=== PATIENT | female | born 1940 | race Caucasian/White ===

== ENCOUNTER 2017-10-21 10:52 | Emergency (ER) | payer MEDICARE, MEDICAID, SELFPAY ==
[2017-10-21 11:13] VITALS: BP 160/90; PULSE 70; RESP 16; TEMP 37.1; O2SAT 96; BMI 29.0
--- NOTE | 2017-10-21 11:16 | XR_ITS ---
XR hand RT min 3V HISTORY: ITS.REASON: pain ORDERING PHYSICIAN: Jinny Crow MD PATIENT AGE: 77 years COMPARISON: 03/26/2017 FINDINGS: Gull wing deformity involves the PIP of the third, fourth, and fifth digit and the DIP of the second and third digits as well as the fifth DIP with central erosions and marginal proliferation with diffuse loss of cartilage space consistent with erosive osteoarthritis. Osteoarthritic changes also involve the first metacarpal carpal joint and first interphalangeal joint as well as the second metacarpal phalangeal joint. There is mild are subluxation of the middle phalanx of the third, fourth, and fifth fingers. No fracture or dislocation. No lytic or blastic change. There may be an old fracture of the distal radius. IMPRESSION: Erosive osteoarthritis of the right hand, no significant change from 03/26/2017
--- NOTE | 2017-10-21 11:19 | HMH.EDUTC ---
[facility] – [place] Disposition Clinical Impression: Radial fracture Qualifiers: Encounter type: initial encounter Radius location: distal Fracture morphology: other fracture Laterality: right Disposition: Home, Self-Care Condition on Discharge: Good Instructions: How To Perform RICE (Rest, Ice, Compress, Elevate), DI for Forearm Fracture Additional Instructions: *RICE, Rest the extremity, Ice 15-20 minutes 3-4 times daily, Compress- wear the warren wrap as discussed as much as possible to help reduce swelling and pain, Elevate the extremity when at rest *Warren wrap is for support and help control swelling, use it except in the shower. Be sure that is not to tight but not to loose either *Elevate when resting *Ibuprofen 600-800mg every 6-8 hours as needed for pain an inflammation. If need something more can take Tylenol in between doses of Ibuprofen to help Immediately follow up for new or worsening of symptoms, or no noticeable improvement over the next 3-5 days Follow up with Dr Chakraborty or Dr [facility] Call tomorrow to make appointment Wear splint until seen by Ortho Follow up with family doctor Referrals: Osvaldo Gomez MD [Primary Care Provider] - Time of Disposition: 12:02 Medical Decision Making - Medical Records Medical records reviewed: Yes: I reviewed the patient's medical records. Vital Signs: 10/21/17 11:13 Temperature 98.8 F Temperature Source Temporal Artery Scan Pulse Rate [Left Brachial] 70 Respiratory Rate 16 Blood Pressure [Left Arm] 160/90 Blood Pressure Mean [Left Arm] 113 Blood Pressure Source [Left Arm] Automatic Cuff Blood Pressure Position [Left Arm] Sitting 02 Sat by Pulse Oximetry 96 Oxygen Delivery Method Room Air Orders (Tests/Meds): ED MEDICATIONS Discontinued Medications Generic Name Dose Route Start Last Admin Trade Name Freq PRN Reason Stop Dose Admin Ibuprofen 600 mg 10/21/17 11:22 10/21/17 11:26 Motrin 600mg Tablet PO 10/21/17 11:23 600 mg ONCE ONE Administration ORDERS Category Date Time Status XR hand RT min 3V Stat Exams 10/21/17 11:16 Taken - Radiology Data #1 Image(s): Wrist Image Reviewed: Yes I reviewed the patient's radiology image w/the ED provider subacute distal radial fracture - Akin Inquiry Pt receiving controlled substance: No Akin was queried for this patient: No [facility] UTC HPI - General Stated complaint: r hand pain Mode of Arrival: Ambulatory Source of Information: Patient Limitations: No Limitations Description of Symptoms (Recalled from Triage Doc. by RN): C/O rt hand pain since this morning. No known injury HEENT Symptoms (Recalled from RN notes): No Resp Symptoms (Recalled from RN notes): No Skin Symptoms (Recalled from RN notes): No MS Symptoms (Recalled from RN notes): Yes (Rt hand pain) Functional Status (Recalled from RN notes): n/a - History of Present Illness Provider Complaint: Patient state that she woke up this morning and she was having pain and swelling in her right hand State that she seen her Rhematologist last week and they discussed doing injections in that arm because she has been having pain on and off for several months Grand-daughter in room and advised that patient has a 95lb dog and it recently jumped up on her and hit her right hand and it was after that the pain and swelling started State that she has a history of osteoarthritis - Related Data Allergies Allergy/AdvReac Type Severity Reaction Status Date / Time acetaminophen [From PERCOCET] Allergy Mild Verified 10/21/17 11:17 codeine [CODEINE] Allergy Mild Verified 10/21/17 11:17 morphine [MORPHINE] Allergy Mild Verified 10/21/17 11:17 oxycodone [From PERCOCET] Allergy Mild Verified 10/21/17 11:17 penicillin G [PENICILLIN G] Allergy Mild Verified 10/21/17 11:17 loratadine [From CLARITIN] Allergy Unknown Verified 10/21/17 11:17 - Worker's Comp Is this a Worker's Comp case?: No [facility] History I have reviewed the patient's
--- NOTE | 2017-10-21 11:24 | ED_ITS ---
[facility] [place] Clinical Impression: Radial fracture Qualifiers: Encounter type: initial encounter Radius location: distal Fracture morphology: other fracture Laterality: right Disposition: Home, Self-Care Condition on Discharge: Good Instructions: How To Perform RICE (Rest, Ice, Compress, Elevate), DI for Forearm Fracture Additional Instructions: *RICE, Rest the extremity, Ice 15-20 minutes 3-4 times daily, Compress- wear the warren wrap as discussed as much as possible to help reduce swelling and pain, Elevate the extremity when at rest *Warren wrap is for support and help control swelling, use it except in the shower. Be sure that is not to tight but not to loose either *Elevate when resting *Ibuprofen 600-800mg every 6-8 hours as needed for pain an inflammation. If need something more can take Tylenol in between doses of Ibuprofen to help Immediately follow up for new or worsening of symptoms, or no noticeable improvement over the next 3-5 days Follow up with Dr Chakraborty or Dr [facility] Call tomorrow to make appointment Wear splint until seen by Ortho Follow up with family doctor Referrals: Osvaldo Gomez MD [Primary Care Provider] - Time of Disposition: 12:02 Medical Decision Making - Medical Records Medical records reviewed: Yes: I reviewed the patient's medical records. Vital Signs: 10/21/17 11:13 Temperature 98.8 F Temperature Source Temporal Artery Scan Pulse Rate [Left Brachial] 70 Respiratory Rate 16 Blood Pressure [Left Arm] 160/90 Blood Pressure Mean [Left Arm] 113 Blood Pressure Source [Left Arm] Automatic Cuff Blood Pressure Position [Left Arm] Sitting 02 Sat by Pulse Oximetry 96 Oxygen Delivery Method Room Air Orders (Tests/Meds): ED MEDICATIONS Discontinued Medications Generic Name Dose Route Start Last Admin Trade Name Freq PRN Reason Stop Dose Admin Ibuprofen 600 mg 10/21/17 11:22 10/21/17 11:26 Motrin 600mg Tablet PO 10/21/17 11:23 600 mg ONCE ONE Administration ORDERS Category Date Time Status XR hand RT min 3V Stat Exams 10/21/17 11:16 Taken - Radiology Data #1 Image(s): Wrist Image Reviewed: Yes I reviewed the patient's radiology image w/the ED provider subacute distal radial fracture - Akin Inquiry Pt receiving controlled substance: No Akin was queried for this patient: No [facility] UTC HPI - General Stated complaint: r hand pain Mode of Arrival: Ambulatory Source of Information: Patient Limitations: No Limitations Description of Symptoms (Recalled from Triage Doc. by RN): C/O rt hand pain since this morning. No known injury HEENT Symptoms (Recalled from RN notes): No Resp Symptoms (Recalled from RN notes): No Skin Symptoms (Recalled from RN notes): No MS Symptoms (Recalled from RN notes): Yes (Rt hand pain) Functional Status (Recalled from RN notes): n/a - History of Present Illness Provider Complaint: Patient state that she woke up this morning and she was having pain and swelling in her right hand State that she seen her Rhematologist last week and they discussed doing injections in that arm because she has been having pain on and off for several months Grand-daughter in room and advised that patient has a 95lb dog and it recently jumped up on her and hit her right hand and it was after that the pain and swelling started State that she has a history o
[2017-10-21 12:11] VITALS: BP 160/90; PULSE 70; RESP 16; TEMP 37.1; O2SAT 96
== END 2017-10-21 12:13 | disposition home or self-care (01) ==
PROVIDERS: Emergency Provider Emergency Medicine; Family Provider Family Medicine; PCP Family Medicine
DX: S52.90XA Unspecified fracture of unspecified forearm, initial encounter for closed fracture (principal); W54.1XXA Struck by dog, initial encounter; Y92.019 Unspecified place in single-family (private) house as the place of occurrence of the external cause; Z88.0 Allergy status to penicillin; Z88.6 Allergy status to analgesic agent
CPT/HCPCS: 29125; G0463; 73130; 99203

== ENCOUNTER → 2017-10-31 08:38 | Outpatient (CLI) | payer MEDICARE, MEDICAID, SELFPAY ==
[2017-10-31 08:43] LABS: Microscopic, Urine URINE MICROSCOPIC (MICROSCOPIC)
[2017-10-31 09:06] LABS: Basophils % 0.3 % (0.1-2.0); Eosinophils # 0.3 K/mm3 (0.0-0.4); Eosinophils % 3.6 % (0.1-12.0); Hematocrit 40.4 % (37.0-47.0); Lymphocytes # 1.6 K/mm3 (0.7-4.5); Lymphocytes % 18.8 K/mm3 (10-50); Mean Corpuscular HGB Conc 32.1 g/dL (31.8-35.4); Mean Corpuscular Hemoglobin 30.4 pg (27.0-31.2); Mean Corpuscular Volume 94.7 fl (81-99); Mean Platelet Volume 6.8 fl (7.4-10.4); Monocytes # 0.3 K/mm3 (0.1-1.0); Monocytes % 4.1 % (1.7-9.3); Neutrophils % 73.3 % (37.0-80.0); Platelet Count 384 K/mm3 (142-424); Red Blood Count 4.27 M/mm3 (4.20-5.40); White Blood Count 8.2 K/mm3 (4.8-10.8)
[2017-10-31 09:17] LABS: Prothrombin Time 9.7 seconds (9.4-11.8)
[2017-10-31 09:18] LABS: Appearance,Urine CLEAR (Clear); Bilirubin,Urine Negative (Negative); Blood, Urine Negative (Negative); Color,Urine YELLOW (Yellow); Glucose,Urine (UA) Negative (Negative); Ketones,Urine Negative (Negative); Leukocyte Esterase,Urine Negative (Negative); Nitrate,Urine Negative (Negative); PH,Urine 7.5 (5.0-8.5); Protein,Urine Negative (Negative); Urobilinogen,Urine 0.2 EU/dl (0.2)
--- NOTE | 2017-10-31 09:20 | XR_ITS ---
XR chest 2V HISTORY: ITS.REASON: SHORTNESS OF BREATH ORDERING PHYSICIAN: Osvaldo Gomez MD PATIENT AGE: 77 years COMPARISON: 01/30/2016 FINDINGS: Unremarkable cardiovascular structures. Calcified granulomas present in the left lower lobe. The lungs are otherwise clear. No acute infiltrate. There is an epidural catheter in the midthoracic region posteriorly. Prior spinal fusion of the lumbar spine with multiple interpedicular screws. 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 IMPRESSION: As above, no acute finding
[2017-10-31 09:24] LABS: Bacteria,Urine Trace /lpf
[2017-10-31 10:24] LABS: Blood Urea Nitrogen 13 mg/dL (7-18); Carbon Dioxide 33 mmol/L (21.0-32.0); Chloride 107 mmol/L (98-107); Creatinine,Serum 0.73 mg/dL (0.55-1.02); Estimated Glomerular Filt Rate 78 ml/min (>60); GFR (African American) 94 ML/MIN (>60); Glucose 100 mg/dL (74-106); Sodium 144 mmol/L (136-145)
== END ==
PROVIDERS: Visit Provider Family Medicine
DX: Z01.818 Encounter for other preprocedural examination (principal); Z51.81 Encounter for therapeutic drug level monitoring
CPT/HCPCS: 36415; 71046; 80048; 81001; 85025; 85610; 85730; 93005

== ENCOUNTER 2017-11-25 13:12 | Emergency (ER) | payer MEDICARE, MEDICAID, SELFPAY ==
--- NOTE | 2017-11-25 | NVE_ITS ---
Venous Exam Indications: 729.5 Pain in limb. 729.81 Swelling of limb. IMPRESSIONS No evidence of deep or superficial vein thrombosis involving the left lower extremity Left lower extremity venous duplex evaluation. Doppler flow study including spectral analysis, color and kemp scale imaging. Location: Bedside. Patient status: Emergency department. CRITICAL FINDINGS - Reported to: Dr. Crow - Read back and verified. - 11/25/2017 - 5:00 PM Tables: Venous flow and imaging: + +-------+ + Location Overall Flow properties + +-------+ + Left common femoral Patent Normal phasicity; spontaneous; normal augmentation; compressible + +-------+ + Left saphenofemoral junction Patent Compressible + +-------+ + Left profunda femoral Patent Compressible + +-------+ + Left femoral Patent Normal phasicity; spontaneous; normal augmentation; compressible + +-------+ + Left greater saphenous Patent Normal phasicity; spontaneous; normal augmentation; compressible + +-------+ + Left popliteal Patent Normal phasicity; spontaneous; normal augmentation; compressible + +-------+ + Left posterior tibial Patent Compressible + +-------+ + Left peroneal Patent Compressible + +-------+ + Left gastrocnemius Patent Compressible + +-------+ + Left soleal Patent Compressible + +-------+ + (Report amended ) Electronically signed by: Elver Reis [id number]
[2017-11-25 13:23] VITALS: BP 122/82; PULSE 72; RESP 16; TEMP 36.6; O2SAT 97; BMI 29.0
--- NOTE | 2017-11-25 13:52 | HMH.EDEXTP ---
ED Disposition Clinical Impression: CHF (congestive heart failure), History of knee replacement procedure of left knee, Non-compliance with treatment, Leg edema, Cellulitis Disposition: Home, Self-Care Condition on Discharge: Fair Instructions: DI for Skin Abscess Additional Instructions: 1- leg elevation at rest and robby hoses when standing. . 2- use diuretic regularly, no added salt. 3- start bactrim DS BId. 4- follow up with Dr Park in am 5- do not rupture the bullae or infection will happen. 6- call Dr Mcclain in AM for a follow up. Prescriptions: Sulfamethoxazole/Trimethoprim [Bactrim DS tablet] 1 each PO BID #20 tab Referrals: Osvaldo Mcclain MD [Primary Care Provider] - - Critical Care Critical Care Time: No Attestation: On 11/25/17, the high probability of a clinically significant, sudden or life threatening deterioration of the following system(s) required my full and direct attention, intervention and personal management. The time I documented below is in addition to time spent performing reported procedures but includes the following listed in this critical care notation. Medical Decision Making - Akin Inquiry Pt receiving controlled substance: No Akin was queried for this patient: No Vital Signs: 11/25/17 13:23 11/25/17 15:51 Temperature 97.8 F Temperature Source Oral Pulse Rate [Left Radial] 72 69 Respiratory Rate 16 18 Blood Pressure [Left Arm] 122/82 147/73 Blood Pressure Mean [Left Arm] 95 97 Blood Pressure Source [Left Arm] Automatic Cuff Automatic Cuff Blood Pressure Position [Left Arm] Sitting Sitting 02 Sat by Pulse Oximetry 97 98 Oxygen Delivery Method Room Air Room Air - Lab Data Lab Results 11/25/17 14:12: WBC 8.1, RBC 3.57 L, Hgb 10.9 L, Hct 34.2 L, MCV 95.8, MCH 30.6, MCHC 32.0, RDW 13.2, Plt Count 482 H, MPV 7.2 L, Neut % (Auto) 71.1, Lymph % (Auto) 20.9, [place] % (Auto) 4.2, Eos % (Auto) 3.3, Baso % (Auto) 0.4, Neut # (Auto) 5.8, Lymph # (Auto) 1.7, [place] # (Auto) 0.3, Eos # (Auto) 0.3, Baso # (Auto) 0.0, ESR 99 H 11/25/17 14:12: D-Dimer 3310 H* 11/25/17 14:12: Sodium 142, Potassium 3.8, Chloride 106, Carbon Dioxide 30, Anion Gap 9.8, BUN 12, Creatinine 0.74, Estimated Creat Clear 63, Estimated GFR 77, Est GFR ( Amer) 93, Glucose 94, Uric Acid 5.8, C-Reactive Protein 7.2 H Result diagrams: 11/25/17 14:12 11/25/17 14:12 Orders (Tests/Meds): ED MEDICATIONS Discontinued Medications Generic Name Dose Route Start Last Admin Trade Name Freq PRN Reason Stop Dose Admin Furosemide 40 mg 11/25/17 13:58 11/25/17 14:14 Lasix 40mg/4ml Vial IV 11/25/17 13:59 40 mg ONCE ONE Administration Ceftriaxone Sodium 1 gm/ 50 mls @ 100 mls/hr 11/25/17 15:43 11/25/17 15:49 Sodium Chloride IV 11/25/17 16:12 100 mls/hr ONCE ONE Administration Protocol ORDERS Category Date Time Status US extremity LT limited Stat Exams 11/25/17 15:06 Ordered - US Data US Images: Lower Extremity ED US Reviewed: Yes: I have reviewed the patient's US results Preliminary Findings: Normal/NAD Findings Narrative: I discussed with the us technologist and the study was negative for DVT. Medical Decision Narrative: I discussed with the patient and her daughter the need for leg elevation and use ROBBY hose use the diuretics appropriately and started on antibiotics and see Dr. Park in the morning. Extremity Problem HPI - General Chief complaint: Skin/Abscess/Foreign Body Stated complaint: Surgery 11/14/17 Left Knee replace. knee &foot swe Time Seen by Provider: 11/25/17 14:00 Mode of Arrival: Ambulatory Limitations: No Limitations Description of Symptoms (Recalled from ER Triage Doc. by RN): LEFT KNEE SURGERY ON THE AND NOW HAS SWELLING DISTAL TO THE SURGICAL SITE, REDNESS AND WARMTH. BLISTER ON FEET. - History of Present Illness HPI Narrative: 77 years old white female with history of congestive heart failure and b
--- NOTE | 2017-11-25 13:55 | ED_ITS ---
ED Disposition Clinical Impression: CHF (congestive heart failure), History of knee replacement procedure of left knee, Non-compliance with treatment, Leg edema, Cellulitis Disposition: Home, Self-Care Condition on Discharge: Fair Instructions: DI for Skin Abscess Additional Instructions: 1- leg elevation at rest and todd hoses when standing. . 2- use diuretic regularly, no added salt. 3- start bactrim DS BId. 4- follow up with Dr Park in am 5- do not rupture the bullae or infection will happen. 6- call Dr Mcclain in AM for a follow up. Prescriptions: Sulfamethoxazole/Trimethoprim [Bactrim DS tablet] 1 each PO BID #20 tab Referrals: Osvaldo Mcclain MD [Primary Care Provider] - - Critical Care Critical Care Time: No Attestation: On 11/25/17, the high probability of a clinically significant, sudden or life threatening deterioration of the following system(s) required my full and direct attention, intervention and personal management. The time I documented below is in addition to time spent performing reported procedures but includes the following listed in this critical care notation. Medical Decision Making - Akin Inquiry Pt receiving controlled substance: No Akin was queried for this patient: No Vital Signs: 11/25/17 13:23 11/25/17 15:51 Temperature 97.8 F Temperature Source Oral Pulse Rate [Left Radial] 72 69 Respiratory Rate 16 18 Blood Pressure [Left Arm] 122/82 147/73 Blood Pressure Mean [Left Arm] 95 97 Blood Pressure Source [Left Arm] Automatic Cuff Automatic Cuff Blood Pressure Position [Left Arm] Sitting Sitting 02 Sat by Pulse Oximetry 97 98 Oxygen Delivery Method Room Air Room Air - Lab Data Lab Results 11/25/17 14:12: WBC 8.1, RBC 3.57 L, Hgb 10.9 L, Hct 34.2 L, MCV 95.8, MCH 30.6 , MCHC 32.0, RDW 13.2, Plt Count 482 H, MPV 7.2 L, Neut % (Auto) 71.1, Lymph % ( Auto) 20.9, [place] % (Auto) 4.2, Eos % (Auto) 3.3, Baso % (Auto) 0.4, Neut # (Auto ) 5.8, Lymph # (Auto) 1.7, [place] # (Auto) 0.3, Eos # (Auto) 0.3, Baso # (Auto) 0.0, ESR 99 H 11/25/17 14:12: D-Dimer 3310 H* 11/25/17 14:12: Sodium 142, Potassium 3.8, Chloride 106, Carbon Dioxide 30, Anion Gap 9.8, BUN 12, Creatinine 0.74, Estimated Creat Clear 63, Estimated GFR 77, Est GFR ( Amer) 93, Glucose 94, Uric Acid 5.8, C-Reactive Protein 7.2 H Result diagrams: 11/25/17 14:12 11/25/17 14:12 Orders (Tests/Meds): ED MEDICATIONS Discontinued Medications Generic Name Dose Route Start Last Admin Trade Name Freq PRN Reason Stop Dose Admin Furosemide 40 mg 11/25/17 13:58 11/25/17 14:14 Lasix 40mg/4ml Vial IV 11/25/17 13:59 40 mg ONCE ONE Administration Ceftriaxone Sodium 1 gm/ 50 mls @ 100 mls/hr 11/25/17 15:43 11/25/17 15:49 Sodium Chloride IV 11/25/17 16:12 100 mls/hr ONCE ONE Administration Protocol ORDERS Category Date Time Status US extremity LT limited Stat Exams 11/25/17 15:06 Ordered - US Data US Images: Lower Extremity ED US Reviewed: Yes: I have reviewed the patient's US results Preliminary Findings: Normal/NAD Findings Narrative: I discussed with the us technologist and the study was negative for DVT. Medical Decision Narrative: I discussed with the patient and her daughter the need for leg elevation and
[2017-11-25 14:23] LABS: Basophils % 0.4 % (0.1-2.0); Eosinophils # 0.3 K/mm3 (0.0-0.4); Eosinophils % 3.3 % (0.1-12.0); Hematocrit 34.2 % (37.0-47.0); Hemoglobin 10.9 g/dL (12.2-16.2); Lymphocytes # 1.7 K/mm3 (0.7-4.5); Lymphocytes % 20.9 K/mm3 (10-50); Mean Corpuscular Hemoglobin 30.6 pg (27.0-31.2); Mean Corpuscular Volume 95.8 fl (81-99); Mean Platelet Volume 7.2 fl (7.4-10.4); Monocytes # 0.3 K/mm3 (0.1-1.0); Monocytes % 4.2 % (1.7-9.3); Neutrophils # 5.8 K/mm3 (1.8-7.8); Neutrophils % 71.1 % (37.0-80.0); Platelet Count 482 K/mm3 (142-424); Red Blood Count 3.57 M/mm3 (4.20-5.40); Red Cell Distribution Width 13.2 % (11.5-17.5); White Blood Count 8.1 K/mm3 (4.8-10.8)
[2017-11-25 14:30] LABS: Anion Gap 9.8 mEq/L (5-15); Blood Urea Nitrogen 12 mg/dL (7-18); C-Reactive Protein 7.2 mg/L (0.0-0.9); Carbon Dioxide 30 mmol/L (21.0-32.0); Chloride 106 mmol/L (98-107); Creatinine Clearance Estimated 63 mL/min (0-300); Creatinine,Serum 0.74 mg/dL (0.55-1.02); Estimated Glomerular Filt Rate 77 ml/min (>60); GFR (African American) 93 ML/MIN (>60); Glucose 94 mg/dL (74-106); Potassium 3.8 mmoL/L (3.5-5.1); Sodium 142 mmol/L (136-145); Uric Acid 5.8 mg/dL (2.6-7.2)
[2017-11-25 14:52] LABS: D-Dimer 3310 (0-400)
[2017-11-25 15:03] LABS: Erythrocyte Sedimentation Rate 99 mm/hr (0-30)
--- NOTE | 2017-11-25 15:23 | PC.NURSE ---
[facility] called and stated that they were on their way in and would be approx 45 mins until arrival.
[2017-11-25 15:51] VITALS: BP 147/73; PULSE 69; RESP 18; O2SAT 98
--- NOTE | 2017-11-25 16:25 | PC.NURSE ---
[facility] at bedside at this time.
[2017-11-25 17:16] VITALS: BP 156/88; PULSE 64; RESP 18; TEMP 36.6; O2SAT 95
== END 2017-11-25 17:00 | disposition home or self-care (01) ==
PROVIDERS: Emergency Provider Emergency Medicine; Family Provider Family Medicine; PCP Family Medicine
DX: R60.0 Localized edema (principal); Z96.652 Presence of left artificial knee joint; I50.9 Heart failure, unspecified; L03.116 Cellulitis of left lower limb; Z88.0 Allergy status to penicillin; Z88.6 Allergy status to analgesic agent; Z88.8 Allergy status to other drugs, medicaments and biological substances
CPT/HCPCS: 80048; 84550; 85025; 85378; 85651; 86140; 93971; 96374; 96375; 99284

== ENCOUNTER → 2018-03-11 10:12 | Outpatient (CLI) | payer MEDICARE, MEDICAID, SELFPAY ==
--- NOTE | 2018-03-11 10:14 | MM_ITS ---
MM Dig screening mamm BI w/CAD CAD Screening COMPARISON: Digital mammograms 01/29/2017 and additional views left breast 02/09/2017 INDICATION: There is no personal or family history of breast cancer TECHNIQUE: Standard CC and MLO images were obtained. R2 CAD reviewed. FINDINGS: The breasts are composed primarily of fat with minimal scattered fibroglandular densities in the subareolar regions bilaterally. There is arterial calcification in each breast and there are few scattered benign-appearing microcalcifications in each breast. There is a mole marker on each breast. There is no new or suspicious lesion in either breast and there are no suspicious microcalcifications. IMPRESSION: Fibrofatty parenchyma with no suspicious lesion seen BI-RADS Category: 2 Benign Finding(s) RECOMMENDED FOLLOW-UP: 1YR - 1 YEAR FOLLOW-UP (A letter has been sent to the patient regarding results of the study.)
== END ==
PROVIDERS: Family Provider Family Medicine; PCP Family Medicine; Visit Provider Family Medicine
DX: Z12.31 Encounter for screening mammogram for malignant neoplasm of breast (principal)
CPT/HCPCS: 77067

== ENCOUNTER 2018-11-16 12:53 | Observation (INO) ==
[2018-11-16 13:32] LABS: Basophils % 0.5 % (0.1-2.0); Eosinophils % 0.9 % (0.1-12.0); Hematocrit 40.9 % (37.0-47.0); Hemoglobin 13.8 g/dL (12.2-16.2); Lymphocytes # 1.3 K/mm3 (0.7-4.5); Lymphocytes % 29.7 % (10-50); Mean Corpuscular HGB Conc 33.8 g/dL (31.8-35.4); Mean Corpuscular Hemoglobin 31.2 pg (27.0-31.2); Mean Corpuscular Volume 92.5 fl (81-99); Mean Platelet Volume 6.8 fl (7.4-10.4); Monocytes # 0.3 K/mm3 (0.1-1.0); Monocytes % 6.4 % (1.7-9.3); Neutrophils # 2.6 K/mm3 (1.8-7.8); Neutrophils % 62.4 % (37.0-80.0); Platelet Count 243 K/mm3 (142-424); Red Blood Count 4.42 M/mm3 (4.20-5.40); Red Cell Distribution Width 13.6 % (11.5-17.5); White Blood Count 4.2 K/mm3 (4.8-10.8)
[2018-11-16 13:52] LABS: Alanine Aminotransferase 65 U/L (12-78); Albumin Level 3.3 gm/dL (3.4-5.0); Albumin/Globulin Ratio 0.8 (1.1-1.8); Alkaline Phosphatase 195 U/L (46-116); Anion Gap 11.9 mEq/L (5-15); Aspartate Amino Transferase 49 U/L (15-37); Bilirubin,Total 0.4 mg/dL (0.2-1.0); Blood Urea Nitrogen 9 mg/dL (7-18); Calcium 9.1 mg/dL (8.5-10.1); Carbon Dioxide 28 mmol/L (21.0-32.0); Chloride 103 mmol/L (98-107); Globulin 3.9 gm/dl (1.3-3.2); Glucose 99 mg/dL (74-106); Potassium 3.9 mmoL/L (3.5-5.1); Sodium 139 mmol/L (136-145); Total Protein,Serum 7.2 gm/dL (6.4-8.2)
--- NOTE | 2018-11-16 14:42 | Emergency Department Note ---
ED Disposition Clinical Impression: RLL pneumonia, Enteritis, Hypernatremia, Weakness Disposition: Still a Patient Condition on Discharge: Fair Referrals: Osvaldo Gomez MD [Primary Care Provider] - - Critical Care Critical Care Time: No Attestation: On , the high probability of a clinically significant, sudden or life threatening deterioration of the following system(s) required my full and direct attention, intervention and personal management. The time I documented below is in addition to time spent performing reported procedures but includes the following listed in this critical care notation. Medical Decision Making - Akin Inquiry Pt receiving controlled substance: No Akin was queried for this patient: No Vital Signs: 11/16/18 13:07 11/16/18 14:19 11/16/18 14:30 Temperature 99.5 F Temperature Source Oral Pulse Rate [Left Radial] 79 65 65 Respiratory Rate 18 Blood Pressure [Right Arm] 163/97 H 160/84 H 163/98 H Blood Pressure Mean [Right Arm] 119 109 119 Blood Pressure Source [Right Arm] Automatic Cuff Blood Pressure Position [Right Arm] Sitting 02 Sat by Pulse Oximetry 95 98 94 L Oxygen Delivery Method Room Air - Lab Data Lab Results 11/16/18 13:15: WBC 4.2 L, RBC 4.42, Hgb 13.8, Hct 40.9, MCV 92.5, MCH 31.2, MCHC 33.8, RDW 13.6, Plt Count 243, MPV 6.8 L, Neut % (Auto) 62.4, Lymph % (Auto) 29.7, [place] % (Auto) 6.4, Eos % (Auto) 0.9, Baso % (Auto) 0.5, Neut # (Auto) 2.6, Lymph # (Auto) 1.3, [place] # (Auto) 0.3, Eos # (Auto) 0.0, Baso # (Auto) 0.0 11/16/18 13:15: Sodium 139, Potassium 3.9, Chloride 103, Carbon Dioxide 28, Anion Gap 11.9, BUN 9, Creatinine 0.80, Estimated Creat Clear 59, Estimated GFR 70, Est GFR ( Amer) 84, Glucose 99, Calcium 9.1, Total Bilirubin 0.4, AST 49 H, ALT 65, Alkaline Phosphatase 195 H, Troponin I < 0.02, Total Protein 7.2, Albumin 3.3 L, Globulin 3.9 H, Albumin/Globulin Ratio 0.8 L 11/16/18 13:15: Lactate 0.3 L Result diagrams: 11/16/18 13:15 11/16/18 13:15 Orders (Tests/Meds): ED MEDICATIONS Generic Name Dose Route Start Last Admin Trade Name Freq PRN Reason Stop Dose Admin Sodium Chloride 1,000 mls @ 999 mls/hr 11/16/18 14:00 11/16/18 13:55 Sod Chlor 0.9% 1000ml Bag IV 11/16/18 15:00 999 mls/hr .[id number] NANDO Administration Discontinued Medications Generic Name Dose Route Start Last Admin Trade Name Freq PRN Reason Stop Dose Admin Ondansetron HCl 4 mg 11/16/18 13:50 11/16/18 13:55 Zofran 4mg/2ml Vial IV 11/16/18 13:51 4 mg ONCE ONE Administration ORDERS Category Date Time Status XR chest 2V Stat Exams 11/16/18 13:13 Taken Blood Culture Stat Micro 11/16/18 13:15 Received - Radiology Data #1 Image(s): Chest Image Reviewed: Yes I reviewed the patient's radiology image Preliminary Findings: Abnormal RLL infiltrates - CT Data CT Scan: Abdomen, Pelvis Time Received: 14:[address] Reviewed: Yes: I have viewed the radiologist's interpretation Preliminary Findings: Abnormal Findings Narrative: enteritis. Medical Decision Narrative: I discussed with Dr cope who agreed to admit for Dr Cope. General Adult HPI - General Chief complaint: Weakness Stated complaint: weakness,vomiting Time Seen by Provider: 11/16/18 13:20 Mode of Arrival: Ambulatory Limitations: No Limitations Description of Symptoms (Recalled from ER Triage Doc. by RN): Son states that pt was at doctor office yesterday and was dx with bronchitis. she is c/o aches, weakness, cough. low abdomen pain and vomiting. Son is concerned that she has the flu due to her daughter having it and she being around her, states they tested her yesterday but it was negative. - History of Present Illness HPI narrative: 78 years old white female has been experiencing upper respiratory symptoms in the form of cough congestion yellow sputum. Seen by her primary care physician she was given Zithromax with no improvement she continues to feel weak until today she developed vomiting and had one episode of diarrhea. Onset (ago): day(s) Radiation: non-radiation Relieving factors: none Exacerbating factors: none Associated symptoms: nausea/vomiting, weakness Treatments prior to arrival: other - Related Data Home Medications Medication Instructions Recorded Confirmed atorvastatin 20 mg tablet 20 mg PO DAILY tab 03/19/18 cholecalciferol (vitamin D3) 2,000 2,000 unit PO DAILY cap 03/19/18 unit capsule diclofenac sodium 75 mg 75 mg PO BID 03/19/18 tablet,delayed release esomeprazole magnesium 40 mg 40 mg PO DAILY cap 03/19/18 capsule,delayed release furosemide 40 mg tablet 40 mg PO DAILY tab 03/19/18 glucosamine HCl 1,500 mg tablet 1,500 mg PO BID tab 03/19/18 multivitamin tablet 1 tab PO QAM 03/19/18 omega-3 fatty acids 1,000 mg 1,000 mg PO BID cap 03/19/18 capsule vitamin B complex tablet 1 tab PO DAILY tab 03/19/18 Allergies Allergy/AdvReac Type Severity Reaction Status Date / Time acetaminophen [From PERCOCET] Allergy Mild Verified 11/25/17 13:39 codeine [CODEINE] Allergy Mild Verified 11/25/17 13:39 cyclobenzaprine Allergy Mild Verified 11/25/17 13:42 [From Flexeril] morphine [MORPHINE] Allergy Mild Verified 11/25/17 13:39 oxycodone [From PERCOCET] Allergy Mild Verified 11/25/17 13:39 penicillin G [PENICILLIN G] Allergy Mild Verified 11/25/17 13:39 loratadine [From CLARITIN] Allergy Unknown Verified 11/25/17 13:39 meperidine [From Demerol] AdvReac Mild Verified 11/25/17 13:42 [facility] History - Hepatitis A Screen Drug use history?: No High risk sexual behaviors?: No History of sexually transmitted infection?: No Currently employed?: No Childcare worker?: No Do you have indoor plumbing?: Yes Do you have electricity?: Yes Attestation statement:: This patient has been screened for Hepatitis A risk factors. I have reviewed the patient's past medical history: Yes Medical History: Reports:: Gastroesophageal Reflux Disease(GERD), Heart Murmur, Hyperlipidemia Denies:: Diabetes Mellitus Type 1, Diabetes Mellitus Type 2 Other Medical History: Reports: Liver Disease Laterality Cases: Right: Carpal Tunnel Release Other Surgeries: Yes: Hysterectomy-Total, Skin Cancer Excision, Other (Back Sx, Foot Sx) Amputation: No Fractures: Yes (RIGHT WRIST) - Social History Smoking Status: Never smoker Alcohol Intake: never Alcohol Intake Frequency:: other Substance Use Type: denies use Occupational Status: other - Psychiatric History Expresses thoughts of harming self/others: None Suicide Plan Description: No Plan Family Hx:: Coronary Artery Disease, Heart Attack ROS Obtained: Yes All systems reviewed & no additional complaints Physical Exam - General General appearance: alert, in no apparent distress - Head Head exam: atraumatic, normocephalic, normal inspection - Eye Eye exam: Present: normal appearance, PERRL, EOMI. Absent: scleral icterus, nystagmus - ENT ENT exam: Present: normal exam, normal oropharynx, mucous membranes moist, TM's normal bilaterally, normal external ear exam - Neck Neck exam: Present: normal inspection, full ROM, trachea midline. Absent: tenderness, meningismus, lymphadenopathy - Chest Chest inspection: Present: normal inspection, symmetric chest wall rise. Absent: tenderness - Respiratory Respiratory exam: Present: normal lung sounds bilaterally, wheezes. Absent: respiratory distress - Cardiovascular Cardiovascular exam: Present: regular rate, normal rhythm, normal heart sounds. Absent: JVD - Abdominal Exam Abdominal exam: Present: soft, tenderness, normal bowel sounds. Absent: distention, guarding, rebound, rigidity - Extremities Exam Extremities exam: Present: normal inspection, full ROM, normal capillary refill. Absent: tenderness, pedal edema, calf tenderness - Back Exam Back exam: Present: normal inspection. Absent: tenderness, CVA tenderness (R), CVA tenderness (L) - Neurological Exam Neurological exam: Present: alert, oriented X3, CN II-XII intact, motor sensory deficit, reflexes normal - Psychiatric Psychiatric exam: Present: normal affect, normal mood - Skin Skin exam: Present: warm, dry, intact, normal color - Lymphatic Lymphatic Findings: no adenopathy
--- NOTE | 2018-11-16 17:27 | History & Physical Report ---
*Admission Date: 11/16/18 *Chief complaint: Weak and aching *History of present illness: This 78-year-old white female was seen by Dr. Gomez in the office on 11/14/2018. At that time she was complaining of scratchy throat and a cough without much sputum production. She is having difficulty sleeping. She c omplained of headache pressure and aching all over. She was treated with azithromycin. She is continued not to feel well presented in the emergency room. She was admitted for further evaluation and treatment. She has had a lot of difficulty with back pain and is had back surgeries. He has had episodes of pneumonia. She has had pancreatitis in the past. She had a cholecystectomy in 2012. [facility] History Medical History: Reports:: Gastroesophageal Reflux Disease(GERD), Heart Murmur, Hyperlipidemia Denies:: Cancer, Diabetes Mellitus Type 1, Diabetes Mellitus Type 2, MRSA *Have you ever received a pneumonia vaccine?: No *Have you received a flu vaccine this season?: No Other Medical History: Reports: Liver Disease Laterality Cases: Right: Carpal Tunnel Release, Bilateral: Arthroscopy Knee Other Surgeries: Yes: Hysterectomy-Total, Skin Cancer Excision, Other (Back Sx, Foot Sx) Amputation: No Fractures: Yes (RIGHT WRIST) - *Social History Educational Level: Attended High School Smoking Status: Never smoker Alcohol Intake: never Alcohol Intake Frequency:: other Substance Use Type: denies use *Occupational Status:: other Housing: house Household Members: children *Travel in the last 8 weeks: None - Psychiatric History Expresses thoughts of harming self/others: None Suicide Plan Description: No Plan Family Hx:: Coronary Artery Disease, Heart Attack Review of Systems - Constitutional Reports body ache(s), Reports malaise, Reports weakness, Denies chills - Eyes Reports blurry vision - ENT Reports dry mouth, Reports ear pain, Reports nasal congestion, Reports sinus pressure, Denies mouth lesions Comments: She has had persistent left ear pain. - *Cardiovascular Denies chest pain, Denies shortness of breath, Denies generalized swelling - *Respiratory Reports chest congestion, Reports cough, Reports shortness of breath with activity - *Gastrointestinal Reports abdominal pain Comments: She has had one episode of vomiting. She had a normal bowel movement last night. - *Genitourinary Denies abnormal vaginal bleeding - *Musculoskeletal Reports muscle weakness - *Neurologic Reports unsteadiness, Denies abnormal speech, Denies behavioral changes - Psychiatric Reports depression - Hematologic/Lymphatic Denies easy bleeding - Allergic/Immunologic Reports GI upset with certain foods, Reports wheezing Meds Home Medications Medication Instructions Recorded Confirmed Type atorvastatin 20 mg tablet 20 mg PO DAILY tab 03/19/18 11/16/18 History cholecalciferol (vitamin D3) 2,000 2,000 unit PO DAILY cap 03/19/18 11/16/18 History unit capsule diclofenac sodium 75 mg 75 mg PO BID 03/19/18 11/16/18 History tablet,delayed release esomeprazole magnesium 40 mg 40 mg PO DAILY cap 03/19/18 11/16/18 History capsule,delayed release furosemide 40 mg tablet 40 mg PO DAILY tab 03/19/18 11/16/18 History glucosamine HCl 1,500 mg tablet 1,500 mg PO BID tab 03/19/18 11/16/18 History multivitamin tablet 1 tab PO QAM 03/19/18 11/16/18 History omega-3 fatty acids 1,000 mg 1,000 mg PO BID cap 03/19/18 11/16/18 History capsule vitamin B complex tablet 1 tab PO DAILY tab 03/19/18 11/16/18 History Allergies Allergy/AdvReac Type Severity Reaction Status Date / Time acetaminophen [From PERCOCET] Allergy Mild Verified 11/25/17 13:39 codeine [CODEINE] Allergy Mild Verified 11/25/17 13:39 cyclobenzaprine Allergy Mild Verified 11/25/17 13:42 [From Flexeril] morphine [MORPHINE] Allergy Mild Verified 11/25/17 13:39 oxycodone [From PERCOCET] Allergy Mild Verified 11/25/17 13:39 penicillin G [PENICILLIN G] Allergy Mild Verified 11/25/17 13:39 loratadine [From CLARITIN] Allergy Unknown Verified 11/25/17 13:39 meperidine [From Demerol] AdvReac Mild Verified 11/25/17 13:42 Exam Vital signs and Labs for Last 24 Hours: Temp Pulse Resp BP Pulse Ox 97.9 F 68 20 167/90 H 94 L 11/16/18 15:32 11/16/18 15:32 11/16/18 15:32 11/16/18 15:32 11/16/18 14:30 Laboratory Results - last 24 hr 11/16/18 13:15: WBC 4.2 L, RBC 4.42, Hgb 13.8, Hct 40.9, MCV 92.5, MCH 31.2, MCHC 33.8, RDW 13.6, Plt Count 243, MPV 6.8 L, Neut % (Auto) 62.4, Lymph % (Auto) 29.7, [place] % (Auto) 6.4, Eos % (Auto) 0.9, Baso % (Auto) 0.5, Neut # (Auto) 2.6, Lymph # (Auto) 1.3, [place] # (Auto) 0.3, Eos # (Auto) 0.0, Baso # (Auto) 0.0 11/16/18 13:15: Sodium 139, Potassium 3.9, Chloride 103, Carbon Dioxide 28, Anion Gap 11.9, BUN 9, Creatinine 0.80, Estimated Creat Clear 59, Estimated GFR 70, Est GFR ( Amer) 84, Glucose 99, Calcium 9.1, Total Bilirubin 0.4, AST 49 H, ALT 65, Alkaline Phosphatase 195 H, Troponin I < 0.02, Total Protein 7.2, Albumin 3.3 L, Globulin 3.9 H, Albumin/Globulin Ratio 0.8 L 11/16/18 13:15: Lactate 0.3 L I & O for Last 24 hours: Intake & Output 11/14/18 11/15/18 11/16/18 11/17/18 11:59 11:59 11:59 12:59 Weight 172 lb - Constitutional mild distress Comments: Says she is feels terrible. She feels weak. - *Routine HEENT Exam Head: Present: normocephalic Eye: Present: PERRL ENT: Present: mucous membranes dry - *Routine Neck Exam Present: supple - Routine Chest/Breast/Axilla Exam Chest wall: Absent: tenderness Comments: Surgical scar of the mid back over the spine. - *Routine Respiratory Exam Present: decreased breath sounds, rales (Fibrotic). Absent: respiratory distress - *Routine Cardiovascular Exam Present: RRR - *Routine Abdominal Exam Present: soft, tenderness (Mild nonspecific) - *Routine Extremities Exam Present: edema (Minimal) - *Routine Skin Exam Present: intact, dry - *Routine Neurological Exam Absent: motor deficit - Routine Psychiatric Exam Present: depressed, anxious H&P: Result - Imaging and Cardiology Chest x-ray Additional comments: See report of chest x-ray and CT of abdomen. Chest x-ray showed some atelectasis. The abdomen showed possible evidence of enteritis. Assessment and Plan (1) Enteritis Current visit: Yes Status: Acute Category: Medical Code(s): K52.9 - Noninfective gastroenteritis and colitis, unspecified (2) Weakness Current visit: Yes Status: Acute Category: Medical Code(s): R53.1 - Weakness - Assessment and plan all Dx Assessment and Plan for all problems:: See orders
[2018-11-17 06:11] LABS: Basophils % 0.4 % (0.1-2.0); Eosinophils % 0.2 % (0.1-12.0); Hematocrit 38.1 % (37.0-47.0); Hemoglobin 12.8 g/dL (12.2-16.2); Lymphocytes # 1.5 K/mm3 (0.7-4.5); Lymphocytes % 47.1 % (10-50); Mean Corpuscular HGB Conc 33.7 g/dL (31.8-35.4); Monocytes # 0.2 K/mm3 (0.1-1.0); Monocytes % 7.7 % (1.7-9.3); Neutrophils # 1.4 K/mm3 (1.8-7.8); Neutrophils % 44.6 % (37.0-80.0); Platelet Count 241 K/mm3 (142-424); Red Blood Count 4.14 M/mm3 (4.20-5.40); Red Cell Distribution Width 13.3 % (11.5-17.5); White Blood Count 3.1 K/mm3 (4.8-10.8)
[2018-11-17 06:27] LABS: Anion Gap 15.4 mEq/L (5-15); Calcium 8.7 mg/dL (8.5-10.1); Potassium 3.4 mmoL/L (3.5-5.1)
--- NOTE | 2018-11-17 09:25 | Progress Note ---
Internal Medicine - PN: Subj Interval history: Her chief complaint this morning is nausea. She has had no vomiting since admission. The Zofran seems to help. She has had no bowel movement for 2 days. She has had some mild mid abdominal discomfort but no severe pain. She still has a cough which is mostly nonproductive. Exam Vital signs and Labs for Last 24 Hours: Temp Pulse Resp BP Pulse Ox 98.5 F 71 20 150/87 H 97 11/17/18 04:00 11/17/18 04:00 11/17/18 04:00 11/17/18 04:00 11/17/18 04:00 Laboratory Results - last 24 hr 11/16/18 13:15: WBC 4.2 L, RBC 4.42, Hgb 13.8, Hct 40.9, MCV 92.5, MCH 31.2, MCHC 33.8, RDW 13.6, Plt Count 243, MPV 6.8 L, Neut % (Auto) 62.4, Lymph % (Auto) 29.7, [place] % (Auto) 6.4, Eos % (Auto) 0.9, Baso % (Auto) 0.5, Neut # (Auto) 2.6, Lymph # (Auto) 1.3, [place] # (Auto) 0.3, Eos # (Auto) 0.0, Baso # (Auto) 0.0 11/16/18 13:15: Sodium 139, Potassium 3.9, Chloride 103, Carbon Dioxide 28, Anion Gap 11.9, BUN 9, Creatinine 0.80, Estimated Creat Clear 59, Estimated GFR 70, Est GFR ( Amer) 84, Glucose 99, Calcium 9.1, Total Bilirubin 0.4, AST 49 H, ALT 65, Alkaline Phosphatase 195 H, Troponin I < 0.02, Total Protein 7.2, Albumin 3.3 L, Globulin 3.9 H, Albumin/Globulin Ratio 0.8 L 11/16/18 13:15: Lactate 0.3 L 11/16/18 13:15: TSH 2.36 11/17/18 05:45: WBC 3.1 L D, RBC 4.14 L, Hgb 12.8, Hct 38.1, MCV 92.0, MCH 31.0, MCHC 33.7, RDW 13.3, Plt Count 241, MPV 7.0 L, Neut % (Auto) 44.6, Lymph % (Auto) 47.1, [place] % (Auto) 7.7, Eos % (Auto) 0.2, Baso % (Auto) 0.4, Neut # (Auto) 1.4 L, Lymph # (Auto) 1.5, [place] # (Auto) 0.2, Eos # (Auto) 0.0, Baso # (Auto) 0.0 11/17/18 05:45: Sodium 142, Potassium 3.4 L, Chloride 107, Carbon Dioxide 23, Anion Gap 15.4 H, BUN 9, Creatinine 0.71, Estimated Creat Clear 61, Estimated GFR 80, Est GFR ( Amer) 97, Glucose 93, Calcium 8.7 I & O for Last 24 hours: Intake & Output 11/14/18 11/15/18 11/16/18 11/17/18 11:59 11:59 11:59 12:59 Weight 179 lb 2 oz Narrative: She appears not to feel well but no acute distress. Color is normal. Mucous membranes are slightly dry. Chest reveals coarse breath sounds. No rales or wheezes. Heart is regular. Abdomen is soft and nondistended with no unusual masses. Bowel sounds are diminished. There is mild epigastric tenderness to palpation. Extremities no edema Assessment and Plan (1) Enteritis Current visit: Yes Status: Acute Category: Medical Code(s): K52.9 - Noninfective gastroenteritis and colitis, unspecified (2) Weakness Current visit: Yes Status: Acute Category: Medical Code(s): R53.1 - Weakness (3) Acute bronchitis Current visit: Yes Status: Acute Category: Medical Code(s): J20.9 - Acute bronchitis, unspecified (4) Hypertension Current visit: Yes Status: Acute Category: Medical Code(s): I10 - Essential (primary) hypertension (5) Hyperlipidemia Current visit: Yes Status: Acute Category: Medical Code(s): E78.5 - Hyperlipidemia, unspecified (6) Chronic back pain Current visit: Yes Status: Acute Category: Medical Code(s): M54.9 - Dorsalgia, unspecified; G89.29 - Other chronic pain (7) Generalized osteoarthritis Current visit: Yes Status: Acute Category: Medical Code(s): M15.9 - Polyosteoarthritis, unspecified (8) GERD (gastroesophageal reflux disease) Current visit: Yes Status: Acute Category: Medical Code(s): K21.9 - Gastro-esophageal reflux disease without esophagitis - Assessment and plan all Dx Assessment and Plan for all problems:: She was admitted from the emergency room with a diagnosis of right lower lobe pneumonia however this is not evident on her chest x-ray which shows only some possible atelectasis. Furthermore on her CT scan of the abdomen the lung bases are noted to be clear. Her symptoms are consistent with bronchitis which was diagnosed in the office. The main reason for her presentation to the emergency room was her increasing nausea and vomiting and CT scan is consistent with an enteritis. White blood cell count is low consistent with a viral etiology. Her potassium is also noted to be low this morning. She has not been on IV fluids since admission and she will be started on half-normal saline with potassium supplement. Her blood pressure has been elevated since admission. We will add Norvasc today. We will continue on full liquid diet for now. She is encouraged to be up and out of bed.
--- NOTE | 2018-11-17 14:22 | Pharmacy Consult Notes ---
[facility] Pharmacy VTE Monitoring - Patient Demographics Admission date: 11/17/18 Report Date: 11/17/18 Time: 14:21 Allergies/Adverse Reactions: Patient Allergies acetaminophen [From PERCOCET] Allergy (Mild, Verified 11/25/17 13:39) codeine [CODEINE] Allergy (Mild, Verified 11/25/17 13:39) cyclobenzaprine [From Flexeril] Allergy (Mild, Verified 11/25/17 13:42) morphine [MORPHINE] Allergy (Mild, Verified 11/25/17 13:39) oxycodone [From PERCOCET] Allergy (Mild, Verified 11/25/17 13:39) penicillin G [PENICILLIN G] Allergy (Mild, Verified 11/25/17 13:39) loratadine [From CLARITIN] Allergy (Unknown, Verified 11/25/17 13:39) meperidine [From Demerol] Adverse Reaction (Mild, Verified 11/25/17 13:42) Height: 1.68 m Weight: 81.25 kg Patient Problems: Current Active Problems RLL pneumonia (Acute) Enteritis (Acute) Hypernatremia (Acute) Weakness (Acute) Acute bronchitis (Acute) Hypertension (Acute) Hyperlipidemia (Acute) Chronic back pain (Acute) Generalized osteoarthritis (Acute) GERD (gastroesophageal reflux disease) (Acute) - VTE Risk Labs: VTE Related Lab Results Hgb 12.8 g/dL (12.2-16.2) 11/17/18 05:45 Hct 38.1 % (37.0-47.0) 11/17/18 05:45 Plt Count 241 K/mm3 (142-424) 11/17/18 05:45 BUN 9 mg/dL (7-18) 11/17/18 05:45 Creatinine 0.71 mg/dL (0.55-1.02) 11/17/18 05:45 Estimated Creat Clear 61 mL/min (50-200) 11/17/18 05:45 VTE Score: 2 - Prophylaxis Types of VTE Prophylaxis: TEDS Knee High (ROBBY HOSE ORDER PLACED)
[2018-11-18 05:45] LABS: Basophils % 0.4 % (0.1-2.0); Eosinophils % 0.3 % (0.1-12.0); Hematocrit 36.9 % (37.0-47.0); Hemoglobin 12.3 g/dL (12.2-16.2); Lymphocytes # 1.4 K/mm3 (0.7-4.5); Lymphocytes % 44.8 % (10-50); Mean Corpuscular HGB Conc 33.4 g/dL (31.8-35.4); Mean Corpuscular Hemoglobin 31.2 pg (27.0-31.2); Mean Corpuscular Volume 93.5 fl (81-99); Mean Platelet Volume 7.1 fl (7.4-10.4); Monocytes # 0.2 K/mm3 (0.1-1.0); Monocytes % 7.6 % (1.7-9.3); Neutrophils # 1.5 K/mm3 (1.8-7.8); Neutrophils % 46.9 % (37.0-80.0); Platelet Count 215 K/mm3 (142-424); Red Blood Count 3.95 M/mm3 (4.20-5.40); Red Cell Distribution Width 13.5 % (11.5-17.5); White Blood Count 3.2 K/mm3 (4.8-10.8)
[2018-11-18 05:59] LABS: Albumin Level 2.7 gm/dL (3.4-5.0); Albumin/Globulin Ratio 0.8 (1.1-1.8); Anion Gap 13.9 mEq/L (5-15); Bilirubin,Total 0.2 mg/dL (0.2-1.0); Calcium 8.6 mg/dL (8.5-10.1); Globulin 3.3 gm/dl (1.3-3.2); Potassium 3.9 mmoL/L (3.5-5.1)
--- NOTE | 2018-11-18 09:06 | Progress Note ---
Addendum entered and electronically signed by Osvaldo Gomez MD 11/18/18 17:25: She was able to eat and tolerate her lunch. She is stable to be discharge home and continue on her Zithromax she has at home. Will f/u in 10 days. Original Note: <Bernarda Cole - Last Filed: 11/18/18 09:02> Internal Medicine - PN: Subj *Date: 11/18/18 *Time: 09:02 Interval history: Patient was feeling well when she first awakened and wanted to eat. After going to the bathroom she became nauseated and required Zofran. She remains somewhat nauseated but has not vomited. She denies heartburn. She continues with a congested cough. She denies chest pain and shortness of breath. Exam Vital signs and Labs for Last 24 Hours: Temp Pulse Resp BP Pulse Ox 98.4 F 69 16 146/71 H 97 11/18/18 08:00 11/18/18 08:00 11/18/18 08:00 11/18/18 08:00 11/18/18 08:00 Laboratory Results - last 24 hr 11/18/18 05:31: WBC 3.2 L, RBC 3.95 L, Hgb 12.3, Hct 36.9 L, MCV 93.5, MCH 31.2, MCHC 33.4, RDW 13.5, Plt Count 215, MPV 7.1 L, Neut % (Auto) 46.9, Lymph % (Auto) 44.8, Cole % (Auto) 7.6, Eos % (Auto) 0.3, Baso % (Auto) 0.4, Neut # (Auto) 1.5 L, Lymph # (Auto) 1.4, Cole # (Auto) 0.2, Eos # (Auto) 0.0, Baso # (Auto) 0.0 11/18/18 05:31: Sodium 142, Potassium 3.9, Chloride 109 H, Carbon Dioxide 23, Anion Gap 13.9, BUN 7, Creatinine 0.73, Estimated Creat Clear 61, Estimated GFR 78, Est GFR ( Amer) 94, Glucose 117 H D, Calcium 8.6, Total Bilirubin 0.2, AST 23 D, ALT 37 D, Alkaline Phosphatase 138 H, Total Protein 6.0 L, Albumin 2.7 L, Globulin 3.3 H, Albumin/Globulin Ratio 0.8 L I & O for Last 24 hours: Intake & Output 11/15/18 11/16/18 11/17/18 11/18/18 10:59 10:59 11:59 11:59 Intake Total 2809 / 2809 Balance 2809 / 2809 Weight 179 lb 7 oz - Constitutional no acute distress - *Routine Respiratory Exam Present: CTA bilaterally (Anteriorly and posteriorly) - *Routine Cardiovascular Exam Present: RRR - *Routine Abdominal Exam Present: soft, normoactive bowel sounds. Absent: tenderness, distended - *Routine Extremities Exam Absent: edema, calf tenderness Assessment and Plan (1) Enteritis Current visit: Yes Status: Acute Category: Medical Code(s): K52.9 - Noninfective gastroenteritis and colitis, unspecified (2) Weakness Current visit: Yes Status: Acute Category: Medical Code(s): R53.1 - Weakness (3) Acute bronchitis Current visit: Yes Status: Acute Category: Medical Code(s): J20.9 - Acute bronchitis, unspecified (4) Hypertension Current visit: Yes Status: Acute Category: Medical Code(s): I10 - Essential (primary) hypertension (5) Hyperlipidemia Current visit: Yes Status: Acute Category: Medical Code(s): E78.5 - Hyperlipidemia, unspecified (6) Chronic back pain Current visit: Yes Status: Acute Category: Medical Code(s): M54.9 - Dorsalgia, unspecified; G89.29 - Other chronic pain (7) Generalized osteoarthritis Current visit: Yes Status: Acute Category: Medical Code(s): M15.9 - Polyosteoarthritis, unspecified (8) GERD (gastroesophageal reflux disease) Current visit: Yes Status: Acute Category: Medical Code(s): K21.9 - Gastro-esophageal reflux disease without esophagitis - Assessment and plan all Dx Assessment and Plan for all problems:: Need to see how patient feels Later on in the day. Possibly home. <Osvaldo Gomez - Last Filed: 11/18/18 17:25> Exam Vital signs and Labs for Last 24 Hours: Temp Pulse Resp BP Pulse Ox 98.0 F 85 16 146/78 H 95 11/18/18 11:41 11/18/18 13:33 11/18/18 11:41 11/18/18 11:41 11/18/18 11:41 Laboratory Results - last 24 hr 11/18/18 05:31: WBC 3.2 L, RBC 3.95 L, Hgb 12.3, Hct 36.9 L, MCV 93.5, MCH 31.2, MCHC 33.4, RDW 13.5, Plt Count 215, MPV 7.1 L, Neut % (Auto) 46.9, Lymph % (Auto) 44.8, Cole % (Auto) 7.6, Eos % (Auto) 0.3, Baso % (Auto) 0.4, Neut # (Auto) 1.5 L, Lymph # (Auto) 1.4, Cole # (Auto) 0.2, Eos # (Auto) 0.0, Baso # (Auto) 0.0 11/18/18 05:31: Sodium 142, Potassium 3.9, Chloride 109 H, Carbon Dioxide 23, Anion Gap 13.9, BUN 7, Creatinine 0.73, Estimated Creat Clear 61, Estimated GFR 78, Est GFR ( Amer) 94, Glucose 117 H D, Calcium 8.6, Total Bilirubin 0.2 , AST 23 D, ALT 37 D, Alkaline Phosphatase 138 H, Total Protein 6.0 L, Albumin 2.7 L, Globulin 3.3 H, Albumin/Globulin Ratio 0.8 L I & O for Last 24 hours: Intake & Output 11/16/18 11/17/18 11/18/18 11/19/18 10:59 11:59 11:59 11:59 Intake Total 2809 / 2809 Balance 2809 / 2809 Weight 179 lb 7 oz Microbiology Reports for the Last 24 Hours: Microbiology 11/16/18 13:15 Blood Blood Culture - Preliminary NO GROWTH AFTER 48 HOURS 11/16/18 13:15 Blood Blood Culture - Preliminary NO GROWTH AFTER 48 HOURS Assessment and Plan (1) Enteritis Current visit: Yes Status: Acute Category: Medical Code(s): K52.9 - Noninfective gastroenteritis and colitis, unspecified (2) Weakness Current visit: Yes Status: Acute Category: Medical Code(s): R53.1 - Weakness (3) Acute bronchitis Current visit: Yes Status: Acute Category: Medical Code(s): J20.9 - Acute bronchitis, unspecified (4) Hypertension Current visit: Yes Status: Acute Category: Medical Code(s): I10 - Essential (primary) hypertension (5) Hyperlipidemia Current visit: Yes Status: Acute Category: Medical Code(s): E78.5 - Hyperlipidemia, unspecified (6) Chronic back pain Current visit: Yes Status: Acute Category: Medical Code(s): M54.9 - Dorsalgia, unspecified; G89.29 - Other chronic pain (7) Generalized osteoarthritis Current visit: Yes Status: Acute Category: Medical Code(s): M15.9 - Polyosteoarthritis, unspecified (8) GERD (gastroesophageal reflux disease) Current visit: Yes Status: Acute Category: Medical Code(s): K21.9 - Gastro-esophageal reflux disease without esophagitis - Assessment and plan all Dx Assessment and Plan for all problems:: Patient seen and examined this AM. Overall she is feeling better and wants to go home. Will advance diet and if she can eat, may discharge home later today.
--- NOTE | 2018-11-18 22:08 | Discharge Summary ---
General - General Admission date:: 11/16/18 Discharge date: 11/18/18 HPI HPI: This 78-year-old white female was seen by Dr. Gomez in the office on 11/14/2018. At that time she was complaining of scratchy throat and a cough without much sputum production. She is having difficulty sleeping. She complained of headache pressure and aching all over. She was treated with azithromycin. She has continued not to feel well and presented in the emergency room. She was admitted for further evaluation and treatment. She has had a lot of difficulty with back pain and has had back surgeries. She has had episodes of pneumonia. She has had pancreatitis in the past. She had a cholecystectomy in 2012. Hospital Course Hospital Course: The patient was admitted from the emergency room with a diagnosis of right lower lobe pneumonia, however her chest x-ray showed mild bibasilar atelectasis rather than pneumonia. Her symptoms were more consistent with a bronchitis which was diagnosed in the office. Her abdominal CT showed findings suspect of developing enteritis. She had had nausea and vomiting, which was the reason she presented to the emergency room. She continued to complain of nausea but had no vomiting since admission. Zofran seemed to help. She had had no bowel movement for 2 days and had mild mid abdominal discomfort. Her white blood cell count was low consistent with a viral etiology and her potassium was also low. She was started on some IV fluids with potassium supplementation. Her blood pressure was elevated and Norvasc was added. Her diet was advanced and she was able to eat and tolerate her lunch. She was therefore stable to be discharged home and will need to continue on the Zithromax that she had at home for her bronchitis. She will follow-up in the office [facility] in 10 days. Objective Vital signs: Temp Pulse Resp BP Pulse Ox 98.0 F 85 16 146/78 H 95 11/18/18 11:41 11/18/18 13:33 11/18/18 11:41 11/18/18 11:41 11/18/18 11:41 Narrative: - Constitutional mild distress Comments: Says she is feels terrible. She feels weak. - *Routine HEENT Exam Head: Present: normocephalic Eye: Present: PERRL ENT: Present: mucous membranes dry - *Routine Neck Exam Present: supple - Routine Chest/Breast/Axilla Exam Chest wall: Absent: tenderness Comments: Surgical scar of the mid back over the spine. - *Routine Respiratory Exam Present: decreased breath sounds, rales (Fibrotic). Absent: respiratory distress - *Routine Cardiovascular Exam Present: RRR - *Routine Abdominal Exam Present: soft, tenderness (Mild nonspecific) - *Routine Extremities Exam Present: edema (Minimal) - *Routine Skin Exam Present: intact, dry - *Routine Neurological Exam Absent: motor deficit - Routine Psychiatric Exam Present: depressed, anxious Results Labs on day of discharge: Labs from last 24 hours 11/18/18 11/18/18 05:31 05:31 WBC 3.2 L RBC 3.95 L Hgb 12.3 Hct 36.9 L MCV 93.5 MCH 31.2 MCHC 33.4 RDW 13.5 Plt Count 215 MPV 7.1 L Neut % (Auto) 46.9 Lymph % (Auto) 44.8 Sharp % (Auto) 7.6 Eos % (Auto) 0.3 Baso % (Auto) 0.4 Neut # (Auto) 1.5 L Lymph # (Auto) 1.4 Sharp # (Auto) 0.2 Eos # (Auto) 0.0 Baso # (Auto) 0.0 Sodium 142 Potassium 3.9 Chloride 109 H Carbon Dioxide 23 Anion Gap 13.9 BUN 7 Creatinine 0.73 Estimated Creat Clear 61 Estimated GFR 78 Est GFR ( Amer) 94 Glucose 117 H D Calcium 8.6 Total Bilirubin 0.2 AST 23 D ALT 37 D Alkaline Phosphatase 138 H Total Protein 6.0 L Albumin 2.7 L Globulin 3.3 H Albumin/Globulin Ratio 0.8 L Preliminary micro results at discharge 11/16/18 13:15 Blood Culture - Preliminary Blood NO GROWTH AFTER 48 HOURS 11/16/18 13:15 Blood Culture - Preliminary Blood NO GROWTH AFTER 48 HOURS DS: Diagnosis - Discharge Diagnosis (1) Enteritis Status: Acute (2) Weakness Status: Acute (3) Acute bronchitis Status: Acute (4) Hypertension Status: Acute (5) Hyperlipidemia Status: Acute (6) Chronic back pain Status: Acute (7) Generalized osteoarthritis Status: Acute (8) GERD (gastroesophageal reflux disease) Status: Acute Discharge Plan - Patient Discharge Instructions ACTIVITY: Continue current activity DIET: continue same diet Patient Instructions: DI for Pneumonia -- Adult - Follow up Plan Follow up with: Osvaldo Gomez MD [Primary Care Provider] - 11/28/18 (already has appt in [facility]) Disposition: Home, Self-Assisted Medications: Home Medications Medication Instructions Recorded Confirmed Type atorvastatin 20 mg tablet 20 mg PO DAILY tab 03/19/18 11/16/18 History cholecalciferol (vitamin D3) 2,000 2,000 unit PO DAILY cap 03/19/18 11/16/18 History unit capsule diclofenac sodium 75 mg 75 mg PO BID 03/19/18 11/16/18 History tablet,delayed release furosemide 40 mg tablet 40 mg PO DAILY tab 03/19/18 11/16/18 History glucosamine HCl 1,500 mg tablet 1,500 mg PO BID tab 03/19/18 11/16/18 History multivitamin tablet 1 tab PO QAM 03/19/18 11/16/18 History omega-3 fatty acids 1,000 mg 1,000 mg PO BID cap 03/19/18 11/16/18 History capsule vitamin B complex tablet 1 tab PO DAILY tab 03/19/18 11/16/18 History Gabapentin 600 mg PO TID 11/16/18 11/16/18 History Pantoprazole Sodium [Protonix 40mg 40 mg PO DAILY 11/16/18 11/16/18 History tablet] Tramadol HCl [Tramadol 50mg 50 mg PO Q6 PRN 11/16/18 11/16/18 History Tab] Fexofenadine HCl 180 mg PO DAILY 11/17/18 11/17/18 History Meloxicam 7.5 mg PO BID 11/17/18 11/17/18 History Ondansetron HCl [Zofran 4mg Tab] 4 mg PO Q8HP PRN #15 tab 11/18/18 Rx Prescriptions/Medication Reconciliation: New Ondansetron HCl [Zofran 4mg Tab] 4 mg PO Q8HP PRN #15 tab PRN Reason: Nausea Continue furosemide 40 mg tablet 40 mg PO DAILY tab atorvastatin 20 mg tablet 20 mg PO DAILY tab glucosamine HCl 1,500 mg tablet 1,500 mg PO BID tab omega-3 fatty acids 1,000 mg capsule 1,000 mg PO BID cap multivitamin tablet 1 tab PO QAM cholecalciferol (vitamin D3) 2,000 unit capsule 2,000 unit PO DAILY cap diclofenac sodium 75 mg tablet,delayed release 75 mg PO BID vitamin B complex tablet 1 tab PO DAILY tab Tramadol HCl [Tramadol 50mg Tab] 50 mg PO Q6 PRN PRN Reason: Moderate Pain Meloxicam 7.5 mg PO BID Gabapentin 600 mg PO TID Pantoprazole Sodium [Protonix 40mg tablet] 40 mg PO DAILY Fexofenadine HCl 180 mg PO DAILY
== END 2018-11-18 17:53 | disposition home or self-care (01) ==
LOC: ER 12:53 → 2ND 12:53
PROVIDERS: ADMIT Family Medicine; ATTEND Family Medicine
DX: M54.9 Dorsalgia, unspecified; R51 Headache; Z88.8 Allergy status to other drugs, medicaments and biological substances; J18.9 Pneumonia, unspecified organism; M15.9 Polyosteoarthritis, unspecified; R53.1 Weakness; R01.1 Cardiac murmur, unspecified; R11.10 Vomiting, unspecified; R11.0 Nausea; E78.5 Hyperlipidemia, unspecified; Z91.010 Allergy to peanuts; K21.9 Gastro-esophageal reflux disease without esophagitis; Z79.899 Other long term (current) drug therapy; J20.9 Acute bronchitis, unspecified; E87.0 Hyperosmolality and hypernatremia; Z88.6 Allergy status to analgesic agent; I10 Essential (primary) hypertension; K52.9 Noninfective gastroenteritis and colitis, unspecified; Z87.19 Personal history of other diseases of the digestive system
CPT/HCPCS: 36415; 71020; 71046; 74176; 80048; 80053; 82607; 83605; 84443; 84484; 85025; 87040; 93005; 94640; 94761; 96365; 96375; 99284; G0378; J1956; J2405

== ENCOUNTER → 2019-02-04 09:48 | Outpatient (CLI) | payer MEDICARE, MEDICAID, SELFPAY ==
--- NOTE | 2019-02-04 09:49 | XR_ITS ---
XR DEXA axial skeleton HISTORY: ITS.REASON: OSTEOPENIA ORDERING PHYSICIAN: Osvaldo Gomez MD PATIENT AGE: 78 years COMPARISON: 01/29/2017 FINDINGS: The BMD measured at the Right femoral neck is 0.863 g/cm squared with a T score of -1.3. This is considered Osteopenic according to the World Health Organization criteria. Fracture risk is Moderate. Treatment is advised. The hip density has decreased by 1.7% IMPRESSION: Osteopenia with moderate fracture risk. Treatment is advised. Suggest follow-up exam January 2021
== END ==
PROVIDERS: PCP Family Medicine; Visit Provider Family Medicine
DX: M85.89 Other specified disorders of bone density and structure, multiple sites (principal)
CPT/HCPCS: 77080

== ENCOUNTER → 2019-03-19 12:25 | Outpatient (CLI) | payer MEDICARE, MEDICAID, SELFPAY ==
--- NOTE | 2019-03-19 12:39 | IR_ITS ---
CT lumbar spine w con, IR myelogram spine lumbosacral INDICATION: Low back pain, right hip pain, extensive prior surgery of the lumbar spine. ITS.REASON: MYELOGRAM ORDERING PHYSICIAN: [place] PATIENT AGE: 78 years COMPARISON: None Myelogram technique: After timeout procedure performed and following obtaining informed consent under aseptic conditions and local anesthesia with 1% buffered lidocaine, a 22-gauge spinal needle was inserted into the thecal sac under fluoroscopic guidance at the L3-L4 level. Clear CSF was noted. Approximately 12 mL's of water-soluble contrast was injected, needle removed, and images obtained. The patient tolerated the procedure well without evidence of immediate complications. Following this, the patient was taken to the CT suite where post myelographic images were obtained from T12 to S1. TECHNIQUE: Axial images obtained with sagittal and coronal reformats. All CT scans at the facility use one or more dose reduction, viz: automated exposure control, ma/kV adjustment per patient size (including targeted exams where dose is matched to indication, i.e. head), or iterative reconstruction technique. FINDINGS: There are extensive postsurgical changes of the lumbar spine. Interpedicular screws with connecting rods are present from L1 to the upper sacrum stabilizing a moderate lumbar scoliosis convex left. T7-T8: Degenerative disc disease with osteosclerosis of the endplates. Artifact is present from an a neurostimulator device. T8-T9: Degenerative disc disease T9-T10: Unremarkable. T10-T11: Moderate facet and ligamentum flavum hypertrophic changes with moderate bilateral lateral recess narrowing. T11-T12: Unremarkable. T12-L1: There is prominent extradural soft tissue density in the left paracentral and left foraminal region at T12-L1 which may be due to a prominent disc protrusion. Just inferior to this region there is also prominent anterior and right paracentral soft tissue density which extends inferiorly and may represent a extruded herniated disc. This is contiguous with the disc space at T12-L1. There is some mild deformity of the left aspect of the cord at T12-L1. There are interpedicular screws at L1. L1-L2: Interpedicular screws present on the left at L2. There is right lateral recess narrowing from bony hypertrophy of the facets and ligamentum flavum. L2-L3: And interpedicular screws present on the right somewhat lateral to the pedicle at L3 pedicle. Laminotomy changes are noted at L3. L3-L4: There are bilateral interpedicular screws at L4. Postlaminectomy changes are noted. There is 1. Centimeters left lateral translation of L3 on L4 with resultant leftward angulation of the thecal sac at this region. There is some impingement upon the right lateral nerve roots from the acute angle. L4-5: Degenerative disc disease with mild anterolisthesis of L4. Post laminectomy changes. L4-L5: Postlaminectomy with interpedicular screws at L5 and within the upper sacrum on both sides. IMPRESSION: Extensive postsurgical changes with degenerative change as described above. Please see above for detailed description at each level.
--- NOTE | 2019-03-19 13:41 | XR_ITS ---
EXAM: XR lumbar spine min 4V HISTORY: ITS.REASON: LOW BACK PAIN, RT HIP PAIN ORDERING PHYSICIAN: [place] PATIENT AGE: 78 years COMPARISON: None FINDINGS: There are no previous exams available for comparison. There are extensive postsurgical changes and degenerative changes. Interpedicular screws are present from L1 S1 with connecting carlos its width screws also noted within each side of the sacrum. There is moderate lumbar scoliosis convex left. There is left lateral translation of L3 on L4 of 2 cm. Multilevel degenerative disc disease is present from T12 to S1. Neurostimulator device is present. Prior laminectomy at L3-L4 and L5. IMPRESSION: Postsurgical changes with severe degenerative disc disease and lumbar scoliosis as described above.
--- NOTE | 2019-03-19 17:46 | PC.NURSE ---
Patient arrived to floor, oriented to room. Patient is sitting up in bed, call light within reach, will continue to monitor.
== END ==
PROVIDERS: PCP Family Medicine; Visit Provider Orthopaedic Surgery
DX: M54.5 Low back pain (principal)
CPT/HCPCS: 62304; 72110; 72132; Q9966

== ENCOUNTER → 2019-05-19 16:19 | Outpatient (CLI) | payer MEDICARE, MEDICAID, SELFPAY ==
--- NOTE | 2019-05-19 | MM_ITS ---
PROCEDURE: MM DIG SCREENING MAMM BI W/CAD CLINICAL INDICATION: There is no personal or family history of breast cancer COMPARISON: [facility] DIG MAMM-SCREEN GAYLE W/CAD from 01/29/2017 [facility] DIG MAMM-DX UNI LT W/AVS W/CAD from 02/09/2017 [facility] MM Dig screening mamm BI w/CAD from 03/11/2018 TECHNIQUE: Standard CC and MLO images were obtained. R2 CAD reviewed. FINDINGS: Scattered fibroglandular densities are seen throughout both breasts. There is moderate arterial calcification in both breasts. A couple benign-appearing macrocalcifications right breast. There is no suspicious lesion and no suspicious microcalcifications. IMPRESSION: Fibrofatty parenchyma with no suspicious lesions seen BI-RAD Category: 1 Negative FOLLOW-UP: 1YR 1 Year Follow-up (A letter has been sent to the patient regarding results of the study.) Dictated by: Dr. Gino Bloom MD 05/25/2019 16:[address] Gino Bloom MD in [place] 05/25/2019 16:15
== END ==
PROVIDERS: PCP Family Medicine; Visit Provider Family Medicine
DX: Z12.31 Encounter for screening mammogram for malignant neoplasm of breast (principal)
CPT/HCPCS: 77067

== ENCOUNTER 2019-06-08 20:12 | Observation (INO) ==
[2019-06-08 20:36] LABS: Basophils % 0.1 % (0.1-2.0); Eosinophils % 0.5 % (0.1-12.0); Hematocrit 41.5 % (37.0-47.0); Hemoglobin 12.9 g/dL (12.2-16.2); Lymphocytes # 1.7 K/mm3 (0.7-4.5); Lymphocytes % 23.8 % (10-50); Mean Corpuscular HGB Conc 31.1 g/dL (31.8-35.4); Mean Corpuscular Volume 95.9 fl (81-99); Mean Platelet Volume 7.3 fl (7.4-10.4); Monocytes # 0.3 K/mm3 (0.1-1.0); Monocytes % 4.6 % (1.7-9.3); Platelet Count 310 K/mm3 (142-424); Red Blood Count 4.33 M/mm3 (4.20-5.40); Red Cell Distribution Width 14.3 % (11.5-17.5); White Blood Count 7.1 K/mm3 (4.8-10.8)
[2019-06-08 20:41] LABS: Microscopic, Urine URINE MICROSCOPIC (MICROSCOPIC)
--- NOTE | 2019-06-08 20:47 | Emergency Department Note ---
ED Disposition Clinical Impression: Hypokalemia CAP (community acquired pneumonia) Qualifiers: Laterality: right Lung location: lower lobe of lung Qualified Code(s): J18.1 - Lobar pneumonia, unspecified organism Disposition: Admitted as Observation Condition on Discharge: Good Referrals: Provider,Referral, [Referring] - - Critical Care Critical Care Time: No Attestation: On 06/08/19, the high probability of a clinically significant, sudden or life threatening deterioration of the following system(s) required my full and direct attention, intervention and personal management. The time I documented below is in addition to time spent performing reported procedures but includes the following listed in this critical care notation. Medical Decision Making - Medical Records Medical records reviewed: Yes: I reviewed the patient's medical records. - [place]kin Inquiry Pt receiving controlled substance: No Vital Signs: 06/08/19 20:13 06/08/19 21:22 06/08/19 22:38 Temperature 98 F Temperature Source Oral Pulse Rate [Right] 77 78 80 Respiratory Rate 18 18 16 Blood Pressure [Right Arm] 207/98 H 187/110 H 172/82 H Blood Pressure Mean [Right Arm] 134 135 112 02 Sat by Pulse Oximetry 95 98 93 L Oxygen Delivery Method Room Air Room Air - Lab Data Lab results reviewed: Yes: I reviewed the patient's lab results. Lab Results 06/08/19 20:24: WBC 7.1, RBC 4.33, Hgb 12.9, Hct 41.5, MCV 95.9, MCH 29.9, MCHC 31.1 L, RDW 14.3, Plt Count 310, MPV 7.3 L, Neut % (Auto) 71.0, Lymph % (Auto) 23.8, [place] % (Auto) 4.6, Eos % (Auto) 0.5, Baso % (Auto) 0.1, Neut # (Auto) 5.0, Lymph # (Auto) 1.7, [place] # (Auto) 0.3, Eos # (Auto) 0.0, Baso # (Auto) 0.0, ESR 76 H 06/08/19 20:24: Sodium 144, Potassium 3.1 L, Chloride 106, Carbon Dioxide 29, Anion Gap 12.1, BUN 8, Creatinine 0.82, Estimated Creat Clear 55, Estimated GFR 68, Est GFR ( Amer) 82, Glucose 108 H, Calcium 9.2, Total Bilirubin 0.4, AST 19, ALT 13, Alkaline Phosphatase 117 H, Troponin I < 0.02, C-Reactive Protein 0.9, Total Protein 7.2, Albumin 3.4, Globulin 3.8 H, Albumin/Globulin Ratio 0.9 L, Amylase 18 L, Lipase 60 L 06/08/19 20:24: Lactate 0.5 06/08/19 20:24: Influenza Type A Ag Negative, Influenza Type B Ag Negative 06/08/19 20:25: Urine Color Yellow, Urine Appearance Clear, Urine pH 8.5, Ur Specific [place] 1.010, Urine Protein Negative, Urine Glucose (UA) Negative, Urine Ketones Negative, Urine Blood Negative, Urine Nitrate Negative, Urine Bilirubin Negative, Urine Urobilinogen 0.2, Ur Leukocyte Esterase Negative, Urine WBC Occasional, Ur Squamous Epith Cells Occasional, Urine Bacteria Trace Result diagrams: 06/08/19 20:24 06/08/19 20:24 Orders (Tests/Meds): ED MEDICATIONS Generic Name Dose Route Start Last Admin Trade Name Freq PRN Reason Stop Dose Admin Sodium Chloride 1,000 mls @ 999 mls/hr 06/08/19 20:30 06/08/19 20:32 Sod Chlor 0.9% 1000ml Bag IV 06/08/19 21:30 999 mls/hr .Q1H1M NANDO Administration Discontinued Medications Generic Name Dose Route Start Last Admin Trade Name Freq PRN Reason Stop Dose Admin Ondansetron HCl 4 mg 06/08/19 20:30 06/08/19 20:32 Zofran 4mg/2ml Vial IV 06/08/19 20:31 4 mg ONCE ONE Administration Promethazine HCl 6.25 mg 06/08/19 22:09 06/08/19 22:26 Phenergan 25mg/Ml 1ml Vial IV 06/08/19 22:10 6.25 mg ONCE ONE Administration Sodium Chloride 25 ml 06/08/19 22:09 06/08/19 22:26 Sod Chlor 0.9% 25ml Bag IV 06/08/19 22:10 25 ml ONCE ONE Administration ORDERS Category Date Time Status CT abdomen pelvis w con Stat Cat Scan 06/08/19 20:[address] head/brain wo con Stat Cat Scan 06/08/19 20:16 Taken XR chest 2V Stat Exams 06/08/19 20:16 Taken Blood Culture Stat Micro 06/08/19 20:24 Received ECG Request by /Ayah Stat Y 06/08/19 20:16 Ordered - Radiology Data #1 Image(s): Chest Image Reviewed: Yes I reviewed the patient's radiology image Preliminary Findings: Abnormal (possible early changes rt base ) - CT Data CT Scan: Head, Abdomen, Pelvis Time Received: 22:[address] Reviewed: Yes: I have viewed the radiologist's interpretation Preliminary Findings: Abnormal Findings Narrative: see report - ECG Data Tracing #1 I reviewed this ECG and interpreted as documented below: Normal Sinus Rhythm: Yes Ischemic changes: non-specific ST-T wave changes - Physician Consults Physician Consulted: daya Reason -: Admission Weakness HPI - General Chief complaint: Weakness Stated complaint: weakness, n/v Time Seen by Provider: 06/08/19 20:20 Mode of Arrival: Wheelchair Source of Information: Patient, Relative, Medical Record Limitations: No Limitations Description of Symptoms (Recalled from ER Triage Doc. by RN): Pt states this morning she began to be very nauseated and weak. Pt states she has had stomach cramps on and off. Pt granddaughter said she has been very lethargic. - History of Present Illness HPI Narrative: pt with reported prod cough yellow sputum with weakness and dec po intake - pt with no chest pain - pt with dec po intake - nausea and vomiting MD Complaint: generalized weakness Onset (ago): day(s) Duration: constant Migration: none Severity: moderate Associated symptoms: fever/chills, loss of appetite, nausea/vomiting - Related Data Home Medications Medication Instructions Recorded Confirmed atorvastatin 20 mg tablet 20 mg PO DAILY tab 03/19/18 06/08/19 cholecalciferol (vitamin D3) 2,000 2,000 unit PO DAILY cap 03/19/18 06/08/19 unit capsule diclofenac sodium 75 mg 75 mg PO BID 03/19/18 06/08/19 tablet,delayed release furosemide 40 mg tablet 40 mg PO DAILY tab 03/19/18 06/08/19 glucosamine HCl 1,500 mg tablet 1,500 mg PO BID tab 03/19/18 06/08/19 multivitamin tablet 1 tab PO QAM 03/19/18 06/08/19 omega-3 fatty acids 1,000 mg 1,000 mg PO BID cap 03/19/18 06/08/19 capsule vitamin B complex tablet 1 tab PO DAILY tab 03/19/18 06/08/19 Gabapentin 600 mg PO TID 11/16/18 06/08/19 Pantoprazole Sodium [Protonix 40mg 40 mg PO DAILY 11/16/18 06/08/19 tablet] Tramadol HCl [Tramadol 50mg 50 mg PO Q6 PRN 11/16/18 06/08/19 Tab] Fexofenadine HCl 180 mg PO DAILY 11/17/18 06/08/19 Meloxicam 7.5 mg PO BID 11/17/18 06/08/19 cloNIDine HCl [cloNIDine 0.2mg 0.2 mg PO NEEDED PRN 06/08/19 06/08/19 Tablet] Allergies Allergy/AdvReac Type Severity Reaction Status Date / Time acetaminophen [From PERCOCET] Allergy Mild Verified 11/25/17 13:39 codeine [CODEINE] Allergy Mild Verified 11/25/17 13:39 cyclobenzaprine Allergy Mild Verified 11/25/17 13:42 [From Flexeril] morphine [MORPHINE] Allergy Mild Verified 11/25/17 13:39 oxycodone [From PERCOCET] Allergy Mild Verified 11/25/17 13:39 penicillin G [PENICILLIN G] Allergy Mild Verified 11/25/17 13:39 loratadine [From CLARITIN] Allergy Unknown Verified 11/25/17 13:39 meperidine [From Demerol] AdvReac Mild Verified 11/25/17 13:42 [facility] History - Hepatitis A Screen Drug use history?: No High risk sexual behaviors?: No History of sexually transmitted infection?: No Currently employed?: No Childcare worker?: No Do you have indoor plumbing?: Yes Do you have electricity?: Yes Attestation statement:: This patient has been screened for Hepatitis A risk factors. I have reviewed the patient's past medical history: Yes Medical History: Reports:: Gastroesophageal Reflux Disease(GERD), Heart Murmur, Hyperlipidemia Denies:: Cancer, Diabetes Mellitus Type 1, Diabetes Mellitus Type 2, MRSA Other Medical History: Reports: Liver Disease Laterality Cases: Right: Carpal Tunnel Release, Bilateral: Arthroscopy Knee Other Surgeries: Yes: Hysterectomy-Total, Skin Cancer Excision, Other (Back Sx, Foot Sx) Amputation: No Fractures: Yes (RIGHT WRIST) - Social History Smoking Status: Never smoker Alcohol Intake: never Alcohol Intake Frequency:: other Substance Use Type: denies use Occupational Status: other Housing: house Household Members: children Family Hx:: Coronary Artery Disease, Heart Attack ROS Obtained: Yes All systems reviewed & no additional complaints - Constitutional Constitutional: Denies fever(s), Reports weakness - Eyes Eyes: Denies change in vision - ENT Ears, Nose, Mouth, and Throat: Denies sore throat - Cardiovascular Cardiovascular: Denies chest pain - Respiratory Respiratory: Yes as per HPI, Yes change in phlegm color, Yes cough, No coughing up blood - Gastrointestinal Gastrointestingal: Reports: as per HPI, abdominal pain, nausea, vomiting. Denies: diarrhea, black, tarry stools - Genitourinary Female Genitourinary: Denies hematuria - Musculoskeletal Musculoskeletal: Denies joint pain - Integumentary/Breasts Skin/Breast: Denies rash - Neurologic Neurologic: Denies seizure-like activity Physical Exam - General General appearance: alert - Head Head exam: normocephalic - Eye Eye exam: Present: PERRL, EOMI. Absent: scleral icterus - ENT ENT exam: Present: mucous membranes dry - Neck Neck exam: Present: trachea midline - Respiratory Respiratory exam: Present: normal lung sounds bilaterally. Absent: respiratory distress - Cardiovascular Cardiovascular exam: Present: regular rate, systolic murmur, +S4 - Abdominal Exam Abdominal exam: Present: soft, tenderness Abdominal tenderness: Present: epigastrium, moderate - Extremities Exam Extremities exam: Present: full ROM. Absent: pedal edema - Neurological Exam Neurological exam: Present: alert, oriented X3, CN II-XII intact. Absent: motor sensory deficit - Psychiatric Psychiatric exam: Present: normal affect - Skin Skin exam: Absent: rash
[2019-06-08 20:49] LABS: Appearance,Urine CLEAR (Clear); Bilirubin,Urine Negative (Negative); Blood, Urine Negative (Negative); Color,Urine YELLOW (Yellow); Glucose,Urine (UA) Negative (Negative); Ketones,Urine Negative (Negative); Leukocyte Esterase,Urine Negative (Negative); PH,Urine 8.5 (5.0-8.5); Protein,Urine Negative (Negative); Urobilinogen,Urine 0.2 EU/dl (0.2)
[2019-06-08 20:58] LABS: Alanine Aminotransferase 13 U/L (12-78); Albumin Level 3.4 gm/dL (3.4-5.0); Albumin/Globulin Ratio 0.9 (1.1-1.8); Alkaline Phosphatase 117 U/L (46-116); Amylase 18 U/L (25-115); Anion Gap 12.1 mEq/L (5-15); Aspartate Amino Transferase 19 U/L (15-37); Bilirubin,Total 0.4 mg/dL (0.2-1.0); Blood Urea Nitrogen 8 mg/dL (7-18); C-Reactive Protein 0.9 mg/dL (0.0-0.9); Calcium 9.2 mg/dL (8.5-10.1); Carbon Dioxide 29 mmol/L (21.0-32.0); Chloride 106 mmol/L (98-107); Globulin 3.8 gm/dl (1.3-3.2); Glucose 108 mg/dL (74-106); Sodium 144 mmol/L (136-145); Total Protein,Serum 7.2 gm/dL (6.4-8.2)
[2019-06-08 20:58] LABS: Bacteria,Urine Trace /lpf; Squamous Epithelial Cell,Urine Occasional #/hpf (0-5); WBC,Urine Occasional #/hpf (0-3)
[2019-06-08 21:49] LABS: Erythrocyte Sedimentation Rate 76 mm/hr (0-30)
[2019-06-09 07:03] LABS: Basophils % 0.3 % (0.1-2.0); Eosinophils % 0.5 % (0.1-12.0); Hematocrit 39.8 % (37.0-47.0); Lymphocytes # 1.8 K/mm3 (0.7-4.5); Mean Corpuscular HGB Conc 30.2 g/dL (31.8-35.4); Mean Corpuscular Volume 96.9 fl (81-99); Mean Platelet Volume 7.3 fl (7.4-10.4); Monocytes # 0.3 K/mm3 (0.1-1.0); Monocytes % 4.4 % (1.7-9.3); Neutrophils # 4.4 K/mm3 (1.8-7.8); Neutrophils % 66.8 % (37.0-80.0); Platelet Count 279 K/mm3 (142-424); Red Cell Distribution Width 14.5 % (11.5-17.5); White Blood Count 6.5 K/mm3 (4.8-10.8)
[2019-06-09 07:09] LABS: Calcium 8.8 mg/dL (8.5-10.1)
--- NOTE | 2019-06-09 07:35 | Pharmacy Consult Notes ---
[facility] VTE Monitoring - Patient Demographics Admission date: 06/08/19 Report Date: 06/09/19 Time: 07:35 Allergies/Adverse Reactions: Patient Allergies acetaminophen [From PERCOCET] Allergy (Mild, Verified 11/25/17 13:39) codeine [CODEINE] Allergy (Mild, Verified 11/25/17 13:39) cyclobenzaprine [From Flexeril] Allergy (Mild, Verified 11/25/17 13:42) morphine [MORPHINE] Allergy (Mild, Verified 11/25/17 13:39) oxycodone [From PERCOCET] Allergy (Mild, Verified 11/25/17 13:39) penicillin G [PENICILLIN G] Allergy (Mild, Verified 11/25/17 13:39) loratadine [From CLARITIN] Allergy (Unknown, Verified 11/25/17 13:39) meperidine [From Demerol] Adverse Reaction (Mild, Verified 11/25/17 13:42) Height: 1.65 m Weight: 74.928 kg Patient Problems: Current Active Problems CAP (community acquired pneumonia) (Acute) Hypokalemia (Acute) - VTE Risk Labs: VTE Related Lab Results Hgb 12.0 g/dL (12.2-16.2) L 06/09/19 06:20 Hct 39.8 % (37.0-47.0) 06/09/19 06:20 Plt Count 279 K/mm3 (142-424) 06/09/19 06:20 BUN 6 mg/dL (7-18) L 06/09/19 06:20 Creatinine 0.75 mg/dL (0.55-1.02) 06/09/19 06:20 Estimated Creat Clear 57 mL/min (50-200) 06/09/19 06:20 Was VTE Risk Assessment Performed: Yes VTE Score: 4 VTE Risk Level: Low Risk - Prophylaxis VTE Prophylaxis Ordered?: Yes Types of VTE Prophylaxis: TEDS Knee High Location of Applied Device: Bilateral Lower Extremeties - VTE Diagnosis Confirmed Treatment or plan recommended: Continue Current Treatment
--- NOTE | 2019-06-09 09:19 | Electrocardiograph Report ---
APPROVED REPORT Exam: Resting ECG HR:73 bpm ECG Measurements Heart Rate 73 AXES LA 168 P 72 QRSd 88 QRS -30 QT 412 T-11 QTc 453 <Conclusion> Normal sinus rhythm,Motion Artifact Left axis deviation Incomplete RBBB Abnormal ECG Electronically signed by : José Antonio Parra, 06/09/2019 09:19:39
--- NOTE | 2019-06-09 09:32 | History & Physical Report ---
*Admission Date: 06/08/19 <KelseyBernarda 06/09/19 09:41> *Chief complaint: Nausea and vomiting <Bernarda Cole 06/09/19 09:41> *History of present illness: Ms. Roberts is a 78-year-old female patient of Dr. Mon with a history of hypertension, allergic rhinitis, hyperlipidemia, cervical radiculopathy, GERD, osteoarthritis, and chronic pain syndrome who presented to the emergency room last evening with nausea and vomiting. She states she awakened yesterday morning and felt poorly and then began with the nausea and vomitin She was able to retain Sprite yesterday but was unable to eat and did not take her medicines. She also describes having a headache. She denies having chest pain, shortness of breath, cough, and any upper respiratory symptoms. Her family made her come to the emergency room. This a.m. she continues to feel nauseated and does not know if she can eat her breakfast. She actually feels miserable. She continues with a headache. She did not sleep. She denies chest pain and shortness of breath and cough. <Bernarda Cole 06/09/19 09:41> [facility] History Medical History: Reports:: Gastroesophageal Reflux Disease(GERD), Heart Murmur, Hyperlipidemia, Hypertension Denies:: Cancer, Diabetes Mellitus Type 1, Diabetes Mellitus Type 2, MRSA <Bernarda Cole 06/09/19 09:41> *Have you ever received a pneumonia vaccine?: Yes <Bernarda Cole 06/09/19 09:41> *Have you received a flu vaccine this season?: No <Bernarda Cole 06/09/19 09:41> Other Medical History: Reports: Arthritis, Liver Disease <Bernarda Cole 06/09/19 09:41> Comment:: Chronic pain; allergic rhinitis <Bernarda Cole 06/09/19 09:41> Laterality Cases: Right: Carpal Tunnel Release, Bilateral: Arthroscopy Knee, Total Knee Replacement <Bernarda Cole 06/09/19 09:41> Other Surgeries: Yes: Cholecystectomy, Hysterectomy-Total, Skin Cancer Excision, Other (Back Sx, Foot Sx) <Bernarda Cole 06/09/19 09:41> Amputation: No <KelseyBernarda 06/09/19 09:41> Fractures: Yes (RIGHT WRIST) <ColeBernarda 06/09/19 09:41> Comment: Back and right hand surgery <ColeBernarda 06/09/19 09:41> - *Social History Educational Level: Attended High School <Cole,Bernarda 06/09/19 09:41> Smoking Status: Never smoker <Cole,Bernarda 06/09/19 09:41> Alcohol Intake: never <ColeBernarda 06/09/19 09:41> Alcohol Intake Frequency:: other <Cole,Bernarda 06/09/19 09:41> Substance Use Type: denies use <ColeBernarda 06/09/19 09:41> *Occupational Status:: other <ColeBernarda 06/09/19 09:41> Housing: house <ColeBernarda 06/09/19 09:41> Household Members: children <ColeBernarda 06/09/19 09:41> *Travel in the last 8 weeks: None <ColeBernarda 06/09/19 09:41> Family Hx:: Coronary Artery Disease, Heart Attack <Cole,Bernarda 06/09/19 09:41> Review of Systems - Constitutional Reports chills, Reports headache(s), Reports weakness <ColeBernarda 06/09/19 09:41> - ENT Denies ear pain, Denies sore throat <KelseyBernarda 06/09/19 09:41> - *Cardiovascular Denies chest pain, Denies shortness of breath <Cole,Bernarda 06/09/19 09:41> - *Respiratory Denies chest congestion, Denies cough, Denies shortness of breath <KelseyBernarda 06/09/19 09:41> - *Gastrointestinal Reports nausea, Reports other, Denies abdominal pain, Denies change in stools, Denies coffee ground vomit, Denies constipation, Denies loose stools, Denies heartburn, Denies vomiting blood, Denies loose stools, Denies black, tarry stools <KelseyBernarda 06/09/19 09:41> - *Genitourinary Denies difficulty urinating, Denies painful urination <Bernarda Cole - 06/09/19 09:41> - *Musculoskeletal Reports abnormal walking, Reports joint pain, Reports back pain <Bernarda Cole - 06/09/19 09:41> - *Neurologic Reports dizziness, Reports headache(s), Reports weakness, Denies seizure-like activity <Bernarda Cole - 06/09/19 09:41> Meds Home Medications Medication Instructions Recorded Confirmed Type atorvastatin 20 mg tablet 20 mg PO DAILY tab 03/19/18 06/08/19 History cholecalciferol (vitamin D3) 2,000 2,000 unit PO DAILY cap 03/19/18 06/08/19 History unit capsule diclofenac sodium 75 mg 75 mg PO BID 03/19/18 06/08/19 History tablet,delayed release furosemide 40 mg tablet 40 mg PO DAILY tab 03/19/18 06/08/19 History glucosamine HCl 1,500 mg tablet 1,500 mg PO BID tab 03/19/18 06/08/19 History multivitamin tablet 1 tab PO DAILY 03/19/18 06/09/19 History omega-3 fatty acids 1,000 mg 1,000 mg PO BID cap 03/19/18 06/08/19 History capsule vitamin B complex tablet 1 tab PO DAILY tab 03/19/18 06/08/19 History Gabapentin 600 mg PO TID 11/16/18 06/08/19 History Pantoprazole Sodium [Protonix 40mg 40 mg PO DAILY 11/16/18 06/08/19 History tablet] Tramadol HCl [Tramadol 50mg 50 mg PO Q6HP PRN 11/16/18 06/09/19 History Tab] Fexofenadine HCl 180 mg PO DAILY 11/17/18 06/08/19 History Meloxicam 7.5 mg PO BID 11/17/18 06/08/19 History cloNIDine HCl [cloNIDine 0.2mg 0.2 mg PO BID 06/08/19 06/09/19 History Tablet] <Osvaldo Gomez - 06/09/19 16:24> Allergies Allergy/AdvReac Type Severity Reaction Status Date / Time acetaminophen [From PERCOCET] Allergy Mild Verified 11/25/17 13:39 codeine [CODEINE] Allergy Mild Verified 11/25/17 13:39 cyclobenzaprine Allergy Mild Verified 11/25/17 13:42 [From Flexeril] morphine [MORPHINE] Allergy Mild Verified 11/25/17 13:39 oxycodone [From PERCOCET] Allergy Mild Verified 11/25/17 13:39 penicillin G [PENICILLIN G] Allergy Mild Verified 11/25/17 13:39 loratadine [From CLARITIN] Allergy Unknown Verified 11/25/17 13:39 meperidine [From Demerol] AdvReac Mild Verified 11/25/17 13:42 <Osvaldo Gomez - 06/09/19 16:24> Exam Vital signs and Labs for Last 24 Hours: Temp Pulse Resp BP Pulse Ox 98.8 F 73 17 173/73 H 93 L 06/09/19 12:00 06/09/19 12:00 06/09/19 12:00 06/09/19 12:00 06/09/19 12:00 Laboratory Results - last 24 hr 06/08/19 20:24: WBC 7.1, RBC 4.33, Hgb 12.9, Hct 41.5, MCV 95.9, MCH 29.9, MCHC 31.1 L, RDW 14.3, Plt Count 310, MPV 7.3 L, Neut % (Auto) 71.0, Lymph % (Auto) 23.8, [place] % (Auto) 4.6, Eos % (Auto) 0.5, Baso % (Auto) 0.1, Neut # (Auto) 5.0, Lymph # (Auto) 1.7, [place] # (Auto) 0.3, Eos # (Auto) 0.0, Baso # (Auto) 0.0, ESR 76 H 06/08/19 20:24: Sodium 144, Potassium 3.1 L, Chloride 106, Carbon Dioxide 29, Anion Gap 12.1, BUN 8, Creatinine 0.82, Estimated Creat Clear 55, Estimated GFR 68, Est GFR ( Amer) 82, Glucose 108 H, Calcium 9.2, Total Bilirubin 0.4, AST 19, ALT 13, Alkaline Phosphatase 117 H, Troponin I < 0.02, C-Reactive Protein 0.9, Total Protein 7.2, Albumin 3.4, Globulin 3.8 H, Albumin/Globulin Ratio 0.9 L, Amylase 18 L, Lipase 60 L 06/08/19 20:24: Lactate 0.5 06/08/19 20:24: Influenza Type A Ag Negative, Influenza Type B Ag Negative 06/08/19 20:25: Urine Color Yellow, Urine Appearance Clear, Urine pH 8.5, Ur Specific [place] 1.010, Urine Protein Negative, Urine Glucose (UA) Negative, Urine Ketones Negative, Urine Blood Negative, Urine Nitrate Negative, Urine Bilirubin Negative, Urine Urobilinogen 0.2, Ur Leukocyte Esterase Negative, Urine WBC Occasional, Ur Squamous Epith Cells Occasional, Urine Bacteria Trace 06/09/19 02:15: Troponin I 0.05 06/09/19 06:20: Troponin I 0.04 06/09/19 06:20: WBC 6.5, RBC 4.10 L, Hgb 12.0 L, Hct 39.8, MCV 96.9, MCH 29.3, MCHC 30.2 L, RDW 14.5, Plt Count 279, MPV 7.3 L, Neut % (Auto) 66.8, Lymph % (Auto) 28.0, [place] % (Auto) 4.4, Eos % (Auto) 0.5, Baso % (Auto) 0.3, Neut # (Auto) 4.4, Lymph # (Auto) 1.8, [place] # (Auto) 0.3, Eos # (Auto) 0.0, Baso # (Auto) 0.0 06/09/19 06:20: Sodium 145, Potassium 3.0 L, Chloride 109 H, Carbon Dioxide 27, Anion Gap 12.0, BUN 6 L, Creatinine 0.75, Estimated Creat Clear 57, Estimated GFR 75, Est GFR ( Amer) 91, Glucose 111 H, Calcium 8.8, Magnesium 2.0 <JasonOsvaldo Gurvinder - 06/09/19 16:24> Temp Pulse Resp BP Pulse Ox 98.9 F 75 20 180/84 H 95 06/09/19 04:00 06/09/19 04:00 06/09/19 04:00 06/09/19 04:00 06/09/19 04:00 Laboratory Results - last 24 hr 06/08/19 20:24: WBC 7.1, RBC 4.33, Hgb 12.9, Hct 41.5, MCV 95.9, MCH 29.9, MCHC 31.1 L, RDW 14.3, Plt Count 310, MPV 7.3 L, Neut % (Auto) 71.0, Lymph % (Auto) 23.8, [place] % (Auto) 4.6, Eos % (Auto) 0.5, Baso % (Auto) 0.1, Neut # (Auto) 5.0, Lymph # (Auto) 1.7, [place] # (Auto) 0.3, Eos # (Auto) 0.0, Baso # (Auto) 0.0, ESR 76 H 06/08/19 20:24: Sodium 144, Potassium 3.1 L, Chloride 106, Carbon Dioxide 29, Anion Gap 12.1, BUN 8, Creatinine 0.82, Estimated Creat Clear 55, Estimated GFR 68, Est GFR ( Amer) 82, Glucose 108 H, Calcium 9.2, Total Bilirubin 0.4, AST 19, ALT 13, Alkaline Phosphatase 117 H, Troponin I < 0.02, C-Reactive Protein 0.9, Total Protein 7.2, Albumin 3.4, Globulin 3.8 H, Albumin/Globulin Ratio 0.9 L, Amylase 18 L, Lipase 60 L 06/08/19 20:24: Lactate 0.5 06/08/19 20:24: Influenza Type A Ag Negative, Influenza Type B Ag Negative 06/08/19 20:25: Urine Color Yellow, Urine Appearance Clear, Urine pH 8.5, Ur Specific [place] 1.010, Urine Protein Negative, Urine Glucose (UA) Negative, Urine Ketones Negative, Urine Blood Negative, Urine Nitrate Negative, Urine Bilirubin Negative, Urine Urobilinogen 0.2, Ur Leukocyte Esterase Negative, Urine WBC Occasional, Ur Squamous Epith Cells Occasional, Urine Bacteria Trace 06/09/19 02:15: Troponin I 0.05 06/09/19 06:20: Troponin I 0.04 06/09/19 06:20: WBC 6.5, RBC 4.10 L, Hgb 12.0 L, Hct 39.8, MCV 96.9, MCH 29.3, MCHC 30.2 L, RDW 14.5, Plt Count 279, MPV 7.3 L, Neut % (Auto) 66.8, Lymph % (Auto) 28.0, [place] % (Auto) 4.4, Eos % (Auto) 0.5, Baso % (Auto) 0.3, Neut # (Auto) 4.4, Lymph # (Auto) 1.8, [place] # (Auto) 0.3, Eos # (Auto) 0.0, Baso # (Auto) 0.0 06/09/19 06:20: Sodium 145, Potassium 3.0 L, Chloride 109 H, Carbon Dioxide 27, Anion Gap 12.0, BUN 6 L, Creatinine 0.75, Estimated Creat Clear 57, Estimated GFR 75, Est GFR ( Amer) 91, Glucose 111 H, Calcium 8.8, Magnesium 2.0 <Bernarda Cole - 06/09/19 09:41> I & O for Last 24 hours: Intake & Output 06/07/19 06/08/19 06/09/19 06/10/19 11:59 11:59 11:59 11:59 Intake Total 2954 / 2954 Output Total 1400 / 1400 Balance 1554 / 1554 Weight 165 lb 3.007 oz 165 lb 3.007 oz <Osvaldo Gomez - 06/09/19 16:24> Intake & Output 06/06/19 06/07/19 06/08/19 06/09/19 11:59 11:59 11:59 11:59 Intake Total 2834 / 2834 Output Total 650 / 650 Balance 2184 / 2184 Weight 165 lb 3.007 oz <Bernarda Cole - 06/09/19 09:41> Microbiology Reports for the Last 24 Hours: Microbiology 06/09/19 13:40 Sputum - Expectorated Sputum Gram Stain - Final <Osvaldo Gomez 06/09/19 16:24> Radiology Reports for the Last 24 Hours: CT of the head and abdomen as well as chest x-ray results are pending <Bernarda Cole 06/09/19 09:41> - Constitutional no acute distress (Appears not to feel well. States she is nauseated) <Bernarda Cole 06/09/19 09:41> - *Routine HEENT Exam Head: Present: normocephalic, atraumatic <Bernarda Cole 06/09/19 09:41> Eye: Present: PERRL. Absent: conjunctival icterus, scleral injection <Bernarda Cole 06/09/19 09:41> ENT: Present: mucous membranes moist, oropharynx clear <Bernarda Cole 06/09/19 09:41> - *Routine Neck Exam Present: supple. Absent: carotid bruit, lymphadenopathy, thyromegaly <[facility] 06/09/19 09:41> - *Routine Respiratory Exam Present: CTA bilaterally (Anteriorly and posteriorly) <[facility] 06/09/19 09:41> - *Routine Cardiovascular Exam Present: RRR <ColeTanyaBernarda - 06/09/19 09:41> - *Routine Abdominal Exam Present: soft, normoactive bowel sounds. Absent: tenderness, distended, guarding <Counts Include [facility] 06/09/19 09:41> - *Routine Extremities Exam Present: ROBBY stockings. Absent: edema, calf tenderness <Counts Include [facility] 06/09/19 09:41> - *Routine Neurological Exam Present: alert, oriented X3 <Counts Include [facility] 06/09/19 09:41> Assessment and Plan (1) Enteritis Current visit: No Status: Acute Category: Medical Code(s): K52.9 - Noninfective gastroenteritis and colitis, unspecified (2) Hypokalemia Current visit: Yes Status: Acute Category: Medical Code(s): E87.6 - Hypokalemia (3) Chronic back pain Current visit: No Status: Acute Category: Medical Code(s): M54.9 - Dorsalgia, unspecified; G89.29 - Other chronic pain (4) Hypertensive urgency Current visit: Yes Status: Acute Category: Medical Code(s): I16.0 - Hypertensive urgency (5) Hypertension Current visit: No Status: Acute Category: Medical Code(s): I10 - Essential (primary) hypertension <Osvaldo Gomez 06/09/19 16:24> (1) Enteritis Current visit: No Status: Acute Category: Medical Code(s): K52.9 - Noninfective gastroenteritis and colitis, unspecified (2) Hypokalemia Current visit: Yes Status: Acute Category: Medical Code(s): E87.6 - Hypokalemia (3) Chronic back pain Current visit: No Status: Acute Category: Medical Code(s): M54.9 - Dorsalgia, unspecified; G89.29 - Other chronic pain <Bernarda Cole - 06/09/19 09:28> - Assessment and plan all Dx Assessment and Plan for all problems:: Patient seen and examined this morning concur with above assessment and plan. She was admitted from the ED with a diagnosis of community-acquired pneumonia but she has no respiratory symptoms and her lungs are clear this morning. Final chest x-ray report is pending. Symptoms are more consistent with an acute gastroenteritis and her blood pressure is elevated is due to the fact she did not take her medication yesterday. Headache this morning is likely related to her elevated pressure. <Osvaldo Gomez - 06/09/19 16:24> Potassium added to IV fluids at 75/h. Continue with anti-medics. Pending x-ray reports. <Bernarda Cole - 06/09/19 09:41>
[2019-06-10 06:37] LABS: Calcium 8.4 mg/dL (8.5-10.1)
--- NOTE | 2019-06-10 08:50 | Progress Note ---
<Bernarda Cloe - Last Filed: 06/10/19 09:03> Internal Medicine - PN: Subj *Date: 06/10/19 *Time: 09:03 Interval history: Patient feels good this morning. She states she is a new woman. She denies chest pain, shortness of breath, nausea and vomiting. She was able to eat breakfast this morning and enjoying it. She has had no further bowel movements. She did ambulate and sit up in a chair. She is voiding QS. Exam Vital signs and Labs for Last 24 Hours: Temp Pulse Resp BP Pulse Ox 98.1 F 59 L 16 128/68 95 06/10/19 04:00 06/10/19 04:00 06/10/19 04:00 06/10/19 04:00 06/10/19 04:00 Laboratory Results - last 24 hr 06/10/19 06:06: Sodium 142, Potassium 4.0 D, Chloride 109 H, Carbon Dioxide 27, Anion Gap 10.0, BUN 6 L, Creatinine 0.80, Estimated Creat Clear 57, Estimated GFR 70, Est GFR ( Amer) 84, Glucose 102, Calcium 8.4 L I & O for Last 24 hours: Intake & Output 06/07/19 06/08/19 06/09/19 06/10/19 11:59 11:59 11:59 11:59 Intake Total 2954 / 2954 2332 / 2332 Output Total 1400 / 1400 600 / 600 Balance 1554 / 1554 1732 / 1732 Weight 165 lb 3.007 oz 165 lb 5 oz Microbiology Reports for the Last 24 Hours: Microbiology 06/09/19 13:40 Sputum - Expectorated Sputum Gram Stain - Final Radiology Reports for the Last 24 Hours: CT of abdomen/pelvis with contrast 06/08/2019 Impression: Several hypodense splenic lesions which are nonspecific. Suggest nonemergent splenic ultrasound to initially evaluate. Mild probable stable left hepatic biliary dilatation possibly related to cholecystectomy. Correlate with bilirubin level Mild hiatal hernia Cholecystectomy and hysterectomy Chest x-ray 06/08/2019 No significant change in no acute process CT of the head brain without contrast 06/08/2019 No acute intracranial process. White matter findings likely from chronic microvascular ischemic change. - Constitutional no acute distress Comments: Sitting up in the bed and appears comfortable - *Routine Respiratory Exam Present: CTA bilaterally (Anteriorly and posteriorly) - *Routine Cardiovascular Exam Present: RRR - *Routine Abdominal Exam Present: soft, normoactive bowel sounds. Absent: tenderness, distended - *Routine Extremities Exam Absent: edema, calf tenderness - *Routine Neurological Exam Present: alert, oriented X3 Assessment and Plan (1) Enteritis Current visit: No Status: Acute Category: Medical Code(s): K52.9 - Noninfective gastroenteritis and colitis, unspecified (2) Hypokalemia Current visit: Yes Status: Acute Category: Medical Code(s): E87.6 - Hypokalemia (3) Chronic back pain Current visit: No Status: Acute Category: Medical Code(s): M54.9 - Dorsalgia, unspecified; G89.29 - Other chronic pain (4) Hypertensive urgency Current visit: Yes Status: Acute Category: Medical Code(s): I16.0 - Hypertensive urgency (5) Hypertension Current visit: No Status: Acute Category: Medical Code(s): I10 - Essential (primary) hypertension - Assessment and plan all Dx Assessment and Plan for all problems:: We will discharge today. Patient is excited to go home. <Osvaldo Gomez - Last Filed: 06/10/19 13:03> Internal Medicine - PN: Subj *Date: 06/10/19 *Time: 13:02 Exam Vital signs and Labs for Last 24 Hours: Temp Pulse Resp BP Pulse Ox 98.4 F 60 21 114/61 97 06/10/19 08:00 06/10/19 08:00 06/10/19 08:00 06/10/19 08:00 06/10/19 08:00 Laboratory Results - last 24 hr 06/10/19 06:06: Sodium 142, Potassium 4.0 D, Chloride 109 H, Carbon Dioxide 27, Anion Gap 10.0, BUN 6 L, Creatinine 0.80, Estimated Creat Clear 57, Estimated GFR 70, Est GFR ( Amer) 84, Glucose 102, Calcium 8.4 L I & O for Last 24 hours: Intake & Output 06/08/19 06/09/19 06/10/19 06/11/19 11:59 11:59 11:59 11:59 Intake Total 2954 / 2954 2692 / 2692 Output Total 1400 / 1400 900 / 900 Balance 1554 / 1554 1792 / 1792 Weight 165 lb 3.007 oz 165 lb 5 oz Microbiology Reports for the Last 24 Hours: Microbiology 06/09/19 13:40 Sputum - Expectorated Sputum Gram Stain - Final Assessment and Plan (1) Enteritis Current visit: No Status: Acute Category: Medical Code(s): K52.9 - Noninfective gastroenteritis and colitis, unspecified (2) Hypokalemia Current visit: Yes Status: Acute Category: Medical Code(s): E87.6 - Hypokalemia (3) Chronic back pain Current visit: No Status: Acute Category: Medical Code(s): M54.9 - Dorsalgia, unspecified; G89.29 - Other chronic pain (4) Hypertensive urgency Current visit: Yes Status: Acute Category: Medical Code(s): I16.0 - Hypertensive urgency (5) Hypertension Current visit: No Status: Acute Category: Medical Code(s): I10 - Essential (primary) hypertension - Assessment and plan all Dx Assessment and Plan for all problems:: Patient seen and examined this morning. She looks and feels better. She is tolerating her diet. No further vomiting or diarrhea. She is eager to go home. Potassium is now normal.
--- NOTE | 2019-06-12 21:45 | Discharge Summary ---
General - General Admission date:: 06/08/19 <Osvaldo Gomez - 06/23/19 22:57> 06/08/19 <Belinda Miranda - 06/12/19 21:47> Discharge date: 06/10/19 <Belinda Miranda - 06/12/19 21:47> HPI HPI: Ms. Roberts is a 78-year-old female patient of Dr. Gomez'camilo with a history of hypertension, allergic rhinitis, hyperlipidemia, cervical radiculopathy, GERD, osteoarthritis, and chronic pain syndrome who presented to the emergency room with nausea and vomiting. She stated she awakened the am of admission and felt poorly and then began with the nausea and vomiting. She was able to retain Sprite but was unable to eat and did not take her medicines. She also described having a headache. She denied having chest pain, shortness of breath, cough, and any upper respiratory symptoms. Her family made her come to the emergency room. <Belinda Miranda - 06/12/19 21:47> Hospital Course Hospital Course: The patient had an abdominal/pelvic CT which showed several hypodense splenic lesions. Radiology suggested a nonemergent splenic ultrasound. There was also mild left intrahepatic biliary dilatation. She had a chest x-ray showing nothing acute and a head CT showing nothing acute. She was admitted and started on IV fluids with potassium due to hypokalemia, and antiemetics. She was admitted from the ED with a diagnosis of community-acquired pneumonia, but had no respiratory symptoms and her lungs were clear. Her chest x-ray was also clear, therefore her symptoms were more consistent with acute gastroenteritis. Her blood pressure was also elevated and it was felt this was causing her headache. By 06/10/2019, the patient felt like a "new woman." She had no further diarrhea, nausea, or vomiting. She was able to eat breakfast and ambulate around her room. Her potassium had improved and she was stable to be discharged home. <Belinda Miranda - 06/12/19 21:47> Objective Vital signs: Temp Pulse Resp BP Pulse Ox 99.2 F 57 L 20 145/70 H 96 06/10/19 12:00 06/10/19 12:00 06/10/19 12:00 06/10/19 12:00 06/10/19 12:00 <Osvaldo Gomez - 06/23/19 22:57> Temp Pulse Resp BP Pulse Ox 99.2 F 57 L 20 145/70 H 96 06/10/19 12:00 06/10/19 12:00 06/10/19 12:00 06/10/19 12:00 06/10/19 12:00 <Belinda Miranda - 06/12/19 21:47> Narrative: - Constitutional no acute distress Comments: Sitting up in the bed and appears comfortable - *Routine Respiratory Exam Present: CTA bilaterally (Anteriorly and posteriorly) - *Routine Cardiovascular Exam Present: RRR - *Routine Abdominal Exam Present: soft, normoactive bowel sounds. Absent: tenderness, distended - *Routine Extremities Exam Absent: edema, calf tenderness - *Routine Neurological Exam Present: alert, oriented X3 <Belinda Miranda - 06/12/19 21:47> Results Labs on day of discharge: Preliminary micro results at discharge 06/08/19 20:24 Blood Culture - Preliminary Blood NO GROWTH AFTER 48 HOURS 06/08/19 20:24 Blood Culture - Preliminary Blood NO GROWTH AFTER 48 HOURS <Belinda Miranda - 06/12/19 21:47> DS: Diagnosis - Discharge Diagnosis (1) Enteritis Status: Acute (2) Hypokalemia Status: Acute (3) Chronic back pain Status: Acute (4) Hypertensive urgency Status: Acute (5) Hypertension Status: Acute <Belinda Miranda 06/12/19 21:40> (1) Enteritis Status: Acute (2) Hypokalemia Status: Acute (3) Chronic back pain Status: Acute (4) Hypertensive urgency Status: Acute (5) Hypertension Status: Acute <Osvaldo Gomez - 06/23/19 22:57> Discharge Plan - Patient Discharge Instructions ACTIVITY: Continue current activity <Belinda iMranda 06/12/19 21:47> DIET: continue same diet <Belinda Miranad 06/12/19 21:47> Patient Instructions: DI for Viral Gastroenteritis -- Adult, DI for Hypokalemia, Hypokalemia <Osvaldo Gomez - 06/23/19 22:57> Forms: <Osvaldo Gomez - 06/23/19 22:57> - Follow up Plan Follow up with: Osvaldo Gomez MD [Primary Care Provider] - (as scheduled) <Osvaldo Gomez - 06/23/19 22:57> Disposition: Home, Self-Care <Osvaldo Gomez - 06/23/19 22:57> Home Medications: Home Medications Medication Instructions Recorded Confirmed Type atorvastatin 20 mg tablet 20 mg PO DAILY tab 03/19/18 06/08/19 History cholecalciferol (vitamin D3) 2,000 2,000 unit PO DAILY cap 03/19/18 06/08/19 History unit capsule diclofenac sodium 75 mg 75 mg PO BID 03/19/18 06/08/19 History tablet,delayed release furosemide 40 mg tablet 40 mg PO DAILY tab 03/19/18 06/08/19 History glucosamine HCl 1,500 mg tablet 1,500 mg PO BID tab 03/19/18 06/08/19 History multivitamin tablet 1 tab PO DAILY 03/19/18 06/09/19 History omega-3 fatty acids 1,000 mg 1,000 mg PO BID cap 03/19/18 06/08/19 History capsule vitamin B complex tablet 1 tab PO DAILY tab 03/19/18 06/08/19 History Gabapentin 600 mg PO TID 11/16/18 06/08/19 History Pantoprazole Sodium [Protonix 40mg 40 mg PO DAILY 11/16/18 06/08/19 History tablet] Tramadol HCl [Tramadol 50mg 50 mg PO Q6HP PRN 11/16/18 06/09/19 History Tab] Fexofenadine HCl 180 mg PO DAILY 11/17/18 06/08/19 History Meloxicam 7.5 mg PO BID 11/17/18 06/08/19 History cloNIDine HCl [cloNIDine 0.2mg 0.2 mg PO BID 06/08/19 06/09/19 History Tablet] <Osvaldo Gomez - 06/23/19 22:57> Prescriptions/Medication Reconciliation: Continued furosemide 40 mg tablet 40 mg PO DAILY tab atorvastatin 20 mg tablet 20 mg PO DAILY tab glucosamine HCl 1,500 mg tablet 1,500 mg PO BID tab omega-3 fatty acids 1,000 mg capsule 1,000 mg PO BID cap multivitamin tablet 1 tab PO DAILY cholecalciferol (vitamin D3) 2,000 unit capsule 2,000 unit PO DAILY cap diclofenac sodium 75 mg tablet,delayed release 75 mg PO BID vitamin B complex tablet 1 tab PO DAILY tab Tramadol HCl [Tramadol 50mg Tab] 50 mg PO Q6HP PRN PRN Reason: Moderate Pain Meloxicam 7.5 mg PO BID cloNIDine HCl [cloNIDine 0.2mg Tablet] 0.2 mg PO BID Gabapentin 600 mg PO TID Pantoprazole Sodium [Protonix 40mg tablet] 40 mg PO DAILY Fexofenadine HCl 180 mg PO DAILY <Osvaldo Gomez - 06/23/19 22:57> - Problem Reconciliation Problems Reviewed?: Yes <Osvaldo Gomez - 06/23/19 22:57> Yes <Belinda Miranda - 06/12/19 21:47> - Additional Information Additional Information: Concur with plan for discharge as outlined above. <Osvaldo Gomez - 06/23/19 22:57>
== END 2019-06-10 16:58 | disposition home or self-care (01) ==
LOC: ER 20:12 → 2ND 20:12
PROVIDERS: ADMIT Family Medicine; ATTEND Family Medicine
CPT/HCPCS: 36415; 70450; 71020; 71046; 74177; 80048; 80053; 81001; 82150; 83605; 83690; 83735; 84484; 85025; 85651; 86140; 87040; 87070; 87205; 87275; 87276; 93005; 96365; 96367; 96375; 99285; G0378; J0456; J2405; Q9967

== ENCOUNTER → 2019-08-25 09:44 | Outpatient (CLI) | payer MEDICARE, SELFPAY ==
--- NOTE | 2019-08-25 09:48 | US_ITS ---
PROCEDURE: US ABDOMEN LIMITED CLINICAL INDICATION: CYST ON SPLEEN Follow-up splenic lesion COMPARISON: RUQ US RUQ-(ABD LTD)1ORGAN/QUAD/FU from 03/21/2013 ABDPELW/O CT ABD PELVIS W/O CONTRAST from 04/19/2017 CT ABDOMEN PELVIS W CON from 06/08/2019 FINDINGS: There are 2 lesions of the spleen identified by ultrasound corresponding to the CT abnormality. These do not represent cysts and are isoechoic measuring up to 1.2 x 1.4 cm at the larger lesion. The smaller lesion is 0.6 cm. These are nonspecific and are well-circumscribed. IMPRESSION: There are 2 solid-appearing splenic lesions. Does the patient have a history of lymphoma or carcinoma? If not then, these are statistically likely benign such as hemangioma or lymphangioma. Recommend six-month follow-up to confirm short term stability if there is no history of lymphoma or primary carcinoma Dictated by: Hang Griffin MD 08/25/2019 11:20 Electronically signed by Hang Griffin MD in [facility] 08/25/2019 11:20
== END ==
PROVIDERS: PCP Family Medicine; Visit Provider Family Medicine
DX: D73.4 Cyst of spleen (principal)
CPT/HCPCS: 76705

== ENCOUNTER → 2020-11-30 09:00 | Outpatient (CLI) | payer MEDICARE, SELFPAY ==
--- NOTE | 2020-11-30 09:22 | US_ITS ---
PROCEDURE: US ABDOMEN LIMITED CLINICAL INDICATION: SPLENIC LESION Follow-up splenic lesion COMPARISON: CT CT ABDOMEN PELVIS W CON from 06/08/2019 US US ABDOMEN LIMITED from 08/25/2019 FINDINGS: Spleen measures 8 x 6 cm. Multiple splenic calcifications are present. The previously noted small area of decreased echogenicity is not demonstrated on today's exam. Images of the left kidney are unremarkable. IMPRESSION: Multiple splenic granulomas otherwise negative splenic ultrasound Dictated by: Hang Griffin MD 11/30/2020 19:40 Hang Griffin MD in [facility] 11/30/2020 19:40
--- NOTE | 2020-11-30 09:22 | MM_ITS ---
PROCEDURE: MM DIG SCREENING MAMM BI W/CAD Digital Breast Tomosynthesis Included CLINICAL INDICATION: SCREENING There is no personal or family history of breast cancer. COMPARISON: MG DMDXUWAL DIG MAMM-DX UNI LT W/AVS W/CAD from 02/09/2017 MG [facility] MM Dig screening mamm BI w/CAD from 03/11/2018 MG MM DIG SCREENING MAMM BI W/CAD from 05/19/2019 TECHNIQUE: Standard CC and MLO images and 3D Tomosynthesis was obtained. R2 CAD reviewed. FINDINGS: Scattered fibroglandular densities are seen in both breasts. There is moderate arterial calcification in each breast. There are several CAD markers on each breast all appear to be due to arterial calcifications. There are couple of benign-appearing microcalcifications right breast as well. There is no new or suspicious lesion in either breast and no suspicious microcalcifications. IMPRESSION: Fibrofatty parenchyma with no suspicious lesions seen BI-RAD Category: 2 Benign Finding(s) FOLLOW-UP: 1YR 1 Year Follow-up (A letter has been sent to the patient regarding results of the study.) Dictated by: Dr. Gino Bloom MD 12/03/2020 08:22 Dr. Gino Bloom MD in [place] 12/03/2020 08:22
== END ==
PROVIDERS: PCP Family Medicine; Visit Provider Family Medicine
DX: Z12.31 Encounter for screening mammogram for malignant neoplasm of breast (principal); D73.9 Disease of spleen, unspecified
CPT/HCPCS: 76705; 77063; 77067

== ENCOUNTER 2021-06-08 17:37 | Emergency (ER) | payer MEDICARE, SELFPAY ==
[2021-06-08 17:39] VITALS: BP 189/89; PULSE 67; RESP 16; TEMP 36.8; O2SAT 96; BMI 24.9
--- NOTE | 2021-06-08 18:01 | CT_ITS ---
PROCEDURE INFORMATION: Exam: CT Abdomen And Pelvis With Contrast Exam date and time: 06/08/21 06:01 PM Age: 80 years old Clinical indication: Abdominal pain; Generalized; Additional info: Abdominal pain last bowel movement x 1 week ago and abdominal pain x 3 weeks TECHNIQUE: Imaging protocol: Computed tomography of the abdomen and pelvis with contrast. Radiation optimization: All CT scans at this facility use at least one of these dose optimization techniques: automated exposure control; mA and/or kV adjustment per patient size (includes targeted exams where dose is matched to clinical indication); or iterative reconstruction. Contrast material: ISOVUE; Contrast volume: 75 ml; Contrast route: IV; COMPARISON: CT ABDOMEN PELVIS W CON 06/08/19 09:39 PM FINDINGS: Tubes, catheters and devices: None noted. Lungs: Lung bases appear clear. Heart: No significant coronary calcifications. No cardiomegaly. No significant pericardial effusion. Liver: Normal. No mass. Gallbladder and bile ducts: Cholecystectomy. No ductal dilation. Pancreas: Normal. No ductal dilation. Spleen: Calcified granulomata. No splenomegaly. Adrenal glands: Normal. No mass. Kidneys and ureters: Normal. No hydronephrosis. Stomach and bowel: Moderate stool throughout the colon. Diverticulosis without diverticulitis. No obstruction. No mucosal thickening. Appendix: No evidence of appendicitis. Intraperitoneal space: Unremarkable. No free air. No significant fluid collection. Retroperitoneal space: No significant retroperitoneal inflammatory changes are noted. Vasculature: Unremarkable. No abdominal aortic aneurysm. Lymph nodes: Unremarkable. No enlarged lymph nodes. Urinary bladder: Unremarkable as visualized. Reproductive: Hysterectomy. Bones/joints: Internal fixation of the spine. Dorsal column stimulator in place. No acute fracture. Soft tissues: Unremarkable. IMPRESSION: 1. Internal fixation of the spine. 2. Cholecystectomy. 3. Moderate stool throughout the colon. 4. Hysterectomy.
[2021-06-08 18:11] LABS: Microscopic, Urine URINE MICROSCOPIC (MICROSCOPIC)
[2021-06-08 18:14] LABS: Appearance,Urine CLEAR (Clear); Blood, Urine Negative (Negative); Color,Urine STRAW (Yellow); Glucose,Urine (UA) Negative (Negative); Ketones,Urine Negative (Negative); Leukocyte Esterase,Urine TRACE (Negative); Nitrate,Urine Negative (Negative); Protein,Urine Negative (Negative); Specific Gravity, Urine 1.015 (1.005-1.030); Urobilinogen,Urine 0.2 EU/dl (0.2)
[2021-06-08 18:30] LABS: Bilirubin,Urine 2+ (Negative)
[2021-06-08 18:31] LABS: WBC,Urine Occasional #/hpf (0-3)
[2021-06-08 18:32] LABS: Squamous Epithelial Cell,Urine Occasional #/hpf (0-5)
[2021-06-08 18:34] LABS: Basophils % 0.6 % (0.1-2.0); Eosinophils # 0.1 K/mm3 (0.0-0.4); Eosinophils % 1.5 % (0.1-12.0); Hematocrit 42.4 % (37.0-47.0); Hemoglobin 13.9 g/dL (12.2-16.2); Lymphocytes # 1.8 K/mm3 (0.7-4.5); Lymphocytes % 27.7 % (10-50); Mean Corpuscular HGB Conc 32.8 g/dL (31.8-35.4); Mean Corpuscular Hemoglobin 30.7 pg (27.0-31.2); Mean Corpuscular Volume 93.5 fl (81-99); Mean Platelet Volume 7.2 fl (7.4-10.4); Monocytes # 0.4 K/mm3 (0.1-1.0); Monocytes % 5.7 % (1.7-9.3); Neutrophils # 4.2 K/mm3 (1.8-7.8); Neutrophils % 64.4 % (37.0-80.0); Platelet Count 252 K/mm3 (142-424); Red Blood Count 4.54 M/mm3 (4.20-5.40); Red Cell Distribution Width 13.9 % (11.5-17.5); White Blood Count 6.5 K/mm3 (4.8-10.8)
--- NOTE | 2021-06-08 18:34 | HMH.EDGENADL ---
ED Disposition Condition on Discharge: Good - Critical Care Critical Care Time: No <Ramon Sequeira - Last Filed: 06/08/21 19:48> <Sabino Tee - Last Filed: 06/08/21 20:37> Clinical Impression: Abdominal pain Qualifiers: Abdominal location: generalized Qualified Code(s): R10.84 - Generalized abdominal pain Disposition: Home, Self-Care Instructions: DI for Constipation Additional Instructions: call pcp in am Referrals: Osvaldo Gomez MD [Primary Care Provider] - Attestation: On 06/08/21, the high probability of a clinically significant, sudden or life threatening deterioration of the following system(s) required my full and direct attention, intervention and personal management. The time I documented below is in addition to time spent performing reported procedures but includes the following listed in this critical care notation. Medical Decision Making - Medical Records Medical records reviewed: Yes: I reviewed the patient's medical records. - Akin Inquiry Pt receiving controlled substance: No - Lab Data Result diagrams: 06/08/21 18:20 06/08/21 18:20 <Ramon Sequeira - Last Filed: 06/08/21 19:48> - Lab Data Lab results reviewed: Yes: I reviewed the patient's lab results. Result diagrams: 06/08/21 18:20 06/08/21 18:20 - CT Data CT Scan: Abdomen, Pelvis Time Received: 20:[address] Reviewed: Yes: I have viewed the radiologist's interpretation Preliminary Findings: Abnormal (constipation) <Sabino Tee - Last Filed: 06/08/21 20:37> Vital Signs: 06/08/21 17:39 06/08/21 18:53 06/08/21 19:01 Temperature 98.2 F Temperature Source Oral Pulse Rate 64 77 Pulse Rate [Right Radial] 67 Respiratory Rate 16 18 Blood Pressure 146/76 H 134/77 Blood Pressure [Right Arm] 189/89 H Blood Pressure Mean [Right Arm] 122 Blood Pressure Source [Right Arm] Automatic Cuff Blood Pressure Position [Right Arm] Sitting 02 Sat by Pulse Oximetry 96 97 97 Oxygen Delivery Method Room Air 06/08/21 20:03 Temperature Temperature Source Pulse Rate 73 Pulse Rate [Right Radial] Respiratory Rate Blood Pressure 103/85 L Blood Pressure [Right Arm] Blood Pressure Mean [Right Arm] Blood Pressure Source [Right Arm] Blood Pressure Position [Right Arm] 02 Sat by Pulse Oximetry 97 Oxygen Delivery Method - Lab Data Lab Results 06/08/21 17:54: Urine Color Straw, Urine Appearance Clear, Urine pH 8.0, Ur Specific [place] 1.015, Urine Protein Negative, Urine Glucose (UA) Negative, Urine Ketones Negative, Urine Blood Negative, Urine Nitrate Negative, Urine Bilirubin 2+ A, Urine Urobilinogen 0.2, Ur Leukocyte Esterase Trace, Urine RBC None, Urine WBC Occasional, Ur Squamous Epith Cells Occasional, Urine Bacteria None 06/08/21 18:20: Sodium 141, Potassium 3.3 L, Chloride 102, Carbon Dioxide 31 H, Anion Gap 11.3, BUN 9, Creatinine 0.90, Estimated Creat Clear 48, Estimated GFR 61, Est GFR ( Amer) 73, Glucose 104 H, Calcium 11.1 H, Total Bilirubin 0.4, AST 36, ALT 16, Alkaline Phosphatase 140 H, Total Protein 7.4, Albumin 4.3, Globulin 3.1, Albumin/Globulin Ratio 1.4, Lipase 51 06/08/21 18:20: WBC 6.5, RBC 4.54, Hgb 13.9, Hct 42.4, MCV 93.5, MCH 30.7, MCHC 32.8, RDW 13.9, Plt Count 252, MPV 7.2 L, Neut % (Auto) 64.4, Lymph % (Auto) 27.7, [place] % (Auto) 5.7, Eos % (Auto) 1.5, Baso % (Auto) 0.6, Neut # (Auto) 4.2, Lymph # (Auto) 1.8, [place] # (Auto) 0.4, Eos # (Auto) 0.1, Baso # (Auto) 0.0 Orders (Tests/Meds): ED MEDICATIONS Discontinued Medications Generic Name Dose Route Start Last Admin Trade Name Freq PRN Reason Stop Dose Admin Iopamidol 75 ml 06/08/21 19:37 06/08/21 19:38 Iopamidol-370 (76%);100ml Bottle IV 06/08/21 19:38 75 ml ONCE ONE Administration Sodium Chloride 10 ml 06/08/21 19:37 06/08/21 19:38 Sodium Chloride 0.9% 10ml Syr (Rad Only) IV 06/08/21 19:38 10 ml ONCE ONE Administration Medical Decision Narrative: 80-year-old fema
[2021-06-08 18:38] LABS: Chloride 102 mmol/L (98-107); Potassium 3.3 mmoL/L (3.5-5.1); Sodium 141 mmol/L (136-145)
[2021-06-08 18:40] LABS: Alanine Aminotransferase 16 U/L (12-78); Alkaline Phosphatase 140 U/L (38-126); Aspartate Amino Transferase 36 U/L (14-36); Bilirubin,Total 0.4 mg/dl (0.2-1.3); Blood Urea Nitrogen 9 mg/dl (7-17); Creatinine Clearance Estimated 48 mL/min (50-200); Estimated Glomerular Filt Rate 61 ml/min (>60); GFR (African American) 73 ML/MIN (>60)
[2021-06-08 18:41] LABS: Albumin Level 4.3 g/dl (3.5-5.0); Albumin/Globulin Ratio 1.4 (1.1-1.8); Anion Gap 11.3 mEq/L (5-15); Calcium 11.1 mg/dl (8.4-10.2); Carbon Dioxide 31 mmol/L (22.0-30.0); Globulin 3.1 g/dL (1.3-3.2); Glucose 104 mg/dl (74-100); Lipase 51 U/L (23-300); Total Protein,Serum 7.4 g/dl (6.3-8.2)
[2021-06-08 18:53] VITALS: BP 146/76; PULSE 64; RESP 18; O2SAT 97
[2021-06-08 19:01] VITALS: BP 134/77; PULSE 77; O2SAT 97
--- NOTE | 2021-06-08 20:02 | PC.NURSE ---
patient asking for something to drink, I explained that we need to wait until result from her CT come back
[2021-06-08 20:03] VITALS: BP 103/85; PULSE 73; O2SAT 97
[2021-06-08 20:50] VITALS: BP 115/78; PULSE 80; RESP 19; TEMP 36.7; O2SAT 98
== END 2021-06-08 20:55 | disposition home or self-care (01) ==
PROVIDERS: Emergency Provider Emergency Medicine; PCP Family Medicine
DX: R10.84 Generalized abdominal pain (principal); K59.00 Constipation, unspecified; K21.9 Gastro-esophageal reflux disease without esophagitis; E78.5 Hyperlipidemia, unspecified; I10 Essential (primary) hypertension; Z88.5 Allergy status to narcotic agent
CPT/HCPCS: 74177; 80053; 81001; 83690; 85025; 99283; Q9967

== ENCOUNTER → 2021-06-21 15:48 | Outpatient (CLI) | payer MEDICARE, SELFPAY ==
--- NOTE | 2021-06-21 15:52 | XR_ITS ---
PROCEDURE: XR KNEE LT 2V CLINICAL INDICATION: S/P RT KNEE REPLACEMENT COMPARISON: No exams were available for comparison FINDINGS: Good alignment status post total knee arthroplasty. No complications apparent. No fracture or dislocation. No lytic or blastic change. There is a faint metallic density in the suprapatellar region possibly from the previous surgery. Other findings:None. IMPRESSION: Good alignment status post total knee arthroplasty Dictated by: Hang Griffin MD 06/21/2021 16:53 Hang Griffin MD in [place] 06/21/2021 16:53
== END ==
PROVIDERS: PCP Family Medicine; Visit Provider Family Medicine
DX: M25.561 Pain in right knee (principal); Z96.651 Presence of right artificial knee joint
CPT/HCPCS: 73560

== ENCOUNTER → 2021-12-14 09:41 | Outpatient (CLI) | payer MEDICARE, SELFPAY ==
--- NOTE | 2021-12-14 09:47 | MM_ITS ---
PROCEDURE INFORMATION: Exam: MG Bilateral Screening 3D Mammography Exam date and time: 12/14/2021 10:26 AM Age: 81 years old Clinical indication: Screening examination. Personal history of skin cancer. No family history of breast cancer. TECHNIQUE: Imaging protocol: Bilateral Screening tomosynthesis and 2D mammography including computer-aided detection (CAD) when performed. COMPARISON: 1. MG MM DIG SCREENING MAMM BI W/CAD 11/30/2020 9:41 AM 2. MG MM DIG SCREENING MAMM BI W/CAD 05/19/2019 4:41 PM 3. MG SCBI MM Dig screening mamm BI w/CAD 03/11/2018 10:25 AM 4. MG DMDXUWAL DIG MAMM-DX UNI LT W/AVS W/CAD 02/09/2017 1:04 PM FINDINGS: MAMMOGRAPHY: Breast composition: The breast tissue is composed of scattered areas of fibroglandular density. Mass: None. Architectural distortion: None. Calcifications: No suspicious calcifications. Asymmetric density: None. Skin thickening: None. Axillary adenopathy: None. IMPRESSION: No mammographic evidence of malignancy. Annual screening is recommended unless otherwise clinically indicated. ASSESSMENT: BI-RADS Category 1: Negative
--- NOTE | 2021-12-14 09:48 | XR_ITS ---
FINAL REPORT TECHNIQUE: Bone densitometry calculations of the right forearm and each hip were obtained. CLINICAL HISTORY: osteoporosis screening FINDINGS: Using the right forearm, the bone mineral density of the distal 1/3 is 0.536 g/cm2, corresponding to a T-score of -2.6. Using the left hip, the bone mineral density of the femoral neck is 0.814 g/cm2, corresponding to a T-score of -1.0. Using the right hip, the bone mineral density of the femoral neck is 0.892 g/cm2, corresponding to a T-score of 0.4. NOTE: T-score: Standard deviation compared with peak bone mass of young adult mean. *Following the recommendations of the International Society of Bone Densitometry, classification of hip BMD is based on the lower of two T-scores; total hip or femoral neck. IMPRESSION: Osteoporosis: Lowest T-score is at or below -2.5. This patient's T-score meets the World Health Organization criteria for osteoporosis. Reviewed, Interpreted and Dictated by Jarrod Caldwell III, MD Transcribed by Mica Cortes Authenticated by Jarrod Caldwell III, MD on 12/14/2021 01:05:48 PM [facility]
== END ==
PROVIDERS: PCP Family Medicine; Visit Provider Family Medicine
DX: Z12.31 Encounter for screening mammogram for malignant neoplasm of breast (principal); M81.0 Age-related osteoporosis without current pathological fracture
CPT/HCPCS: 77063; 77067; 77080

== ENCOUNTER 2022-02-23 14:47 | Emergency (ER) | payer MEDICARE, SELFPAY ==
[2022-02-23 14:49] VITALS: BP 181/83; PULSE 69; RESP 18; TEMP 36.6; O2SAT 94; BMI 25.2
--- NOTE | 2022-02-23 14:59 | HMH.EDGENADL ---
ED Disposition Clinical Impression: Facial contusion Disposition: Home, Self-Care Condition on Discharge: Good Instructions: How to Prevent Falls Referrals: Rizwana Baird MD [Primary Care Provider] - Time of Disposition: 17:04 - Critical Care Critical Care Time: No Attestation: On 02/23/22, the high probability of a clinically significant, sudden or life threatening deterioration of the following system(s) required my full and direct attention, intervention and personal management. The time I documented below is in addition to time spent performing reported procedures but includes the following listed in this critical care notation. Medical Decision Making - Medical Records Medical records reviewed: Yes: I reviewed the patient's medical records. - Akin Inquiry Pt receiving controlled substance: No Vital Signs: 02/23/22 14:49 02/23/22 15:31 Temperature 97.9 F Temperature Source Oral Pulse Rate 61 Pulse Rate [Right Radial] 69 Respiratory Rate 18 Blood Pressure 154/78 H Blood Pressure [Right Arm] 181/83 H Blood Pressure Mean 108 Blood Pressure Mean [Right Arm] 115 Blood Pressure Source [Right Arm] Automatic Cuff Blood Pressure Position [Right Arm] Sitting 02 Sat by Pulse Oximetry 94 L 99 Oxygen Delivery Method Room Air Medical Decision Narrative: no acute post-traumatic injuries General Adult HPI - General Stated complaint: AO fall 02/22 facial injury Time Seen by Provider: 02/23/22 14:59 Mode of Arrival: Ambulatory Source of Information: Patient - History of Present Illness HPI narrative: 81yo/F, denies anticoagulants, presents s/p mechanical fall where she tripped, landed on her face. Denies LOC, denies neck or back pain, was subsequently ambulatory. Sustained deep abrasion to the nose in an area she states there was a known lesion suspicious for malignancy. Also sustained hematoma of the forehead. Denies any blurry or double vision, nausea or vomiting or any other symptoms. - Related Data Home Medications Medication Instructions Recorded Confirmed atorvastatin 20 mg tablet 20 mg PO DAILY tab 03/19/18 06/08/19 cholecalciferol (vitamin D3) 50 2,000 unit PO DAILY cap 03/19/18 06/08/19 mcg (2,000 unit) capsule diclofenac sodium 75 mg 75 mg PO BID 03/19/18 06/08/19 tablet,delayed release furosemide 40 mg tablet 40 mg PO DAILY tab 03/19/18 06/08/19 glucosamine HCl 1,500 mg tablet 1,500 mg PO BID tab 03/19/18 06/08/19 multivitamin 1 tab PO DAILY 03/19/18 06/09/19 omega-3 fatty acids 1,000 mg 1,000 mg PO BID cap 03/19/18 06/08/19 capsule vitamin B complex 1 tab PO DAILY tab 03/19/18 06/08/19 Gabapentin 600 mg PO TID 11/16/18 06/08/19 Pantoprazole Sodium [Protonix 40mg 40 mg PO DAILY 11/16/18 06/08/19 tablet] Tramadol HCl [Tramadol 50mg 50 mg PO Q6HP PRN 11/16/18 06/09/19 Tab] Fexofenadine HCl 180 mg PO DAILY 11/17/18 06/08/19 Meloxicam 7.5 mg PO BID 11/17/18 06/08/19 cloNIDine HCL [cloNIDine 0.2mg 0.2 mg PO BID 06/08/19 06/09/19 Tablet] Allergies Allergy/AdvReac Type Severity Reaction Status Date / Time acetaminophen [From PERCOCET] Allergy Mild Verified 11/25/17 13:39 codeine [CODEINE] Allergy Mild Verified 11/25/17 13:39 cyclobenzaprine Allergy Mild Verified 11/25/17 13:42 [From Flexeril] morphine [MORPHINE] Allergy Mild Verified 11/25/17 13:39 oxycodone [From PERCOCET] Allergy Mild Verified 11/25/17 13:39 penicillin G [PENICILLIN G] Allergy Mild Verified 11/25/17 13:39 loratadine [From CLARITIN] Allergy Unknown Verified 11/25/17 13:39 meperidine [From Demerol] AdvReac Mild Verified 11/25/17 13:42 [facility] History - Hepatitis A Screen Attestation statement:: This patient has been screened for Hepatitis A risk factors. Medical History: Reports:: Gastroesophageal Reflux Disease(GERD), Heart Murmur, Hyperlipidemia, Hypertension Denies:: Cancer, Diabetes Mellitus Type 1, Diabetes Mellitus Type 2, MRSA Other M
--- NOTE | 2022-02-23 15:08 | XR_ITS ---
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 There is postoperative change from knee arthroplasty. The alignment is normal. There is no evidence of joint effusion. There is pre patellar soft tissue swelling. IMPRESSION: Prepatellar soft tissue swelling with no acute abnormality identified. Reviewed, Interpreted and Dictated by Jarrod Caldwell III, MD Transcribed by Mica Cortes Authenticated and [facility]
--- NOTE | 2022-02-23 15:08 | CT_ITS ---
FINAL REPORT TECHNIQUE: Thin section axial CT images of the facial bones and sinuses were obtained without contrast. Coronal reformatted images were also obtained. This study was performed with techniques to keep radiation doses as low as reasonably achievable, (ALARA). Individualized dose reduction techniques using automated exposure control or adjustment of mA and/or kV according to the patient's size were employed. 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 IMPRESSION: No fracture or acute bony abnormality identified. Reviewed, Interpreted and Dictated by Jarrod Caldwell III, MD Transcribed by Mica Cortes Authenticated and [facility]
--- NOTE | 2022-02-23 15:08 | CT_ITS ---
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 Coronal reformatted images were also obtained. This study was performed with techniques to keep radiation doses as low as reasonably achievable (ALARA). Individualized dose reduction techniques using automated exposure control or adjustment of mA and/or kV according to the patient''s size were employed. There is generalized age-appropriate atrophy. Periventricular low-attenuation areas are seen consistent with mild chronic ischemic changes. There is no evidence of intracranial hemorrhage or mass. There is no evidence of acute infarct. There is no evidence of shift of the midline structures. No skull abnormality is seen on the bone window images. IMPRESSION: Atrophy and mild periventricular chronic ischemic changes. No acute intracranial abnormality identified. Reviewed, Interpreted and Dictated by Jarrod Caldwell III, MD Transcribed by Marek Bassett Authenticated and [facility]
--- NOTE | 2022-02-23 15:09 | CT_ITS ---
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 Sagittal and coronal reformatted images were also obtained. This study was performed with techniques to keep radiation doses as low as reasonably achievable (ALARA). Individualized dose reduction techniques using automated exposure control or adjustment of mA and/or kV according to the patient's size were employed. There is no evidence of fracture or dislocation. There is 4 mm of anterolisthesis of C3 on C4. There is multilevel moderate and severe degenerative change. There are multilevel disc osteophyte complexes. There is multilevel neural foraminal narrowing which is worse at C5-6 and C6-7. Mild central canal stenosis at C5-6. No paraspinous soft tissue abnormality is seen. Limited images of the upper thorax are unremarkable. IMPRESSION: No fracture or acute bony abnormality identified. Multilevel degenerative change and spondylosis as above. Reviewed, Interpreted and Dictated by Jarrod Caldwell III, MD Transcribed by Mica Cortes Authenticated and [facility]
--- NOTE | 2022-02-23 15:17 | PC.NURSE ---
Notified rad of scans
[2022-02-23 15:31] VITALS: BP 154/78; PULSE 61; O2SAT 99
[2022-02-23 17:20] VITALS: BP 184/90; PULSE 56; RESP 16; TEMP 36.7; O2SAT 97
== END 2022-02-23 17:21 | disposition home or self-care (01) ==
PROVIDERS: Emergency Provider Emergency Medicine; PCP Family Medicine
DX: S00.83XA Contusion of other part of head, initial encounter (principal); S00.31XA Abrasion of nose, initial encounter; I10 Essential (primary) hypertension; R01.1 Cardiac murmur, unspecified; K21.9 Gastro-esophageal reflux disease without esophagitis; E78.5 Hyperlipidemia, unspecified; G89.29 Other chronic pain; K76.9 Liver disease, unspecified; M19.90 Unspecified osteoarthritis, unspecified site; J30.9 Allergic rhinitis, unspecified; Z79.1 Long term (current) use of non-steroidal anti-inflammatories (NSAID); Z79.51 Long term (current) use of inhaled steroids; Z79.899 Other long term (current) drug therapy; Z88.0 Allergy status to penicillin; Z88.5 Allergy status to narcotic agent; Z88.6 Allergy status to analgesic agent; Z88.8 Allergy status to other drugs, medicaments and biological substances; Z82.49 Family history of ischemic heart disease and other diseases of the circulatory system; W01.10XA Fall on same level from slipping, tripping and stumbling with subsequent striking against unspecified object, initial encounter
CPT/HCPCS: 70450; 70486; 72125; 73562; 99285

== ENCOUNTER → 2022-03-20 13:55 | Outpatient (CLI) | payer MEDICARE, SELFPAY | PROVIDERS: PCP Family Medicine; Visit Provider Ophthalmology | DX: Z01.812 Encounter for preprocedural laboratory examination (principal); Z20.822 Contact with and (suspected) exposure to COVID-19 | CPT/HCPCS: C9803; U0003; U0005 ==

== ENCOUNTER 2022-03-21 09:58 | Day surgery (SDC) | payer MEDICARE, SELFPAY ==
[2022-03-16 14:28] VITALS: BMI 25.2
[2022-03-21] VITALS (7 sets, daily range): BP systolic 167–199; BP diastolic 77–98; PULSE 56–69; RESP 18; TEMP 36.3–36.4; O2SAT 95–100
== END 2022-03-21 11:40 | disposition home or self-care (01) ==
LOC: OR 09:59
PROVIDERS: PCP Family Medicine; Visit Provider Ophthalmology
DX: H25.813 Combined forms of age-related cataract, bilateral (principal); M19.90 Unspecified osteoarthritis, unspecified site; E78.00 Pure hypercholesterolemia, unspecified
CPT/HCPCS: 66984; V2632

== ENCOUNTER → 2022-03-29 06:51 | Outpatient (CLI) | payer MEDICARE, SELFPAY ==
[2022-03-28 18:39] LABS: Alanine Aminotransferase 17 U/L (12-78); Albumin Level 3.6 g/dl (3.5-5.0); Albumin/Globulin Ratio 1.4 (1.1-1.8); Alkaline Phosphatase 116 U/L (38-126); Amylase 45 U/L (30-110); Aspartate Amino Transferase 30 U/L (14-36); Blood Urea Nitrogen 20 mg/dl (7-17); Calcium 10.3 mg/dl (8.4-10.2); Carbon Dioxide 31 mmol/L (22.0-30.0); Chloride 104 mmol/L (98-107); Estimated Glomerular Filt Rate 60 ml/min (>60); GFR (African American) 73 ML/MIN (>60); Globulin 2.5 g/dL (1.3-3.2); Glucose 94 mg/dl (74-100); Lipase 62 U/L (23-300); Sodium 138 mmol/L (136-145); Total Protein,Serum 6.1 g/dl (6.3-8.2)
[2022-03-28 19:33] LABS: Bilirubin,Total 0.1 mg/dl (0.2-1.3)
== END ==
PROVIDERS: PCP Family Medicine; Visit Provider Family Medicine
DX: R10.11 Right upper quadrant pain (principal)
CPT/HCPCS: 80053; 82150; 83690

== ENCOUNTER → 2022-04-01 10:55 | Outpatient (CLI) | payer MEDICARE, SELFPAY | PROVIDERS: PCP Family Medicine; Visit Provider Ophthalmology | DX: Z01.812 Encounter for preprocedural laboratory examination (principal); Z20.822 Contact with and (suspected) exposure to COVID-19 | CPT/HCPCS: C9803; U0003; U0005 ==

== ENCOUNTER 2022-04-04 08:42 | Day surgery (SDC) | payer MEDICARE, SELFPAY ==
[2022-03-30 16:21] VITALS: BMI 26.9
[2022-04-04] VITALS (11 sets, daily range): BP systolic 140–209; BP diastolic 79–97; PULSE 54–62; RESP 16–19; TEMP 36.1–36.2; O2SAT 96–100
== END 2022-04-04 11:20 | disposition home or self-care (01) ==
LOC: OR 08:44
PROVIDERS: PCP Family Medicine; Visit Provider Ophthalmology
DX: H25.811 Combined forms of age-related cataract, right eye (principal)
CPT/HCPCS: 66984; V2632

== ENCOUNTER → 2022-04-11 08:55 | Outpatient (CLI) | payer MEDICARE, MEDICAID, SELFPAY ==
--- NOTE | 2022-04-11 08:56 | US_ITS ---
FINAL REPORT CLINICAL HISTORY: RUQ pain FINDINGS: Sonographic images of the right upper quadrant were obtained. The pancreas is partially obscured.The liver has an unremarkable appearance. The portal vein is patent and has normal directional flow. The gallbladder is surgically absent. There is no evidence of biliary ductal dilatation.The common duct measures 5 mm. The right kidney measures 8.3 cm in length and is unremarkable. There is no mass or fluid collection seen in the palpable area in the right upper quadrant. IMPRESSION: Cholecystectomy, otherwise unremarkable right upper quadrant ultrasound. No mass or fluid collection in the palpable area in the right upper quadrant. Reviewed, Interpreted and Dictated by Jarrod Caldwell III, MD Transcribed by Mica Cortes Authenticated and [facility]
== END ==
PROVIDERS: PCP Family Medicine; Visit Provider Family Medicine
DX: R10.11 Right upper quadrant pain (principal)
CPT/HCPCS: 76705

== ENCOUNTER → 2022-04-25 07:02 | Outpatient (CLI) | payer MEDICARE, MEDICAID, SELFPAY ==
[2022-04-25 18:14] LABS: Alanine Aminotransferase 15 U/L (12-78); Albumin Level 3.6 g/dl (3.5-5.0); Albumin/Globulin Ratio 1.4 (1.1-1.8); Alkaline Phosphatase 122 U/L (38-126); Anion Gap 8.3 mEq/L (5-15); Aspartate Amino Transferase 28 U/L (14-36); Blood Urea Nitrogen 18 mg/dl (7-17); Calcium 10.3 mg/dl (8.4-10.2); Carbon Dioxide 34 mmol/L (22.0-30.0); Chloride 98 mmol/L (98-107); Estimated Glomerular Filt Rate 48 ml/min (>60); GFR (African American) 58 ML/MIN (>60); Globulin 2.5 g/dL (1.3-3.2); Glucose 99 mg/dl (74-100); Potassium 5.3 mmoL/L (3.5-5.1); Sodium 135 mmol/L (136-145); Total Protein,Serum 6.1 g/dl (6.3-8.2)
[2022-04-25 18:16] LABS: Bilirubin,Total < 0.1 mg/dl (0.2-1.3)
== END ==
PROVIDERS: PCP Family Medicine; Visit Provider Family Medicine
DX: E87.5 Hyperkalemia (principal)
CPT/HCPCS: 80053

== ENCOUNTER → 2022-05-26 10:55 | Outpatient (CLI) | payer MEDICARE, MEDICAID, SELFPAY ==
[2022-05-26 19:39] LABS: Alanine Aminotransferase 16 U/L (12-78); Albumin Level 3.7 g/dl (3.5-5.0); Albumin/Globulin Ratio 1.3 (1.1-1.8); Alkaline Phosphatase 125 U/L (38-126); Anion Gap 14.1 mEq/L (5-15); Aspartate Amino Transferase 28 U/L (14-36); Bilirubin,Total 0.2 mg/dl (0.2-1.3); Blood Urea Nitrogen 31 mg/dl (7-17); Calcium 10.6 mg/dl (8.4-10.2); Carbon Dioxide 31 mmol/L (22.0-30.0); Chloride 99 mmol/L (98-107); Estimated Glomerular Filt Rate 40 ml/min (>60); GFR (African American) 48 ML/MIN (>60); Globulin 2.8 g/dL (1.3-3.2); Glucose 90 mg/dl (74-100); Potassium 4.1 mmoL/L (3.5-5.1); Sodium 140 mmol/L (136-145); Total Protein,Serum 6.5 g/dl (6.3-8.2)
== END ==
PROVIDERS: PCP Family Medicine; Visit Provider Family Medicine
DX: E87.5 Hyperkalemia (principal)
CPT/HCPCS: 80053

== ENCOUNTER 2022-07-08 14:48 | Emergency (ER) | payer MEDICARE, MEDICAID, SELFPAY ==
[2022-07-08 14:57] VITALS: BMI 26.2
--- NOTE | 2022-07-08 14:58 | CT_ITS ---
PROCEDURE INFORMATION: Exam: CT Head Without Contrast Exam date and time: 07/08/2022 3:03 PM Age: 81 years old Clinical indication: Injury or trauma; Fall; Blunt trauma (contusions or hematomas) TECHNIQUE: Imaging protocol: Computed tomography of the head without contrast. Radiation optimization: All CT scans at this facility use at least one of these dose optimization techniques: automated exposure control; mA and/or kV adjustment per patient size (includes targeted exams where dose is matched to clinical indication); or iterative reconstruction. COMPARISON: CT HEAD/BRAIN WO CON 02/23/2022 3:37 PM FINDINGS: Brain: Age-related atrophy and chronic white matter ischemic changes, with no evidence of an acute intracranial abnormality. No hemorrhage, mass effect or midline shift. Cerebral ventricles: No ventriculomegaly. Paranasal sinuses: Visualized sinuses are unremarkable. No fluid levels. Mastoid air cells: Visualized mastoid air cells are well aerated. Bones/joints: No acute fracture. Soft tissues: No acute changes IMPRESSION: 1. Age-related atrophy and chronic white matter ischemic changes, with no evidence of an acute intracranial abnormality. 2. No hemorrhage, mass effect or midline shift.
--- NOTE | 2022-07-08 14:58 | XR_ITS ---
PROCEDURE INFORMATION: Exam: XR Left Knee Exam date and time: 07/08/2022 3:38 PM Age: 81 years old Clinical indication: Injury or trauma; Fall; Blunt trauma; Left; Patient HX: Prior knee replacement of both knees TECHNIQUE: Imaging protocol: Radiologic exam of the Left knee. Views: 3 views. COMPARISON: CR XR KNEE LT 2V 06/21/2021 4:18 PM FINDINGS: Bones/joints: Total left knee prosthesis appears intact and normally aligned with no findings of loosening or infection. No acute fracture or dislocation. Minimal knee joint fluid, no significant effusion visible. Soft tissues: Medial soft tissue swelling.No radiopaque foreign bodies seen. Some chronic dystrophic soft tissue calcifications suggested anteriorly, probably postoperative change. IMPRESSION: 1. No acute fracture or dislocation. 2. Total knee prosthesis appears intact and normally aligned. 3. Medial soft tissue swelling, correlate for sprain or contusion.
--- NOTE | 2022-07-08 14:58 | XR_ITS ---
PROCEDURE INFORMATION: Exam: XR Pelvis Exam date and time: 07/08/2022 3:13 PM Age: 81 years old Clinical indication: Injury or trauma; Fall; Blunt trauma (contusions or hematomas); Bilateral; Hip TECHNIQUE: Imaging protocol: Radiologic exam of the pelvis. Views: 1 or 2 view. COMPARISON: CT ABDOMEN PELVIS W CON 06/08/2021 7:20 PM FINDINGS: Tubes, catheters and devices: A stimulator device projected over the left flank. Bones/joints: Visualized lower lumbar fusion hardware appears grossly intact. There are bilateral sacroiliac arthrodesis screws which appear intact, though with chronic radiolucency surrounding the left-sided screw, present since the previous CT from 06/08/2021; this appears slightly more prominent on today's exam. There is new or increased radiolucency surrounding the right side screw. Findings suggest loosening of the screws. No surrounding lytic changes to confirm infection. No acute appearing fracture or dislocation of the pelvic bones. No significant arthritic changes at the hip joints, minimal bilateral hip joint space narrowing. Soft tissues: No acute findings in the soft tissues. IMPRESSION: 1. No acute fracture or dislocation. 2. Visualized lumbosacral fusion hardware appears intact, but there are radiolucencies surrounding the sacroiliac fixation screws suggesting mild loosening of hardware, which appears worsened compared with 06/08/2021.
--- NOTE | 2022-07-08 14:58 | CT_ITS ---
PROCEDURE INFORMATION: Exam: CT Cervical Spine Without Contrast Exam date and time: 07/08/2022 3:05 PM Age: 81 years old Clinical indication: Injury or trauma; Fall; Blunt trauma TECHNIQUE: Imaging protocol: Computed tomography of the cervical spine without contrast. Radiation optimization: All CT scans at this facility use at least one of these dose optimization techniques: automated exposure control; mA and/or kV adjustment per patient size (includes targeted exams where dose is matched to clinical indication); or iterative reconstruction. COMPARISON: CT CERVICAL SPINE WO CON 02/23/2022 3:44 PM FINDINGS: Bones/joints: There is a nonspecific reversal of the normal cervical lordosis. 4 mm anterolisthesis of C3 on C4. The cervical spine demonstrates moderate degenerative changes at multiple levels. Disc space narrowing and bilateral neural foraminal narrowing noted at C3-C4, C5-C6 and C6-C7. There is no evidence of acute fracture. Prevertebral and retropharyngeal spaces: No prevertebral soft tissue swelling is present. Lungs: Lung apices are normal. Vasculature: The vasculature demonstrates diffuse mild atherosclerotic calcification. Soft tissues: Unremarkable. IMPRESSION: 1. There is a nonspecific reversal of the normal cervical lordosis. 2. 4 mm anterolisthesis of C3 on C4. 3. The cervical spine demonstrates moderate degenerative changes at multiple levels. 4. No evidence of acute fracture.
--- NOTE | 2022-07-08 14:58 | XR_ITS ---
PROCEDURE INFORMATION: Exam: XR Chest Exam date and time: 07/08/2022 3:14 PM Age: 81 years old Clinical indication: Injury or trauma; Fall; Blunt trauma (contusions or hematomas) TECHNIQUE: Imaging protocol: Radiologic exam of the chest. Views: 2 views. COMPARISON: CR XR CHEST 2V 06/08/2019 9:56 PM FINDINGS: Lungs: Mild chronic pulmonary hyperinflation. Chronic calcified left pulmonary granuloma. No consolidation. No significant vascular congestion. Pleural spaces: Unremarkable. No significant pleural effusion. No pneumothorax. Heart/Mediastinum: Chronic enlarged cardiac silhouette. Bones/joints: Posterior metallic spinal fusion hardware extending from T6 downward through the visualized lumbar spine appears grossly intact, small radiolucencies within pedicle screws without definite displaced or angulated fragments. Spinal stimulator device in the spinal canal at T6-T7. Likely chronic vertebral compression fracture deformities, with vertebroplasty cement at T7, T10 and T11 as seen on prior CT. Osteopenia. Arthritis of the right acromioclavicular joint. No acute rib fractures, as visualized. T9-T10 disc space is obscured by overlying pedicle screws. IMPRESSION: 1. No acute cardiopulmonary findings. 2. Additional nonemergency and chronic findings as above.
--- NOTE | 2022-07-08 14:58 | CT_ITS ---
PROCEDURE INFORMATION: Exam: CT Thoracic Spine Without Contrast Exam date and time: 07/08/2022 3:08 PM Age: 81 years old Clinical indication: Injury or trauma; Fall; Blunt trauma (contusions or hematomas); Prior surgery; Surgery date: 6+ months; Surgery type: Had previous extensive tspine and lspine surgery with a carlos TECHNIQUE: Imaging protocol: Computed tomography of the thoracic spine without contrast. Radiation optimization: All CT scans at this facility use at least one of these dose optimization techniques: automated exposure control; mA and/or kV adjustment per patient size (includes targeted exams where dose is matched to clinical indication); or iterative reconstruction. COMPARISON: 1. CR XR CHEST 2V 06/08/2019 9:[address] CERVICAL SPINE WO CON 07/08/2022 3:05 PM FINDINGS: Bones/joints: Bones appear diffusely demineralized. Posterior spinal fusion hardware extending from T6 downward throughout thoracic and lumbar spine and into the sacroiliac joints. Question breakage of the distal tip of the right T8 pedicle screw sagittal series 1002, image 39, but no significant displacement. Some other radiolucencies within screws without definite breakage. Posterior rods appear intact. There are radiolucencies surrounding the left T10 pedicle screw which may be mild loosening of hardware, see sagittal series 1002, images 52-54, axial series 3, images 81 -82; also radiolucencies surrounding the distal right T10 pedicle screw within the vertebral body, sagittal series 1002, images 38 -40, and axial series 3, images 80 -83. This could be due to infection or loosening of the T10 hardware. Chronic anterior wedge deformities of T6 through T10, and of T12. Vertebroplasty cement in T7, T10 and T11 vertebral bodies. Severe multilevel degenerative disc disease with spondylosis. Destructive changes of the endplates at T9-T10 which could be old, versus active discitis, with prominent gas in the disc space. Vacuum phenomenon within T5-T6 and T6-T7 disc spaces appears more likely degenerative than infection with no acute lytic changes in the endplates. The central spinal canal is moderately stenotic at T10-T11 due to retropulsion of the upper T10 endplate. There also T9 neural foraminal stenoses, which appears moderately severe on the right sagittal series 1002, image 39, and at least moderate on the left on image 51. Mild narrowing of the spinal canal and neural foramina at other levels. No other high-grade stenosis. There is a spinal stimulator device, centered in the posterior spinal canal at T6-T7. Soft tissues: No definite paraspinous mass or loculated fluid collection, the study is slightly limited by metallic streak artifacts. Vasculature: Atherosclerotic plaques in the aorta, no aneurysm as visualized. Lungs: Dependent atelectasis in the visualized posterior lungs, no consolidation. IMPRESSION: 1. At T9-T10, there is moderate central spinal stenosis and moderate to moderately severe T9 foraminal stenoses; there are lytic destructive changes of the vertebral endplates with gas in the disc space and radiolucencies surrounding the pedicle screws; findings concerning for possible infected hardware and discitis/osteomyelitis, or loosening of hardware, though these may be chronic findings. No prior thoracic spine imaging studies are available to compare. Correlate clinically to exclude infection. 2. Possible breakage of the tip of the right T8 pedicle screw, but this is nondisplaced with no surrounding lytic changes in the bone. 3. Fusion hardware otherwise intact as visualized, from T6 through the sacrum. 4. Multiple chronic appearing vertebral compressi
[2022-07-08 15:00] VITALS: BP 154/75; PULSE 58; O2SAT 96
[2022-07-08 15:01] VITALS: BP 154/75; PULSE 59; RESP 18; TEMP 36.9; O2SAT 96; BMI 26.2
--- NOTE | 2022-07-08 15:04 | PC.NURSE ---
Pt to Rad
--- NOTE | 2022-07-08 15:19 | HMH.EDFALL ---
Discharge Plan Disposition Patient Disposition: Home, Self-Care Chief Complaint: Fall Prescriptions Prescriptions: No Action multivitamin tablet 1 tab PO DAILY cholecalciferol (vitamin D3) 2,000 unit capsule 2,000 unit PO DAILY coenzyme Q10 [Co Q-10] 200 mg capsule 200 mg PO DAILY pantoprazole 40 mg tablet,delayed release (DR/EC) 40 mg PO DAILY spironolactone 25 mg tablet 25 mg PO DAILY Qty: 30 2RF furosemide [Lasix] 40 mg tablet 40 mg PO DAILY Qty: 30 4RF etodolac 400 mg tablet 400 mg PO BID Qty: 60 3RF gabapentin 600 MG tablet 600 mg PO TID tramadol 50 MG tablet 50 mg PO Q6HP PRN (Reason: Moderate Pain) clonidine HCl 0.2 mg tablet 0.2 mg PO HS PRN (Reason: Hypertension) omega-3 fatty acids-fish oil 1 EACH capsule 1 each PO DAILY cyanocobalamin (vitamin B-12) 5,000 MCG tablet,disintegrating 500 mcg PO DAILY Referrals Follow up/Referrals: Rizwana Baird MD [Primary Care Provider] - See instructions Clinical Impressions Clinical Impression: Chronic back pain, Concussion without loss of consciousness, Concussion, Pain in thoracic spine at multiple sites Instructions Patient Instructions: DI for Concussion Discharge ED Provider: Sabino Tee Fall [facility] General Chief Complaint: Fall Stated Complaint: Fell 07/05@home hit head, NEWELL, vision blurred Time Seen by Provider: 07/08/22 15:19 Mode of Arrival: Wheelchair Source of Information: Patient, Relative and Medical Record Limitations: No Limitations Description of Symptoms (Recalled from ER Triage Doc. by RN): Pt states that she fell on Sunday when her walker slipped out from under her. Advises that she hit the rt side of her head. C/O NEWELL and left knee pain since. Pt c/o neck soreness upon palpation during exam History of Present Illness HPI Narrative: trip type fall a few days ago with head and neck and upper back pain persistent since - no loc and focal neuro sx complaint: fall Onset (ago): day(s) Fall from: walking Fall witnessed: yes, by family Place fall occurred: home Loss of consciousness: none Prolonged down time: no Context: tripped/slipped Location of injury: head and neck Severity: moderate Associated symptoms (after fall): denies Related Data Home Medications Medication Instructions Recorded Confirmed cholecalciferol (vitamin D3) 50 2,000 unit PO DAILY Supplement 03/19/18 05/26/22 mcg (2,000 unit) capsule multivitamin 1 tab PO DAILY Supplement 03/19/18 05/26/22 gabapentin 600 mg tablet 600 mg PO TID Pain 11/16/18 05/26/22 tramadol 50 mg tablet 50 mg PO Q6HP PRN Moderate Pain 11/16/18 05/26/22 cyanocobalamin (vitamin B-12) 500 mcg PO DAILY Supplement 03/16/22 05/26/22 5,000 mcg disintegrating tablet omega-3 fatty acids-fish oil 340 1 each PO DAILY Supplement 03/16/22 05/26/22 mg-1,000 mg capsule clonidine HCl 0.2 mg tablet 0.2 mg PO HS PRN Hypertension 04/25/22 05/26/22 coenzyme Q10 200 mg capsule (Co 200 mg PO DAILY 04/25/22 05/26/22 Q-10) pantoprazole 40 mg tablet,delayed 40 mg PO DAILY 05/26/22 05/26/22 release Previous Rx's Medication Instructions Recorded spironolactone 25 mg tablet 25 mg PO DAILY hypertension #30 04/18/22 tabs furosemide 40 mg tablet (Lasix) 40 mg PO DAILY Fluid #30 tabs 05/12/22 etodolac 400 mg tablet 400 mg PO BID #60 tabs 06/05/22 Allergies Allergy/AdvReac Type Severity Reaction Status Date / Time acetaminophen [From PERCOCET] Allergy Mild Verified 04/25/22 10:49 codeine [CODEINE] Allergy Mild Verified 04/25/22 10:49 cyclobenzaprine Allergy Mild Verified 04/25/22 10:49 [From Flexeril] morphine [MORPHINE] Allergy Mild Verified 04/25/22 10:49 oxycodone [From PERCOCET] Allergy Mild Verified 04/25/22 10:49 penicillin G [PENICILLIN G] Allergy Mild Verified 04/25/22 10:49 loratadine [From CLARITIN] Allergy Unknown Verified 04/25/22 10:49 meperidine [From Demerol] AdvReac Mild Verified 04/25/22
--- NOTE | 2022-07-08 15:31 | PC.NURSE ---
Pt has returned from rad. Hooked back up to monitor. Sitting in w/c with daughter in room.
[2022-07-08 16:01] VITALS: BP 174/88; PULSE 61; RESP 20; O2SAT 96
[2022-07-08 16:56] VITALS: BP 151/78; PULSE 61; RESP 18; O2SAT 96
[2022-07-08 17:24] VITALS: BP 155/79; PULSE 60; RESP 18; TEMP 36.9; O2SAT 97
== END 2022-07-08 17:24 | disposition home or self-care (01) ==
PROVIDERS: Emergency Provider Emergency Medicine; PCP Family Medicine
DX: M54.6 Pain in thoracic spine (principal); M54.2 Cervicalgia; M25.561 Pain in right knee; S06.0XAA Concussion with loss of consciousness status unknown, initial encounter; H53.8 Other visual disturbances; R51.9 Headache, unspecified; I10 Essential (primary) hypertension; G89.29 Other chronic pain; W01.10XA Fall on same level from slipping, tripping and stumbling with subsequent striking against unspecified object, initial encounter; Z88.0 Allergy status to penicillin; Z88.5 Allergy status to narcotic agent; Z88.6 Allergy status to analgesic agent
CPT/HCPCS: 70450; 71046; 72125; 72128; 72170; 73562; 99285

== ENCOUNTER 2022-07-16 09:39 | Emergency (ER) | payer MEDICARE, SELFPAY ==
[2022-07-16] VITALS (9 sets, daily range): BP systolic 128–176; BP diastolic 60–79; PULSE 51–59; RESP 17–20; TEMP 37.2; O2SAT 93–98; BMI 27.6
--- NOTE | 2022-07-16 10:16 | CT_ITS ---
PROCEDURE INFORMATION: Exam: CT Head Without Contrast Exam date and time: 07/16/2022 11:17 AM Age: 81 years old Clinical indication: Altered mental status/memory loss and dizziness; Confusion or disorientation; Additional info: Concern for intracranial hemorrhage TECHNIQUE: Imaging protocol: Computed tomography of the head without contrast. Radiation optimization: All CT scans at this facility use at least one of these dose optimization techniques: automated exposure control; mA and/or kV adjustment per patient size (includes targeted exams where dose is matched to clinical indication); or iterative reconstruction. 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 No CT evidence of acute ischemia. No acute hemorrhage. No mass effect. Cerebral ventricles: No ventriculomegaly. Paranasal sinuses: Visualized sinuses are unremarkable. No fluid levels. Mastoid air cells: Visualized mastoid air cells are well aerated. Orbital cavities: Bilateral lens extractions. Bones/joints: Unremarkable. No acute fracture. Soft tissues: Unremarkable. IMPRESSION: No acute intracranial abnormality. Please note that MRI is more sensitive for early changes of acute ischemia.
--- NOTE | 2022-07-16 10:17 | HMH.EDGENADL ---
Discharge Plan Disposition Patient Disposition: Home, Self-Care Condition: Fair Chief Complaint: Weakness Prescriptions Prescriptions: No Action multivitamin tablet 1 tab PO DAILY cholecalciferol (vitamin D3) 2,000 unit capsule 2,000 unit PO DAILY coenzyme Q10 [Co Q-10] 200 mg capsule 200 mg PO DAILY pantoprazole 40 mg tablet,delayed release (DR/EC) 40 mg PO DAILY spironolactone 25 mg tablet 25 mg PO DAILY Qty: 30 2RF furosemide [Lasix] 40 mg tablet 40 mg PO DAILY Qty: 30 4RF etodolac 400 mg tablet 400 mg PO BID Qty: 60 3RF gabapentin 600 MG tablet 600 mg PO TID tramadol 50 MG tablet 50 mg PO Q6HP PRN (Reason: Moderate Pain) clonidine HCl 0.2 mg tablet 0.2 mg PO HS PRN (Reason: Hypertension) omega-3 fatty acids-fish oil 1 EACH capsule 1 each PO DAILY cyanocobalamin (vitamin B-12) 5,000 MCG tablet,disintegrating 500 mcg PO DAILY Referrals Follow up/Referrals: Rizwana Baird MD [Primary Care Provider] - See instructions Clinical Impressions Clinical Impression: EVA (acute kidney injury), Hypercalcemia, Post concussion syndrome Instructions Patient Instructions: DI for Concussion, Acute Kidney Injury Discharge ED Provider: Braydon Hodgson General Adult HPI General Chief complaint: Weakness Stated complaint: [id number] headache,can't walk,jerking Time Seen by Provider: 07/16/22 10:10 History of Present Illness HPI narrative: Patient is a 81-year-old female with multiple past medical problems who presents with a concern for multiple complaints. She says that she had a fall on 07/05 and was evaluated in the emergency department and ultimately diagnosed with a concussion. She says that since then she has had progressively worsening difficulties with walking. She says that she feels like her knees are giving out. She also complains of some random jerking movements. She says that she has had persistent headache since the fall. She says that it seems to be affecting her vision. She does note some numbness that goes down into her left upper extremity. Denies any bowel or bladder incontinence. Denies any saddle anesthesia. She says that the headache feels like a band over her head. Then it seems to go back down her neck. Related Data Home Medications Medication Instructions Recorded Confirmed cholecalciferol (vitamin D3) 50 2,000 unit PO DAILY Supplement 03/19/18 05/26/22 mcg (2,000 unit) capsule multivitamin 1 tab PO DAILY Supplement 03/19/18 05/26/22 gabapentin 600 mg tablet 600 mg PO TID Pain 11/16/18 05/26/22 tramadol 50 mg tablet 50 mg PO Q6HP PRN Moderate Pain 11/16/18 05/26/22 cyanocobalamin (vitamin B-12) 500 mcg PO DAILY Supplement 03/16/22 05/26/22 5,000 mcg disintegrating tablet omega-3 fatty acids-fish oil 340 1 each PO DAILY Supplement 03/16/22 05/26/22 mg-1,000 mg capsule clonidine HCl 0.2 mg tablet 0.2 mg PO HS PRN Hypertension 04/25/22 05/26/22 coenzyme Q10 200 mg capsule (Co 200 mg PO DAILY 04/25/22 05/26/22 Q-10) pantoprazole 40 mg tablet,delayed 40 mg PO DAILY 05/26/22 05/26/22 release Previous Rx's Medication Instructions Recorded spironolactone 25 mg tablet 25 mg PO DAILY hypertension #30 04/18/22 tabs furosemide 40 mg tablet (Lasix) 40 mg PO DAILY Fluid #30 tabs 05/12/22 etodolac 400 mg tablet 400 mg PO BID #60 tabs 06/05/22 Allergies Allergy/AdvReac Type Severity Reaction Status Date / Time acetaminophen [From PERCOCET] Allergy Mild Verified 04/25/22 10:49 codeine [CODEINE] Allergy Mild Verified 04/25/22 10:49 cyclobenzaprine Allergy Mild Verified 04/25/22 10:49 [From Flexeril] morphine [MORPHINE] Allergy Mild Verified 04/25/22 10:49 oxycodone [From PERCOCET] Allergy Mild Verified 04/25/22 10:49 penicillin G [PENICILLIN G] Allergy Mild Verified 04/25/22 10:49 loratadine [From CLARITIN] Allergy Unknown Verified 04/25/22 10:49 meperidine [From Demerol] AdvReac
--- NOTE | 2022-07-16 10:22 | PC.NURSE ---
Pt to rad via w/c
--- NOTE | 2022-07-16 10:26 | PC.NURSE ---
Pt returned from rad.
[2022-07-16 11:08] LABS: Basophils # 0.1 K/mm3 (0-0.2); Basophils % 1.1 % (0.1-2.0); Eosinophils # 0.1 K/mm3 (0.0-0.4); Eosinophils % 2.1 % (0.1-12.0); Hematocrit 40.5 % (37.0-47.0); Lymphocytes # 1.4 K/mm3 (0.7-4.5); Mean Corpuscular Hemoglobin 32.1 pg (27.0-31.2); Mean Corpuscular Volume 100.3 fl (81-99); Mean Platelet Volume 7.7 fl (7.4-10.4); Monocytes # 0.4 K/mm3 (0.1-1.0); Monocytes % 7.3 % (1.7-9.3); Neutrophils # 3.5 K/mm3 (1.8-7.8); Neutrophils % 64.5 % (37.0-80.0); Platelet Count 242 K/mm3 (142-424); Red Blood Count 4.04 M/mm3 (4.20-5.40); Red Cell Distribution Width 13.5 % (11.5-17.5); White Blood Count 5.5 K/mm3 (4.8-10.8)
[2022-07-16 11:12] LABS: Chloride 99 mmol/L (98-107)
[2022-07-16 11:13] LABS: Potassium 3.1 mmoL/L (3.5-5.1); Sodium 141 mmol/L (136-145)
[2022-07-16 11:15] LABS: Alanine Aminotransferase 16 U/L (12-78); Aspartate Amino Transferase 35 U/L (14-36); Blood Urea Nitrogen 42 mg/dl (7-17); Creatinine Clearance Estimated 25 mL/min (50-200); Estimated Glomerular Filt Rate 24 ml/min (>60); GFR (African American) 29 ML/MIN (>60)
[2022-07-16 11:16] LABS: Albumin Level 3.8 g/dl (3.5-5.0); Albumin/Globulin Ratio 1.4 (1.1-1.8); Alkaline Phosphatase 111 U/L (38-126); Anion Gap 11.1 mEq/L (5-15); Bilirubin,Total 0.5 mg/dl (0.2-1.3); Carbon Dioxide 34 mmol/L (22.0-30.0); Globulin 2.8 g/dL (1.3-3.2); Glucose 89 mg/dl (74-100); Total Protein,Serum 6.6 g/dl (6.3-8.2)
[2022-07-16 11:17] LABS: Magnesium 2.3 mg/dl (1.6-2.3)
[2022-07-16 11:18] LABS: Calcium 12.1 mg/dl (8.4-10.2)
--- NOTE | 2022-07-16 11:19 | PC.NURSE ---
aware of calcium
[2022-07-16 12:33] LABS: Erythrocyte Sedimentation Rate 31 mm/hr (0-30)
[2022-07-16 12:51] LABS: Chloride 98 mmol/L (98-107); Potassium 3.2 mmoL/L (3.5-5.1); Sodium 139 mmol/L (136-145)
[2022-07-16 12:54] LABS: Anion Gap 13.2 mEq/L (5-15); Blood Urea Nitrogen 41 mg/dl (7-17); Calcium 11.9 mg/dl (8.4-10.2); Carbon Dioxide 31 mmol/L (22.0-30.0); Creatinine Clearance Estimated 27 mL/min (50-200); Estimated Glomerular Filt Rate 26 ml/min (>60); GFR (African American) 31 ML/MIN (>60); Glucose 85 mg/dl (74-100)
[2022-07-16 14:11] LABS: C-Reactive Protein 3.4 mg/L (0-4)
== END 2022-07-16 13:44 | disposition home or self-care (01) ==
PROVIDERS: Emergency Provider Student in an Organized Health Care Education/Training Program; PCP Family Medicine
DX: R51.9 Headache, unspecified (principal); R53.1 Weakness; I10 Essential (primary) hypertension; N17.9 Acute kidney failure, unspecified; R20.2 Paresthesia of skin; E83.52 Hypercalcemia; Z79.1 Long term (current) use of non-steroidal anti-inflammatories (NSAID); Z79.899 Other long term (current) drug therapy; Z88.0 Allergy status to penicillin; Z88.5 Allergy status to narcotic agent; Z88.6 Allergy status to analgesic agent; Z88.8 Allergy status to other drugs, medicaments and biological substances
CPT/HCPCS: 36415; 70450; 80048; 80053; 83735; 85025; 85651; 86140; 96361; 96374; 96375; 99285

== ENCOUNTER → 2022-07-18 11:03 | Outpatient (CLI) | payer MEDICARE, SELFPAY ==
[2022-07-18 18:59] LABS: Alanine Aminotransferase 16 U/L (12-78); Albumin Level 3.7 g/dl (3.5-5.0); Albumin/Globulin Ratio 1.5 (1.1-1.8); Alkaline Phosphatase 125 U/L (38-126); Anion Gap 15.2 mEq/L (5-15); Aspartate Amino Transferase 29 U/L (14-36); Bilirubin,Total 0.3 mg/dl (0.2-1.3); Blood Urea Nitrogen 40 mg/dl (7-17); Calcium 11.1 mg/dl (8.4-10.2); Carbon Dioxide 31 mmol/L (22.0-30.0); Chloride 99 mmol/L (98-107); Estimated Glomerular Filt Rate 31 ml/min (>60); GFR (African American) 38 ML/MIN (>60); Globulin 2.5 g/dL (1.3-3.2); Glucose 116 mg/dl (74-100); Potassium 3.2 mmoL/L (3.5-5.1); Sodium 142 mmol/L (136-145); Total Protein,Serum 6.2 g/dl (6.3-8.2)
== END ==
PROVIDERS: PCP Nurse Practitioner; Visit Provider Nurse Practitioner
DX: E83.52 Hypercalcemia (principal); E87.6 Hypokalemia; N17.9 Acute kidney failure, unspecified
CPT/HCPCS: 80053

== ENCOUNTER → 2022-07-25 11:45 | Outpatient (CLI) | payer MEDICARE, SELFPAY ==
[2022-07-25 18:43] LABS: Chloride 102 mmol/L (98-107); Potassium 4.3 mmoL/L (3.5-5.1); Sodium 141 mmol/L (136-145)
[2022-07-25 18:45] LABS: Alanine Aminotransferase 15 U/L (12-78); Alkaline Phosphatase 117 U/L (38-126); Aspartate Amino Transferase 44 U/L (14-36); Bilirubin,Total 0.9 mg/dl (0.2-1.3); Blood Urea Nitrogen 23 mg/dl (7-17); Estimated Glomerular Filt Rate 39 ml/min (>60); GFR (African American) 48 ML/MIN (>60)
[2022-07-25 18:46] LABS: Albumin Level 3.8 g/dl (3.5-5.0); Albumin/Globulin Ratio 1.4 (1.1-1.8); Anion Gap 15.3 mEq/L (5-15); Calcium 9.8 mg/dl (8.4-10.2); Carbon Dioxide 28 mmol/L (22.0-30.0); Globulin 2.7 g/dL (1.3-3.2); Glucose 84 mg/dl (74-100); Total Protein,Serum 6.5 g/dl (6.3-8.2)
== END ==
PROVIDERS: PCP Nurse Practitioner; Visit Provider Nurse Practitioner
DX: E83.52 Hypercalcemia (principal); E87.6 Hypokalemia; N17.9 Acute kidney failure, unspecified
CPT/HCPCS: 80053

== ENCOUNTER 2022-08-01 21:35 | Observation (INO) | payer MEDICARE, SELFPAY ==
[2022-08-01 21:37] VITALS: BP 214/88; PULSE 52; RESP 16; TEMP 36.8; O2SAT 96; BMI 25.8
--- NOTE | 2022-08-01 21:58 | XR_ITS ---
PROCEDURE INFORMATION: Exam: XR Chest Exam date and time: 08/01/2022 10:40 PM Age: 82 years old Clinical indication: Other: Weakness; Prior surgery TECHNIQUE: Imaging protocol: Radiologic exam of the chest. Views: 1 view. COMPARISON: CR XR CHEST 2V 07/08/2022 3:14 PM FINDINGS: Lungs: Unremarkable. No consolidation. Pleural spaces: Unremarkable. No pleural effusion. No pneumothorax. Heart/Mediastinum: Unremarkable. No cardiomegaly. Bones/joints: Extensive spinal hardware noted. IMPRESSION: No acute cardiopulmonary abnormality.
--- NOTE | 2022-08-01 22:00 | ECG_ITS ---
APPROVED REPORT Exam: Resting ECG HR:46 bpm ECG Measurements Heart Rate 46 AXES HI 176 P 67 QRSd 95 QRS -9 QT 399 T 19 QTc 357 Conclusion Sinus Bradycardia with marked artifact limiting interpretation UNCONFIRMED REPORT Electronically signed by : Dung Garcia MD 08/03/2022 20:13:49
--- NOTE | 2022-08-01 22:02 | CT_ITS ---
PROCEDURE INFORMATION: Exam: CT Abdomen And Pelvis Without Contrast Exam date and time: 08/01/2022 10:25 PM Age: 82 years old Clinical indication: Abdominal pain; Generalized; Additional info: Abd pain TECHNIQUE: Imaging protocol: Computed tomography of the abdomen and pelvis without contrast. Radiation optimization: All CT scans at this facility use at least one of these dose optimization techniques: automated exposure control; mA and/or kV adjustment per patient size (includes targeted exams where dose is matched to clinical indication); or iterative reconstruction. COMPARISON: CT ABDOMEN PELVIS W CON 06/08/2021 7:20 PM FINDINGS: Lungs: Clear basilar lung parenchyma. Pleural spaces: No pleural fluid. Heart: Mild cardiomegaly. Minimal coronary artery calcification. Small left ventricular apical aneurysm. Liver: Normal configuration. Homogeneous parenchyma. Gallbladder and bile ducts: Prior cholecystectomy. No biliary tree dilation or high-density retained stones appreciated. Pancreas: Normal. No ductal dilation. Spleen: Scattered splenic calcifications. Adrenal glands: Normal configuration. Kidneys and ureters: No visible renal obstruction or inflammation. Stomach and bowel: There is diverticulosis in the distal colon without evidence of acute diverticulitis. Moderate fecal debris is noted throughout the colon which may reflect constipation. Appendix: Normal appendix is confirmed. Intraperitoneal space: No free air. No significant fluid collection. Vasculature: Normal caliber arterial structures. Lymph nodes: No enlarged lymph nodes. Urinary bladder: Unremarkable as visualized. Reproductive: Features of prior hysterectomy noted. No evidence of vaginal cuff or adnexal mass. Bones/joints: Prior fusion procedure with extensive hardware extends from the lower thoracic spine to the sacrum. There is severe bony demineralization. Lucencies surrounding the left sacral screw may reflect loosening. There is also minimal lucency surrounding the right sacral screw which may reflect proximal loosening. There is a pedicle screw extending into the T9-10 disc space with vacuum disc phenomenon. Soft tissues: Unremarkable. IMPRESSION: 1. There is moderate fecal debris throughout the colon which may reflect constipation which be symptomatic. Otherwise, no acute abnormality. No urolithiasis. Normal appendix is. 2. Extensive spinal fusion construct extends from the thoracic spine to the sacrum. There is lucency surrounding the left sacral screw and a small portion of the right sacral screw suggesting loosening.
[2022-08-01 22:07] LABS: Basophils # 0.1 K/mm3 (0-0.2); Basophils % 1.3 % (0.1-2.0); Eosinophils # 0.3 K/mm3 (0.0-0.4); Eosinophils % 4.3 % (0.1-12.0); Hematocrit 45.2 % (37.0-47.0); Lymphocytes % 26.2 % (10-50); Mean Corpuscular HGB Conc 33.1 g/dL (31.8-35.4); Mean Corpuscular Volume 96.8 fl (81-99); Mean Platelet Volume 8.2 fl (7.4-10.4); Monocytes # 0.4 K/mm3 (0.1-1.0); Monocytes % 5.5 % (1.7-9.3); Neutrophils # 4.7 K/mm3 (1.8-7.8); Neutrophils % 62.7 % (37.0-80.0); Platelet Count 340 K/mm3 (142-424); Red Blood Count 4.67 M/mm3 (4.20-5.40); Red Cell Distribution Width 13.8 % (11.5-17.5); White Blood Count 7.5 K/mm3 (4.8-10.8)
[2022-08-01 22:10] LABS: Chloride 99 mmol/L (98-107)
[2022-08-01 22:11] LABS: Potassium 4.3 mmoL/L (3.5-5.1); Sodium 137 mmol/L (136-145)
[2022-08-01 22:13] LABS: Alanine Aminotransferase 16 U/L (12-78); Alkaline Phosphatase 140 U/L (38-126); Amylase 48 U/L (30-110); Anion Gap 7.3 mEq/L (5-15); Aspartate Amino Transferase 30 U/L (14-36); Bilirubin,Total 0.7 mg/dl (0.2-1.3); Blood Urea Nitrogen 31 mg/dl (7-17); Carbon Dioxide 35 mmol/L (22.0-30.0); Creatinine Clearance Estimated 19 mL/min (50-200); Estimated Glomerular Filt Rate 19 ml/min (>60); GFR (African American) 22 ML/MIN (>60)
[2022-08-01 22:14] LABS: Albumin Level 4.6 g/dl (3.5-5.0); Albumin/Globulin Ratio 1.3 (1.1-1.8); Globulin 3.5 g/dL (1.3-3.2); Glucose 107 mg/dl (74-100); Lipase 28 U/L (23-300); Total Protein,Serum 8.1 g/dl (6.3-8.2)
[2022-08-01 22:17] LABS: Lactic Acid 1.1 mmol/L (0.7-2.1)
[2022-08-01 22:40] LABS: Erythrocyte Sedimentation Rate 27 mm/hr (0-30)
[2022-08-01 22:45] LABS: C-Reactive Protein 7.4 mg/L (0-4)
[2022-08-01 22:52] VITALS: BP 230/139; PULSE 53; O2SAT 99
[2022-08-01 22:52] LABS: Troponin I 0.02 ng/ml (0.00-0.034)
[2022-08-01 22:53] LABS: Microscopic, Urine URINE MICROSCOPIC (MICROSCOPIC)
[2022-08-01 22:53] LABS: Calcium 16.6 mg/dl (8.4-10.2)
--- NOTE | 2022-08-01 22:54 | HMH.EDWEAK ---
Discharge Plan Disposition Patient Disposition: Admitted as Observation Chief Complaint: Weakness Clinical Impressions Clinical Impression: Hypercalcemia, EVA (acute kidney injury) Discharge ED Provider: Sabino Tee Weakness HPI General Chief complaint: Weakness Stated complaint: Nausea, Congestion Time Seen by Provider: 08/01/22 22:54 Mode of Arrival: Wheelchair Source of Information: Patient and Medical Record Limitations: No Limitations Description of Symptoms (Recalled from ER Triage Doc. by RN): pt c/o increasing weakness over several days, nauesous and abd pain History of Present Illness HPI Narrative: pt with acute weakness myles in lower ext with nausea and dec po intake - no vomiting or diarrhea - no known cancer - pt does use otc supplements - pt has no fall reported MD Complaint: generalized weakness Onset (ago): day(s) Duration: intermittent Location: generalized Severity: moderate Associated symptoms: loss of appetite and nausea/vomiting Related Data Home Medications Medication Instructions Recorded Confirmed cholecalciferol (vitamin D3) 50 2,000 unit PO DAILY Supplement 03/19/18 08/01/22 mcg (2,000 unit) capsule multivitamin 1 tab PO DAILY Supplement 03/19/18 08/01/22 gabapentin 600 mg tablet 600 mg PO TID Pain 11/16/18 08/01/22 tramadol 50 mg tablet 50 mg PO Q6HP PRN Moderate Pain 11/16/18 08/01/22 cyanocobalamin (vitamin B-12) 500 mcg PO DAILY Supplement 03/16/22 08/01/22 5,000 mcg disintegrating tablet omega-3 fatty acids-fish oil 340 1 each PO DAILY Supplement 03/16/22 08/01/22 mg-1,000 mg capsule clonidine HCl 0.2 mg tablet 0.2 mg PO HS PRN Hypertension 04/25/22 08/01/22 coenzyme Q10 200 mg capsule (Co 200 mg PO DAILY Supplement 04/25/22 08/01/22 Q-10) etodolac 400 mg tablet 400 mg PO BID . 08/01/22 08/01/22 pantoprazole 40 mg tablet,delayed 40 mg PO DAILY GERD 08/01/22 08/01/22 release Previous Rx's Medication Instructions Recorded spironolactone 25 mg tablet 25 mg PO DAILY hypertension #30 04/18/22 tabs furosemide 40 mg tablet (Lasix) 40 mg PO DAILY Fluid #30 tabs 05/12/22 Allergies Allergy/AdvReac Type Severity Reaction Status Date / Time acetaminophen [From PERCOCET] Allergy Mild Verified 07/25/22 11:22 codeine [CODEINE] Allergy Mild Verified 07/25/22 11:22 cyclobenzaprine Allergy Mild Verified 07/25/22 11:22 [From Flexeril] morphine [MORPHINE] Allergy Mild Verified 07/25/22 11:22 oxycodone [From PERCOCET] Allergy Mild Verified 07/25/22 11:22 penicillin G [PENICILLIN G] Allergy Mild Verified 07/25/22 11:22 loratadine [From CLARITIN] Allergy Unknown Verified 07/25/22 11:22 meperidine [From Demerol] AdvReac Mild Verified 07/25/22 11:22 simvastatin [From Zocor] AdvReac Mild Verified 07/25/22 11:22 PFSH PFSH Medical History Dependent on walker for ambulation Fall at home Social History Smoking Status: Never smoker second hand exposure: No alcohol intake: never substance use type: denies use current occupational status: retired and other Travel in the last 8 weeks: None household members: children housing: house current occupational exposures/hazards: No caffeine: Yes ROS Obtained: Yes All systems reviewed & no additional complaints except as documented Physical Exam General General appearance: alert Head Head exam: normocephalic Eye Eye exam: Present PERRL and EOMI; Absent scleral icterus ENT ENT exam: Present mucous membranes dry Neck Neck exam: Present trachea midline Respiratory Respiratory exam: Present normal lung sounds bilaterally; Absent respiratory distress Cardiovascular Cardiovascular exam: Present regular rate, systolic murmur and +S4 Abdominal Exam Abdominal exam: Present soft; Absent tenderness or guarding Extremities Exam Extremities exam: Present edema Neurological Exam Neurological exam:
[2022-08-01 22:57] LABS: Procalcitonin 0.072 ng/mL (0.0-2.0)
[2022-08-01 23:19] LABS: Appearance,Urine CLEAR (Clear); Blood, Urine Negative (Negative); Color,Urine YELLOW (Yellow); Glucose,Urine (UA) Negative (Negative); Ketones,Urine 1+ (Negative); Leukocyte Esterase,Urine Negative (Negative); Nitrate,Urine Negative (Negative); Protein,Urine 1+ (Negative); Specific Gravity, Urine >= 1.030 (1.005-1.030)
--- NOTE | 2022-08-01 23:19 | PC.NURSE ---
paged Dr. Garcia to admit for Dr. Baird.
[2022-08-01 23:32] LABS: Coronavirus 19, PCR Not Detected (NotDetected); Influenza A, PCR Not Detected (NotDetected); Influenza B, PCR Not Detected (NotDetected)
[2022-08-01 23:40] LABS: Bilirubin,Urine Negative (Negative)
[2022-08-01 23:44] LABS: Bacteria,Urine 1+ /lpf; RBC,Urine Occasional #/hpf (0-3)
[2022-08-01 23:44] LABS: Magnesium 2.9 mg/dl (1.6-2.3)
[2022-08-01 23:59] LABS: 25-OH Vitamin D, Total 90.9 ng/mL (30-100)
[2022-08-02] VITALS (16 sets, daily range): BP systolic 112–185; BP diastolic 52–76; PULSE 40–80; RESP 16–18; TEMP 36.4–36.8; O2SAT 90–100; BMI 27.8
--- NOTE | 2022-08-02 | PC.NURSE ---
Dr Tee left v/m for Dr Garcia
[2022-08-02 00:06] LABS: Intact Parathyroid Hormone 8.7 pg/mL (7.5-53.5)
[2022-08-02 00:16] LABS: Thyroid Stimulating Hormone 2.45 uIU/mL (0.465-4.68)
--- NOTE | 2022-08-02 00:20 | PC.NURSE ---
Dr. Tee called Dr. Aleman for admit, agrees. tunnel form placing supervisor notified
--- NOTE | 2022-08-02 01:19 | PC.NURSE ---
pt arrived to floor via wheelchair @ 0117.
--- NOTE | 2022-08-02 01:20 | PC.NURSE ---
pt unable to provide medication list and unsure the names of her meds, medication list and medical history obtained from medical record, last office visit note from 07/25/22, pts family helps her with meds and doctors visits.
--- NOTE | 2022-08-02 03:36 | PC.NURSE ---
noted vital signs documentation pt with HR 42, pt placed on telemetry at this time.
--- NOTE | 2022-08-02 06:28 | ECG_ITS ---
APPROVED REPORT Exam: Resting ECG HR:36 bpm ECG Measurements Heart Rate 36 AXES NH 361 P -87 QRSd 104 QRS 29 QT 445 T 15 QTc 356 Conclusion Sinus bradycardia with marked electrical arfiact noted. Limits interpretation ABNORMAL ECG UNCONFIRMED REPORT Electronically signed by : Dung Garcia MD 08/03/2022 20:12:28
[2022-08-02 06:33] LABS: Basophils # 0.1 K/mm3 (0-0.2); Basophils % 0.9 % (0.1-2.0); Lymphocytes # 1.5 K/mm3 (0.7-4.5); Mean Platelet Volume 8.4 fl (7.4-10.4); Monocytes # 0.3 K/mm3 (0.1-1.0); Neutrophils % 60.4 % (37.0-80.0)
--- NOTE | 2022-08-02 06:35 | PC.NURSE ---
noted pt HR consistently staying in the uppers 30's, pt is asymptomatic, pt is sleeping, ekg was obtained and sent to ER by warehouse lead to read, dr donaldson was paged to inform. no acute distress noted, pt states she feels fine.
[2022-08-02 06:41] LABS: Alanine Aminotransferase 11 U/L (12-78); Albumin Level 3.2 g/dl (3.5-5.0); Albumin/Globulin Ratio 1.3 (1.1-1.8); Alkaline Phosphatase 111 U/L (38-126); Aspartate Amino Transferase 22 U/L (14-36); Bilirubin,Total 0.4 mg/dl (0.2-1.3); Blood Urea Nitrogen 31 mg/dl (7-17); Carbon Dioxide 31 mmol/L (22.0-30.0); Chloride 99 mmol/L (98-107); Creatinine Clearance Estimated 20 mL/min (50-200); Estimated Glomerular Filt Rate 19 ml/min (>60); GFR (African American) 22 ML/MIN (>60); Globulin 2.4 g/dL (1.3-3.2); Glucose 100 mg/dl (74-100); Potassium 3.8 mmoL/L (3.5-5.1); Total Protein,Serum 5.6 g/dl (6.3-8.2)
[2022-08-02 06:49] LABS: Eosinophils # 0.3 K/mm3 (0.0-0.4); Eosinophils % 4.8 % (0.1-12.0); Hematocrit 37.1 % (37.0-47.0); Lymphocytes % 28.8 % (10-50); Mean Corpuscular HGB Conc 32.5 g/dL (31.8-35.4); Mean Corpuscular Hemoglobin 32.2 pg (27.0-31.2); Mean Corpuscular Volume 99.1 fl (81-99); Monocytes % 5.1 % (1.7-9.3); Neutrophils # 3.1 K/mm3 (1.8-7.8); Platelet Count 269 K/mm3 (142-424); Red Blood Count 3.74 M/mm3 (4.20-5.40); Red Cell Distribution Width 13.9 % (11.5-17.5); White Blood Count 5.2 K/mm3 (4.8-10.8)
[2022-08-02 06:50] LABS: Hemoglobin 12.1 g/dL (12.2-16.2)
[2022-08-02 06:52] LABS: Calcium 13.5 mg/dl (8.4-10.2)
--- NOTE | 2022-08-02 06:54 | PC.NURSE ---
lab called with critical calcium 13.5, dr donaldson has not returned call from page at [phone] and paged again at this time
--- NOTE | 2022-08-02 07:00 | PC.NURSE ---
0700 dr donaldson called back and notified of calcium level 13.5 and hr in the 30's 34-37, no acute distress, ekg reviewed by dr shafer with no new orders, other labs were reviewed, no new orders received to give 250ml bolus of NS now and then given lasix 20mg IV x1 after bolus complete, draw ionized calcium level and intact PTH level, repeat bmp at 12 noon, repeated and verified, reported info to oncoming RN Marina Lacey.
--- NOTE | 2022-08-02 07:25 | HMH.PHAINT1 ---
Pharmacy Intervention Comments: Medication reconciliation completed via external fill history and patient interview. -Consuelo Sanchez, PharmD Candidate 2022
[2022-08-02 07:39] LABS: Intact Parathyroid Hormone 10.1 pg/mL (7.5-53.5)
--- NOTE | 2022-08-02 08:26 | EXP.HP ---
History of Present Illness *Admission Date: 08/02/22 *Reason for visit:: weakness, nausea *History of present illness: Ms. Roberts is an 82-year-old female who states she began feeling poorly approximately 4 days ago. She states she began getting very weak and was nauseated. She did have some constipation and was taking laxatives at home. She states her upper and lower extremities began shaking. She had decreased p.o. intake, but had no vomiting or diarrhea. She presented to the emergency room for evaluation and was found to have acute kidney injury, hypercalcemia, and hypomagnesemia. She was admitted for further evaluation and treatment. [facility] Medical History Dependent on walker for ambulation Fall at home History of acute renal failure History of cellulitis History of CHF (congestive heart failure) History of fall History of hyperkalemia History of hypertension History of hypokalemia History of pneumonia Surgical History History of back surgery History of cholecystectomy History of hysterectomy History of knee replacement S/P insertion of spinal cord stimulator Family History (Updated 08/02/22 @ 08:30 by JOSETTE Felix) Coronary artery disease Heart attack Social History (Updated 08/02/22 @ 03:14 by Mima Newell RN) Smoking Status: Never smoker second hand exposure: No alcohol intake: never substance use type: denies use current occupational status: retired and other Travel in the last 8 weeks: None household members: children housing: house lives independently: No marital status: current occupational exposures/hazards: No caffeine: Yes special michael needs: No agree to transfusion: No additional social history: lives with son valerie, uses walker at home, history of falls Review of Systems Constitutional Constitutional: Reports fatigue, Denies fever(s), Denies headache(s) and Reports weakness Eyes Eyes: Denies blurry vision and Denies diplopia ENT Ears, Nose, Mouth, and Throat: Denies headache(s), Denies nasal congestion, Denies sore throat and Denies vertigo *Cardiovascular Cardiovascular: Denies chest pain, Denies dyspnea and Reports leg edema *Respiratory Respiratory: Denies cough and Denies dyspnea *Gastrointestinal Gastrointestinal: Denies abdominal pain, Reports constipation, Denies loose stools, Reports nausea and Denies vomiting *Genitourinary Genitourinary: Denies difficulty voiding and Denies dysuria *Musculoskeletal Musculoskeletal: Denies arthralgias and Denies myalgias *Neurologic Neurologic: Denies headache(s), Denies vertigo and Reports weakness Endocrine Endocrine: Reports fatigue Meds Home Medications and Allergies Home Medications Medication Instructions Recorded Confirmed Type cholecalciferol (vitamin D3) 50 2,000 unit PO DAILY Supplement 03/19/18 08/02/22 History mcg (2,000 unit) capsule multivitamin 1 tab PO DAILY Supplement 03/19/18 08/02/22 History gabapentin 600 mg tablet 600 mg PO Q6H Pain 11/16/18 08/02/22 History tramadol 50 mg tablet 50 mg PO Q6HP PRN Moderate Pain 11/16/18 08/02/22 History cyanocobalamin (vitamin B-12) 500 mcg PO DAILY Supplement 03/16/22 08/02/22 History 5,000 mcg disintegrating tablet omega-3 fatty acids-fish oil 340 1 each PO DAILY Supplement 03/16/22 08/02/22 History mg-1,000 mg capsule spironolactone 25 mg tablet 25 mg PO DAILY hypertension #30 04/18/22 08/02/22 Rx tabs clonidine HCl 0.2 mg tablet 0.2 mg PO HS PRN Hypertension 04/25/22 08/02/22 History coenzyme Q10 200 mg capsule (Co 200 mg PO DAILY Supplement 04/25/22 08/02/22 History Q-10) furosemide 40 mg tablet (Lasix) 40 mg PO DAILY Fluid #30 tabs 05/12/22 08/02/22 Rx etodolac 400 mg tablet 400 mg PO BID Pain 08/01/22 08/02/22 History pantoprazole 40 mg tablet,delayed 40 mg PO DAILY GERD 08/01/22 08/02/22 History release
--- NOTE | 2022-08-02 09:22 | US_ITS ---
FINAL REPORT CLINICAL HISTORY: hypercalcemia FINDINGS: THYROID ULTRASOUND The right lobe of the thyroid measures 3.8 x 1.4 x 0.8 cm. The left lobe of the thyroid measures 3.8 x 1.5 x 0.9 cm. In the right lobe of the thyroid is a 2 x 2 x 2 mm cystic TI-RADS 1 nodule. Also in the right lobe is a 4 x 3 x 1 mm cystic TI-RADS 1 nodule. In the right isthmus is a 6 x 4 x 2 mm cystic and solid TI-RADS 2 nodule. In the left lobe of the thyroid is a 5 x 3 x 3 cystic TI-RADS 1 nodule. IMPRESSION: Multiple small nodules as described. No follow-up per TI-RADS criteria. Reviewed, Interpreted and Dictated by Jarrod Caldwell III, MD Transcribed by Marek Bassett Authenticated and [facility]
[2022-08-02 10:50] LABS: Anion Gap 9.8 mEq/L (5-15); Sodium 136 mmol/L (136-145)
[2022-08-02 13:37] LABS: Chloride 109 mmol/L (98-107); Sodium 138 mmol/L (136-145)
[2022-08-02 13:38] LABS: Potassium 5.3 mmoL/L (3.5-5.1)
[2022-08-02 13:40] LABS: Blood Urea Nitrogen 31 mg/dl (7-17); Creatinine Clearance Estimated 21 mL/min (50-200); Estimated Glomerular Filt Rate 19 ml/min (>60); GFR (African American) 24 ML/MIN (>60)
[2022-08-02 13:41] LABS: Anion Gap 9.3 mEq/L (5-15); Carbon Dioxide 25 mmol/L (22.0-30.0); Glucose 139 mg/dl (74-100)
[2022-08-02 14:13] LABS: Calcium 13.7 mg/dl (8.4-10.2)
--- NOTE | 2022-08-02 16:23 | ECG_ITS ---
APPROVED REPORT Exam: Resting ECG HR:38 bpm ECG Measurements Heart Rate 38 AXES LA 366 P 201 QRSd 102 QRS 34 QT 448 T 55 QTc 371 Conclusion Sinus bradycardia Artifact noted [facility] changes UNCONFIRMED REPORT Electronically signed by : Dung Garcia MD 08/03/2022 20:11:43
--- NOTE | 2022-08-02 16:33 | PC.NURSE ---
PT IS RESTING IN BED. PT HAS BEEN VERY DROWSY WITH SOME DIFFICULTY TO AWAKEN. THIS AFTERNOON PT'S HR WAS MAINTAINING 38-43 BPM WHILE SLEEPING. NOTIFIED (EKG AND CARDIOLOGY CONSULT ORDERED). RESULTS OF EKG CALLED TO . CARDIOLOGY NOTIFIED HOWEVER THEY HAVE ALREADY LEFT FOR THE DAY. PT STATES SHE IS NOT FEELING BAD BUT SHE DOES FEEL VERY TIRED. PT'S GRANDDAUGHTER CAME IN THIS MORNING AND GAVE PT HER TRAMADOL AND GABAPENTIN. GRANDAUGHTER AND PT WERE BOTH EDUCATED NOT TO TAKE ANY HOME MEDICATIONS W/O IT BEING GIVEN TO THE NURSING STAFF SO PHARMACY COULD VERIFY. TRAMADOL AND GABAPENTIN WERE SENT HOME WITH FAMILY AND OTHER HOME MEDICATIONS WERE LOCKED UP IN THE DRAWER. WILL CONTINUE TO MONITOR.
[2022-08-03] VITALS (7 sets, daily range): BP systolic 146–195; BP diastolic 64–94; PULSE 50–68; RESP 16–18; TEMP 36.6–37; O2SAT 90–95; BMI 28.8
--- NOTE | 2022-08-03 04:25 | PC.NURSE ---
pt is A&OX4. ambulates with assistance, gait unsteady. HR has been between 51-68. pt has not c/o pain this shift. CB in reach.
[2022-08-03 08:16] LABS: Anion Gap 16.7 mEq/L (5-15); Blood Urea Nitrogen 32 mg/dl (7-17); Carbon Dioxide 28 mmol/L (22.0-30.0); Chloride 101 mmol/L (98-107); Creatinine Clearance Estimated 21 mL/min (50-200); Estimated Glomerular Filt Rate 19 ml/min (>60); GFR (African American) 22 ML/MIN (>60); Glucose 96 mg/dl (74-100); Potassium 3.7 mmoL/L (3.5-5.1); Sodium 142 mmol/L (136-145)
[2022-08-03 08:18] LABS: Calcium 13.6 mg/dl (8.4-10.2)
--- NOTE | 2022-08-03 08:21 | PC.NURSE ---
reported critical lab CA 13.6 to anatoliy GALLARDO
--- NOTE | 2022-08-03 08:41 | EXP.ACUTE.PN ---
Subjective *Date: 08/03/22 *Time: 08:41 Interval history: She remains comfortable and in no acute distress. She denies recent history of syncope or passing out. She states that her weakness is recent though I believe I have heard her complain of weakness in the past. Her pulse is 60 this morning. Her calcium remains high at 13.6 today. Her electrolytes are normal but her BUN is 32 and creatinine 2.5 with a GFR of 19. Cardiology was not able to see her yesterday. Medical Exam Vital signs and Labs for Last 24 Hours: Vital Signs Temp Pulse Pulse Resp BP Pulse Ox 08/03/22 04:00 50 L 08/03/22 03:32 98 F 68 16 146/64 H 92 L 08/03/22 00:00 50 L 08/02/22 23:44 98.3 F 50 L 16 154/52 H 90 L 08/02/22 23:00 50 L 08/02/22 20:00 51 L 08/02/22 19:40 98 F 51 L 16 132/59 L 100 08/02/22 16:00 40 L 08/02/22 15:21 97.7 F 40 L 16 121/71 92 L 08/02/22 14:52 50 L 08/02/22 12:03 50 L 08/02/22 11:21 97.7 F 45 L 16 157/76 H 94 L Intake and Output 08/02/22 08/03/22 08/03/22 19:59 03:59 11:59 Intake Total 1998 / 1998 Output Total 0 / 800 800 / 800 Balance 882 / 1199 -800 / 1199 1117 / 1199 Intake: Intake, Oral Amount 480 / 480 Intake, Total IV Amount 402 / 1519 1117 / 1519 0.9 % Sodium Chloride 1,000 ml 402 / 1519 1117 / 1519 @ 100 mls/hr IV .Q10H [facility] Rx#: [id number] Output: Output, Urine Amount 0 / 800 800 / 800 Other: Number of Unmeasured Voids 1 1 Weight 157 lb 7.972 oz 162 lb 11.2 oz Patient Weight 08/03/22 11:59 Weight 162 lb 11.2 oz Laboratory Results - last 24 hr 08/02/22 05:36: Sodium 136, Anion Gap 9.8 08/02/22 13:00: Sodium 138, Potassium 5.3 H D, Chloride 109 H, Carbon Dioxide 25, Anion Gap 9.3, BUN 31 H, Creatinine 2.40 H, Estimated Creat Clear 21, Estimated GFR 19 L*, Est GFR ( Amer) 24 L, Glucose 139 H D, Calcium 13.7 H* 08/03/22 07:57: Sodium 142, Potassium 3.7 D, Chloride 101, Carbon Dioxide 28, Anion Gap 16.7 H, BUN 32 H, Creatinine 2.50 H, Estimated Creat Clear 21, Estimated GFR 19 L*, Est GFR ( Amer) 22 L, Glucose 96 D, Calcium 13.6 H* I & O for Labs for Last 24 Hours: Intake & Output 07/31/22 08/01/22 08/02/22 08/03/22 11:59 11:59 11:59 11:59 Intake Total 655 / 655 1998 Output Total 0 / 0 800 / 800 Balance 655 / 655 1199 / 1199 Weight 157 lb 8 oz 162 lb 11.2 oz Head: Present normocephalic Neck: Present normal inspection Respiratory: Present CTA bilaterally Cardiac: Present Regular Rate (60) and Regular Rhythm; Absent No Murmur (Aortic murmur) GI: Present soft; Absent tenderness Rectal (female): Present deferred (female): Present deferred Extremities: Present normal inspection; Absent edema Skin: Present intact Neuro: Present alert and oriented x 3 Assessment and Plan *Assessment and plan (1) Hypercalcemia: Status: Acute Category: Medical Code(s): E83.52 - Hypercalcemia (2) EVA (acute kidney injury): Status: Acute Category: Medical Code(s): N17.9 - Acute kidney failure, unspecified (3) Sick sinus syndrome: Status: Acute Category: Medical Code(s): I49.5 - Sick sinus syndrome (4) Renal insufficiency: Status: Acute Category: Medical Code(s): N28.9 - Disorder of kidney and ureter, unspecified (5) Hypertension: Status: Chronic Qualifiers: Hypertension type: primary hypertension Qualified Code(s): I10 - Essential (primary) hypertension Category: Medical Code(s): I10 - Essential (primary) hypertension Plan Her blood pressure is elevated. Her clonidine is reordered. I would like to have cardiac consultation before discharge. We will keep her today and hope for consultation tomorrow. She could be a candidate for pacemaker. She is receiving furosemide and calcitonin for treatment for the hypercalcemia. The elevated
--- NOTE | 2022-08-03 17:46 | PC.NURSE ---
Addendum entered by Iram Pina RN 08/03/22 17:53: PT HAS SLEPT MOST OF AFTERNOON.PT WAS HAVING LIGHT TREMORS, GRANDDAUGHTER WAS AT BEDSIDE REQUESTING PTS TRAMADOL BE RESTARTED DUE TO POSSIBLE WITHDRAW. PER ROMAIN GALLARDO RESTRTED TRAMADOL AND GABAPENTIN DUE TO DIFFICULTY AROUSING PT. 1800 BGFS 130. Original Note: PER FRANK ORDER LABS (LT CHAIN, SPEP, UPEP), BONE SCAN, RENAL DUPLEX, RENAL U/S.. DC CLONIDINE, ORDER AMLODAPINE 10MG NOW AND BID. NIGHTWATCH SPECIFIED A MAX OF 10MG/DAY. SPOKE WITH Eduin BARRETT AT 1720 AND HE CONFIRMED HE WANTS 10MG AMLODIPINE BID LONG PT IS TOLERATING WELL.
--- NOTE | 2022-08-03 19:51 | PC.NURSE ---
SPOKE WITH PTS GRANDDAUGHTER AND SHE VOICED MULTIPLE CONCERNS, NOTIFIED ROMAIN. I RECOMMENDED PT COME IN FOR AM ROUNDS TO SPEAK WITH MD. PT WAS TEARFUL TONIGHT, PT STATED I MISS MY FAMILY, I WANT TO BE HOME WITH THEM RIGHT NOW . REASSURED PT, PROVIDED ORAL CARE, GAVE PRESCRIBED TRAMADOL FOR PTS PAIN, PLACED PERSONAL ITEMS AND CB WITHIN REACH. PNO FURTHER CONCERNS VOICED.
[2022-08-04] VITALS (7 sets, daily range): BP systolic 145–199; BP diastolic 59–116; PULSE 50–92; RESP 16–21; TEMP 36.5–37.2; O2SAT 91–97
--- NOTE | 2022-08-04 05:52 | PC.NURSE ---
pt had some nausea/vomiting this shift. zofran was given per nov with no relief, MD Baird was called and phergan 6.25 was ordered, pt has rested well since given phenergan at 2300.
--- NOTE | 2022-08-04 06:00 | US_ITS ---
FINAL REPORT CLINICAL HISTORY: INCREASE CA FINDINGS: RENAL ULTRASOUND Ultrasound images of the kidneys were obtained. Limited images of the liver parenchyma demonstrates normal echogenicity. The right kidney measures 9.0 cm in length. There is mild scarring. There is no hydronephrosis. The left kidney measures 8.9 cm in length. It is normal echogenicity. There is no hydronephrosis. IMPRESSION: Mild right renal scarring. Otherwise, unremarkable exam. Reviewed, Interpreted and Dictated by Jarrod Caldwell III, MD Transcribed by Jennifer Lincoln Authenticated and [facility]
--- NOTE | 2022-08-04 06:00 | NM_ITS ---
FINAL REPORT CLINICAL HISTORY: Hypercalcemia FINDINGS: Multiple projection images of the axial and appendicular skeleton were obtained after intravenous injection of 25.1 mCi of technetium 99 MDP. Correlation made with CT cervical spine and thoracic spine dated 07/08/2022 There are multifocal areas of increased radiotracer uptake in the cervical, thoracic, and lumbar spines. On CT imaging there are severe degenerative changes seen in the spine and postoperative changes in the thoracolumbar spine which account for the abnormalities. There is increased radiotracer activity in the shoulders, knees, wrists, hands, ankles, and feet which are likely degenerative. There is increased radiotracer uptake in the bilateral sternoclavicular joints consistent with degenerative change. No other abnormalities are identified. IMPRESSION: Multiple areas of increased radiotracer activity all of which are likely related to degenerative or postoperative changes. Reviewed, Interpreted and Dictated by Jarrod Caldwell III, MD Transcribed by Jennifer Lincoln Authenticated and [facility]
[2022-08-04 06:44] LABS: Basophils % 0.5 % (0.1-2.0); Eosinophils # 0.1 K/mm3 (0.0-0.4); Hematocrit 38.3 % (37.0-47.0); Hemoglobin 12.6 g/dL (12.2-16.2); Lymphocytes # 1.7 K/mm3 (0.7-4.5); Lymphocytes % 23.9 % (10-50); Mean Corpuscular HGB Conc 32.9 g/dL (31.8-35.4); Mean Corpuscular Hemoglobin 32.3 pg (27.0-31.2); Mean Corpuscular Volume 98.3 fl (81-99); Mean Platelet Volume 8.4 fl (7.4-10.4); Monocytes # 0.4 K/mm3 (0.1-1.0); Monocytes % 5.5 % (1.7-9.3); Neutrophils # 4.8 K/mm3 (1.8-7.8); Neutrophils % 69.1 % (37.0-80.0); Platelet Count 297 K/mm3 (142-424); Red Blood Count 3.89 M/mm3 (4.20-5.40)
[2022-08-04 06:49] LABS: POC Glucose,Bedside 130 (70-110)
[2022-08-04 06:50] LABS: Alanine Aminotransferase 11 U/L (12-78); Albumin Level 3.6 g/dl (3.5-5.0); Albumin/Globulin Ratio 1.4 (1.1-1.8); Alkaline Phosphatase 115 U/L (38-126); Anion Gap 14.7 mEq/L (5-15); Aspartate Amino Transferase 22 U/L (14-36); Bilirubin,Total 0.3 mg/dl (0.2-1.3); Blood Urea Nitrogen 23 mg/dl (7-17); Calcium 11.1 mg/dl (8.4-10.2); Carbon Dioxide 31 mmol/L (22.0-30.0); Chloride 102 mmol/L (98-107); Creatinine Clearance Estimated 26 mL/min (50-200); Estimated Glomerular Filt Rate 24 ml/min (>60); GFR (African American) 29 ML/MIN (>60); Globulin 2.6 g/dL (1.3-3.2); Glucose 93 mg/dl (74-100); Sodium 145 mmol/L (136-145); Total Protein,Serum 6.2 g/dl (6.3-8.2)
[2022-08-04 07:39] LABS: Potassium 2.7 mmoL/L (3.5-5.1)
--- NOTE | 2022-08-04 08:13 | EXP.ACUTE.PN ---
Subjective *Date: 08/04/22 *Time: 08:19 Interval history: Patient is not feeling well this am. She states her head hurts and she has been nauseated. She states she wet the bed this am and needs to be changed. She is c/o back pain. Medical Exam Vital signs and Labs for Last 24 Hours: Vital Signs Temp Pulse Pulse Resp BP Pulse Ox 08/04/22 04:00 50 L 08/04/22 00:00 50 L 08/04/22 04:00 97.7 F 91 H 18 168/80 H 97 08/03/22 20:00 60 08/04/22 00:00 98.5 F 64 16 145/59 H 91 L 08/03/22 20:00 50 L 08/03/22 20:00 56 L 08/03/22 20:00 98.6 F 56 L 16 171/81 H 95 08/03/22 16:00 98.2 F 57 L 18 180/74 H 90 L 08/03/22 12:00 98.1 F 64 18 155/94 H 93 L Intake and Output 08/03/22 08/04/22 08/04/22 19:59 03:59 11:59 Intake Total 120 / 1210 1090 / 1210 Output Total 1450 / 2500 1050 / 2500 0 / 2500 Balance -1330 / -1290 40 / -1290 0 / -1290 Intake: Intake, Oral Amount 120 / 120 Intake, Total IV Amount 1090 / 1090 0.9 % Sodium Chloride 1,000 ml 1090 / 1090 @ 100 mls/hr IV .Q10H [facility] Rx#: [id number] Output: Output, Urine Amount 1450 / 2350 900 / 2350 0 / 2350 Output, Emesis Amount 150 / 150 Other: Number of Unmeasured Voids 0 1 Laboratory Results - last 24 hr 08/03/22 07:57: Sodium 142, Potassium 3.7 D, Chloride 101, Carbon Dioxide 28, Anion Gap 16.7 H, BUN 32 H, Creatinine 2.50 H, Estimated Creat Clear 21, Estimated GFR 19 L*, Est GFR ( Amer) 22 L, Glucose 96 D, Calcium 13.6 H* 08/03/22 18:14: POC Glucose 130 H 08/04/22 06:02: WBC 7.0 D, RBC 3.89 L, Hgb 12.6, Hct 38.3, MCV 98.3, MCH 32.3 H, MCHC 32.9, RDW 14.0, Plt Count 297, MPV 8.4, Neut % (Auto) 69.1, Lymph % (Auto) 23.9, [place] % (Auto) 5.5, Eos % (Auto) 1.0, Baso % (Auto) 0.5, Neut # (Auto) 4.8, Lymph # (Auto) 1.7, [place] # (Auto) 0.4, Eos # (Auto) 0.1, Baso # (Auto) 0.0 08/04/22 06:02: Sodium 145, Potassium 2.7 L* D, Chloride 102, Carbon Dioxide 31 H, Anion Gap 14.7, BUN 23 H D, Creatinine 2.00 H, Estimated Creat Clear 26, Estimated GFR 24 L, Est GFR ( Amer) 29 L D, Glucose 93, Calcium 11.1 H, Total Bilirubin 0.3, AST 22, ALT 11 L, Alkaline Phosphatase 115, Total Protein 6.2 L, Albumin 3.6, Globulin 2.6, Albumin/Globulin Ratio 1.4 I & O for Labs for Last 24 Hours: Intake & Output 08/01/22 08/02/22 08/03/22 08/04/22 11:59 11:59 11:59 11:59 Intake Total 655 / 655 2119 / 2119 1210 / 1210 Output Total 0 / 0 1600 / 2100 2500 / 2500 Balance 655 / 655 519 / 19 -1290 / -1290 Weight 157 lb 8 oz 162 lb 11.2 oz Microbiology Reports for the Last 24 Hours: Microbiology 08/01/22 21:51 Blood Blood Culture - Preliminary NO GROWTH AFTER 48 HOURS 08/01/22 21:51 Blood Blood Culture - Preliminary NO GROWTH AFTER 48 HOURS Constitutional: Present no acute distress Respiratory: Present crackles Cardiac: Present Regular Rhythm and Bradycardia GI: Present soft; Absent distention, tenderness or guarding Extremities: Absent edema Assessment and Plan *Assessment and plan (1) Hypercalcemia: Status: Acute Category: Medical Code(s): E83.52 - Hypercalcemia (2) EVA (acute kidney injury): Status: Acute Category: Medical Code(s): N17.9 - Acute kidney failure, unspecified (3) Sick sinus syndrome: Status: Acute Category: Medical Code(s): I49.5 - Sick sinus syndrome (4) Renal insufficiency: Status: Acute Category: Medical Code(s): N28.9 - Disorder of kidney and ureter, unspecified (5) Hypertension: Status: Chronic Qualifiers: Hypertension type: primary hypertension Qualified Code(s): I10 - Essential (primary) hypertension Category: Medical Code(s): I10 - Essential (primary) hypertension (6) Hypokalemia: Status: Acute Category: Medical Code(s): E87.6 - Hypokalemia [place]
--- NOTE | 2022-08-04 09:51 | PC.NURSE ---
tech note;notified nurse of high blood pressure for 0800 vital signs.
--- NOTE | 2022-08-04 14:34 | PC.NURSE ---
tech note; notified nurse of high blood pressure for 1200 vital signs.
--- NOTE | 2022-08-04 14:40 | CA_ITS ---
FINAL REPORT TECHNIQUE: Grayscale, color Doppler and duplex Doppler ultrasound of the kidneys, aorta and renal arteries was performed. Multiple velocities were measured. CLINICAL HISTORY: DECREASE RENAL FUNCTION FINDINGS: Aorta velocity: 97 cm/sec Right kidney: 8.3 cm. No evidence of hydronephrosis or mass. Right intrarenal RI: 0.68 Right renal artery velocity: 137 cm/sec. Right RAR (Renal artery-Aortic Ratio): 1.4 Left Kidney: 9.0 cm. No evidence of hydronephrosis or mass. Left intrarenal RI: 0.75 Left renal artery velocity: 119 cm/sec. Left RAR (Renal Artery-Aortic Ratio): 1.2 IMPRESSION: No evidence of significant renal artery stenosis. CT angiogram or postcontrast MR angiogram would be more sensitive for evaluation of possible renal artery stenosis. Reviewed, Interpreted and Dictated by Jarrod Caldwell III, MD Transcribed by Jennifer Lincoln Authenticated and [facility]
--- NOTE | 2022-08-04 16:50 | PC.NURSE ---
tech note; notified nurse of high blood pressure for 1600 vital signs.
--- NOTE | 2022-08-04 18:03 | PC.NURSE ---
PT IS RESTING IN BED. MEDICATED PER NOV FOR HEADACHE THIS SHIFT. PT HAS BEEN MEDICATED FOR ELEVATED BP. LUNG SOUNDS CLEAR WITH FINE CRACKLES (BILATERAL BASES). PURWICK IN PLACE. APPETITE HAS BEEN POOR. PT STATES SHE HAS NOT FELT LIKE EATING FOR SEVERAL DAYS. NEW IV ACCESS NOTED TO THE RAC. SWELLING NOTED TO BLE. PT'S CELL PHONE IS MISSING. STAFF WENT THROUGH [employer] IN THE ROOM AND NOTIFIED HOUSEKEEPING WHO STATED THE LINENS THAT WERE COLLECTED FROM SECOND FLOOR HAVE ALREADY BEEN PICKED BY THE COMPANY. HOUSEKEEPING STATED THEY WOULD NOTIFY THE COMPANY.
[2022-08-04 18:08] LABS: Calcium, Ionized 8.7 mg/dL (4.5-5.6)
--- NOTE | 2022-08-04 21:40 | PC.NURSE ---
PAGED PHARMACIST NURSE EXECUTIVE AT 2053. SWITCHBOARD CALLED AT 2056 AND STATED THAT THERE WAS NO ANSWER.
--- NOTE | 2022-08-04 21:47 | PC.NURSE ---
SPOKE WITH TASHI FROM PHARMACY. HE STATED THAT SOMEONE WOULD COME IN TO GET CALCITONIN FOR PT.
--- NOTE | 2022-08-04 21:52 | PC.NURSE ---
SPOKE TO JOSÉ MIGUEL FROM PHARMACY. CALCITONIN IS NOT AVAILABLE. JOSÉ MIGUEL STATED THAT MD HOYOS IS AWARE.
[2022-08-05] VITALS (7 sets, daily range): BP systolic 128–160; BP diastolic 66–93; PULSE 56–80; RESP 18–22; TEMP 36.5–37.2; O2SAT 92–98; BMI 28.8
--- NOTE | 2022-08-05 05:31 | PC.NURSE ---
NO ACUTE CHANGES SINCE PREVIOUS ASSESSMENT. PT HAS RESTED WELL THIS SHIFT. LUNG SOUNDS ARE CLEAR. REMAINS ON ROOM AIR. PT HAS BEEN TURNING IN BED WITH X1 ASSIST PER PT REQUEST. PT HAS C/O A HEADACHE ONCE THIS SHIFT AND WAS MEDICATED PER MAR WITH ADEQUATE RELIEF. VOIDING PER CEASR. REMAINS NSR ON TELE. CALL RAMACHANDRAN WITHIN REACH.
[2022-08-05 09:37] LABS: Chloride 108 mmol/L (98-107); Potassium 3.6 mmoL/L (3.5-5.1); Sodium 141 mmol/L (136-145)
[2022-08-05 09:40] LABS: Anion Gap 12.6 mEq/L (5-15); Blood Urea Nitrogen 22 mg/dl (7-17); Carbon Dioxide 24 mmol/L (22.0-30.0); Creatinine Clearance Estimated 35 mL/min (50-200); Estimated Glomerular Filt Rate 33 ml/min (>60); GFR (African American) 40 ML/MIN (>60)
[2022-08-05 09:41] LABS: Calcium 9.9 mg/dl (8.4-10.2); Glucose 84 mg/dl (74-100)
--- NOTE | 2022-08-05 12:19 | EXP.ACUTE.PN ---
Subjective *Date: 08/05/22 *Time: 12:19 Interval history: She is clinically much improved. Her potassium has normalized to 3.6. Her calcium has normalized at 9.9. I will decrease the calcitonin dose to once daily. She is less tremulous and has less discomfort in her hands and cramping. Her bone scan basically showed areas of inflammation consistent with her arthritic problems. Nothing ominous was revealed, thus we have no explanation for the hypercalcemia. The renal tests and the thyroid tests have all been good. She continues to complain about difficulty with nausea and decreased appetite. I hope the amlodipine is not adding to swallowing difficulties. Her son is present in the room and we discussed her case. Medical Exam Vital signs and Labs for Last 24 Hours: Vital Signs Temp Pulse Pulse Resp BP Pulse Ox 08/05/22 08:00 92 L 08/05/22 08:00 98.5 F 73 22 160/69 H 92 L 08/05/22 04:00 97.7 F 56 L 18 128/70 96 08/05/22 04:00 60 08/05/22 00:00 70 08/05/22 00:00 70 08/05/22 00:00 98.9 F 75 18 154/66 H 98 08/04/22 20:00 98.2 F 80 20 157/73 H 92 L 08/04/22 20:00 70 08/04/22 16:00 65 08/04/22 16:00 99.0 F 77 20 195/88 H 91 L Intake and Output 08/05/22 08/05/22 08/05/22 03:59 11:59 19:59 Intake Total 843 / 2433 539 / 2433 Output Total 2049 Balance 43 / 383 -311 / 383 Intake: Intake, Total IV Amount 843 / 2193 539 / 2193 0.9 % Sodium Chloride 1,000 ml 843 / 2193 539 / 2193 @ 100 mls/hr IV .Q10H [facility] Rx#: [id number] Output: Output, Urine Amount 2049 / 2049 Other: Weight 162 lb 4.8 oz Laboratory Results - last 24 hr 08/02/22 08:58: Ionized Calcium 8.7 H 08/05/22 09:11: Sodium 141, Potassium 3.6 D, Chloride 108 H, Carbon Dioxide 24, Anion Gap 12.6, BUN 22 H, Creatinine 1.50 H D, Estimated Creat Clear 35, Estimated GFR 33 L, Est GFR ( Amer) 40 L D, Glucose 84, Calcium 9.9 I & O for Labs for Last 24 Hours: Intake & Output 08/03/22 08/04/22 08/05/22 08/06/22 11:59 11:59 11:59 11:59 Intake Total 2119 / 2119 1210 / 1210 2433 / 2433 Output Total 1600 / 2100 3800 / 3800 2049 Balance 519 / 19 -2590 / -2590 383 / 383 Weight 162 lb 11.2 oz 162 lb 4.8 oz Head: Present normocephalic Neck: Present full ROM Respiratory: Present CTA bilaterally Cardiac: Present Reg Rate and Rhythm (68) GI: Present soft and tenderness Rectal (female): Present deferred (female): Present deferred Extremities: Present normal inspection and joint swelling Skin: Present intact Neuro: Present alert and oriented x 3 Assessment and Plan *Assessment and plan (1) Hypercalcemia: Status: Acute Category: Medical Code(s): E83.52 - Hypercalcemia (2) Sinus bradycardia: Status: Acute Category: Medical Code(s): R00.1 - Bradycardia, unspecified (3) Renal insufficiency: Status: Acute Category: Medical Code(s): N28.9 - Disorder of kidney and ureter, unspecified (4) Hypokalemia: Status: Acute Category: Medical Code(s): E87.6 - Hypokalemia Plan Decrease oral calcitonin to once a day. She will be here through the weekend. Possible discharge Sunday with further outpatient evaluation.
--- NOTE | 2022-08-05 18:14 | PC.NURSE ---
CALCIUM LEVEL NL TODAY. TELE MONITORING SR. H/A CONTROLED WITH TRAMADOL AND NAUSEA CONTROLED WITH ZOFRAN AND PHENERGAN. HAS BEEN IN BED MOST OF THE DAY. PUREWICK IN USE, URINE CLEAR YELLOW. NO LONGER IN NUCLEAR PRECAUTIONS.
[2022-08-06] VITALS (9 sets, daily range): BP systolic 125–166; BP diastolic 63–86; PULSE 61–82; RESP 16–18; TEMP 36.7–37.4; O2SAT 91–96; BMI 28.5
--- NOTE | 2022-08-06 03:00 | PC.NURSE ---
tramadol given and immediately thrown up, pill was visualized in emesis bag, tramadol pulled again and other one wasted
--- NOTE | 2022-08-06 06:20 | PC.NURSE ---
pt has rested intermittently t/o shift, has complained of a headache one time and was treated per NOV, did complain of nausea and did vomit a small amount, PRN medications given for nausea, has a small amount of edema to BLE, remains on room air with O2 sats 92-94%, has had 700 mL of urine out this shift
[2022-08-06 07:13] LABS: CEA 2.6 ng/mL (0.0-4.7)
[2022-08-06 09:57] LABS: Chloride 109 mmol/L (98-107); Potassium 3.1 mmoL/L (3.5-5.1); Sodium 142 mmol/L (136-145)
[2022-08-06 10:00] LABS: Alanine Aminotransferase 10 U/L (12-78); Albumin Level 3.6 g/dl (3.5-5.0); Albumin/Globulin Ratio 1.4 (1.1-1.8); Alkaline Phosphatase 105 U/L (38-126); Anion Gap 14.1 mEq/L (5-15); Aspartate Amino Transferase 32 U/L (14-36); Bilirubin,Total 0.4 mg/dl (0.2-1.3); Blood Urea Nitrogen 22 mg/dl (7-17); Carbon Dioxide 22 mmol/L (22.0-30.0); Creatinine Clearance Estimated 37 mL/min (50-200); Estimated Glomerular Filt Rate 36 ml/min (>60); GFR (African American) 44 ML/MIN (>60); Globulin 2.6 g/dL (1.3-3.2); Total Protein,Serum 6.2 g/dl (6.3-8.2)
[2022-08-06 10:01] LABS: Glucose 75 mg/dl (74-100)
--- NOTE | 2022-08-06 13:15 | EXP.ACUTE.PN ---
Subjective *Date: 08/06/22 *Time: 13:15 Interval history: Clinically she is much more stable. She states her nausea has improved. Her blood pressure has improved. This morning her calcium is 9.0. Yesterday it was 9.9. She is still receiving the calcitonin nasal spray. We will discontinue the subcu calcitonin and see if her level remains stable tomorrow. Her hypokalemia had corrected with a run of potassium and the p.o. dosing, but today has declined to 3.1. I ordered an additional 20 mEq of potassium p.o. today. Medical Exam Vital signs and Labs for Last 24 Hours: Vital Signs Temp Pulse Pulse Resp BP Pulse Ox 08/06/22 12:00 98.8 F 67 16 147/64 H 92 L 08/06/22 08:00 99.3 F 70 16 166/86 H 91 L 08/06/22 04:00 98.5 F 73 18 154/73 H 92 L 08/06/22 04:00 80 08/06/22 00:00 75 08/05/22 20:00 80 08/06/22 00:00 99.1 F 76 18 157/70 H 92 L 08/05/22 20:00 98.4 F 69 18 148/93 H 94 L 08/05/22 20:00 94 L 08/05/22 16:00 78 08/05/22 16:00 98.8 F 76 18 152/70 H 94 L Intake and Output 08/06/22 08/06/22 08/06/22 03:59 11:59 19:59 Intake Total 1442 / 2755 Output Total 700 / 3900 1100 / 1100 Balance 742 / -1145 -1100 / -1100 Intake: Intake, Total IV Amount 1442 / 2635 0.9 % Sodium Chloride 1,000 ml 1442 / 2635 @ 100 mls/hr IV .Q10H [facility] Rx#: [id number] Output: Output, Urine Amount 700 / 3900 1100 / 1100 Other: Number of Unmeasured Voids 1 Weight 161 lb Laboratory Results - last 24 hr 08/04/22 06:02: Carcinoembryonic Ag 2.6 08/06/22 07:55: Sodium 142, Potassium 3.1 L, Chloride 109 H, Carbon Dioxide 22, Anion Gap 14.1, BUN 22 H, Creatinine 1.40 H, Estimated Creat Clear 37, Estimated GFR 36 L, Est GFR ( Amer) 44 L, Glucose 75, Calcium 9.0, Total Bilirubin 0.4, AST 32 D, ALT 10 L, Alkaline Phosphatase 105, Total Protein 6.2 L, Albumin 3.6, Globulin 2.6, Albumin/Globulin Ratio 1.4 I & O for Labs for Last 24 Hours: Intake & Output 08/04/22 08/05/22 08/06/22 08/07/22 11:59 11:59 11:59 11:59 Intake Total 1210 / 1210 2433 / 2433 2755 / 2755 Output Total 3800 / 3800 2050 / 2850 2800 / 3900 1100 / 1100 Balance -2590 / -2590 383 / -417 -45 / -1145 -1100 / -1100 Weight 162 lb 4.8 oz 161 lb Head: Present normocephalic Neck: Present normal inspection Respiratory: Present CTA bilaterally; Absent respiratory distress Cardiac: Present Reg Rate and Rhythm (72 with occasional ectopic) GI: Present soft; Absent tenderness Rectal (female): Present deferred (female): Present deferred Extremities: Present edema (Trace) Skin: Present intact Neuro: Present alert and oriented x 3 Assessment and Plan *Assessment and plan (1) Hypercalcemia: Status: Acute Category: Medical Code(s): E83.52 - Hypercalcemia (2) Hypokalemia: Status: Acute Category: Medical Code(s): E87.6 - Hypokalemia (3) Renal insufficiency: Status: Acute Category: Medical Code(s): N28.9 - Disorder of kidney and ureter, unspecified (4) Sinus bradycardia: Status: Acute Category: Medical Code(s): R00.1 - Bradycardia, unspecified (5) EVA (acute kidney injury): Status: Acute Category: Medical Code(s): N17.9 - Acute kidney failure, unspecified (6) Chronic low back pain: Status: Acute Category: Medical Code(s): M54.50 - Low back pain, unspecified; G89.29 - Other chronic pain Plan As described above. The hypokalemia remains a problem. I will increase spironolactone to 25mg twice a day. I will decrease the furosemide to 20mg daily. Additional p.o. potassium was given today. I will discontinue the subcu calcitonin and we will see what the level is in the morning. I hope we will get her out tomorrow if we can determine her p.o. regimen. There will be follow-up testing that will be required as well.
--- NOTE | 2022-08-06 16:03 | DIET.NUTRFU ---
Pt with improved nausea and blood pressure per MD progress note. Pt has refused most meals recorded but did consume 50% at lunch today. Pt diet being supplemented with protein shake at lunch. Will continue to monitor improvement in PO intake to determine if additional supplementation would be beneficial.
--- NOTE | 2022-08-06 17:26 | PC.NURSE ---
PT IS SITTING UP IN THE CHAIR. ALERT AND ORIENTED X4. MEDICATED PER MAR FOR BACK PAIN THIS SHIFT. WITH SOME ENCOURAGEMENT PT HAS BEEN MORE MOBILE THIS SHIFT. AMBULATED TO THE BATHROOM WITH 1 ASSIST. PT IS STILL NOT EATING MUCH BUT HAS BEEN DRINKING LIQUIDS. WILL CONTINUE TO MONITOR.
[2022-08-07] VITALS: PULSE 60
[2022-08-07 04:00] VITALS: BP 150/58; PULSE 60; PULSE 71; RESP 16; TEMP 36.9; O2SAT 94
[2022-08-07 05:00] VITALS: BMI 27.9
--- NOTE | 2022-08-07 05:52 | PC.NURSE ---
pt has rested well t/o shift, has not had any nausea or vomiting this shift, did report pain in right leg at beginning of shift, PRN medications given with no further complaints of pain, remains on room air, O2 sats 94-95%
[2022-08-07 08:00] VITALS: BP 152/74; PULSE 70; PULSE 71; RESP 20; TEMP 36.7; O2SAT 94; O2SAT 95
--- NOTE | 2022-08-07 08:35 | EXP.PN ---
Subjective *Date: 08/07/22 *Time: 08:35 Interval history: Patient is doing well this morning. She did sleep at intervals. She states it is hard to sleep in the hospital. She denies any nausea or vomiting. She just awakened and would like a hot practice. She has difficulty in ambulating because of her right knee. She denies any further tremors. Exam Data for Last 24 hours Vital signs and Labs for Last 24 Hours: Temp Pulse Resp BP Pulse Ox 98.5 F 71 16 150/58 H 94 L 08/07/22 04:00 08/07/22 04:00 08/07/22 04:00 08/07/22 04:00 08/07/22 04:00 Laboratory Results - last 24 hr 08/06/22 07:55: Sodium 142, Potassium 3.1 L, Chloride 109 H, Carbon Dioxide 22, Anion Gap 14.1, BUN 22 H, Creatinine 1.40 H, Estimated Creat Clear 37, Estimated GFR 36 L, Est GFR ( Amer) 44 L, Glucose 75, Calcium 9.0, Total Bilirubin 0.4, AST 32 D, ALT 10 L, Alkaline Phosphatase 105, Total Protein 6.2 L, Albumin 3.6, Globulin 2.6, Albumin/Globulin Ratio 1.4 I & O for Last 24 hours: Intake & Output 08/04/22 08/05/22 08/06/22 08/07/22 11:59 11:59 11:59 11:59 Intake Total 1210 / 1210 2433 / 2433 2755 / 2755 1401 / 1401 Output Total 3800 / 3800 2050 / 2050 2800 / 2800 1450 / 1450 Balance -2590 / -2590 383 / 383 -45 / -45 -49 / -49 Weight 162 lb 4.8 oz 161 lb 157 lb 9 oz Microbiology Reports for the Last 24 Hours: Microbiology 08/01/22 21:51 Blood Blood Culture - Final NO GROWTH AFTER 5 DAYS 08/01/22 21:51 Blood Blood Culture - Final NO GROWTH AFTER 5 DAYS Constitutional Constitutional: no acute distress (Assisted up to the bedside commode without difficulty.) *Routine Respiratory Exam Respiratory: Present CTA bilaterally and diminished air movement (Posteriorly); Absent accessory muscle use *Routine Cardiovascular Exam Cardiovascular: Present RRR *Routine Abdominal Exam Abdominal: Present soft and normoactive bowel sounds; Absent tenderness or distended *Routine Extremities Exam Extremities: Absent edema or calf tenderness *Routine Neurological Exam Neurological: Present alert and oriented X3 Assessment and Plan *Assessment and plan (1) Hypercalcemia: Status: Acute Category: Medical Code(s): E83.52 - Hypercalcemia (2) Hypokalemia: Status: Acute Category: Medical Code(s): E87.6 - Hypokalemia (3) Renal insufficiency: Status: Acute Category: Medical Code(s): N28.9 - Disorder of kidney and ureter, unspecified (4) Sinus bradycardia: Status: Acute Category: Medical Code(s): R00.1 - Bradycardia, unspecified (5) EVA (acute kidney injury): Status: Acute Category: Medical Code(s): N17.9 - Acute kidney failure, unspecified (6) Chronic low back pain: Status: Acute Category: Medical Code(s): M54.50 - Low back pain, unspecified; G89.29 - Other chronic pain Plan We will repeat labs this morning. Possibly home later.
[2022-08-07 09:45] LABS: Alanine Aminotransferase 13 U/L (12-78); Albumin Level 3.8 g/dl (3.5-5.0); Albumin/Globulin Ratio 1.5 (1.1-1.8); Alkaline Phosphatase 114 U/L (38-126); Anion Gap 16.4 mEq/L (5-15); Aspartate Amino Transferase 28 U/L (14-36); Bilirubin,Total 0.4 mg/dl (0.2-1.3); Blood Urea Nitrogen 22 mg/dl (7-17); Calcium 9.5 mg/dl (8.4-10.2); Carbon Dioxide 24 mmol/L (22.0-30.0); Chloride 101 mmol/L (98-107); Creatinine Clearance Estimated 39 mL/min (50-200); Estimated Glomerular Filt Rate 39 ml/min (>60); GFR (African American) 48 ML/MIN (>60); Globulin 2.6 g/dL (1.3-3.2); Glucose 132 mg/dl (74-100); Potassium 3.4 mmoL/L (3.5-5.1); Sodium 138 mmol/L (136-145); Total Protein,Serum 6.4 g/dl (6.3-8.2)
[2022-08-07 12:00] VITALS: BP 133/65; PULSE 70; PULSE 71; RESP 19; TEMP 36.8; O2SAT 95
--- NOTE | 2022-08-07 12:17 | EXP.CARD.CON ---
History of Present Illness History of Present Illness Consult date: 08/07/22 Requesting physician: Rizwana Baird Chief complaint: bradycardia, hypercalcemia Additional Medical History:: 1. History of Bilateral knee replacement 2. 4 back surgeries with extensive hardware in place with peripheral neuropathy 3. 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 Head CT 07/16/2022, no acute intracranial abnormality but there is evidence of hypoattenuation in the periventricular and subcortical white matter consistent with chronic small vessel ischemia. 4. History of CHF noted in the chart with the patient on spironolactone and furosemide as well as as needed clonidine on home meds 5. Hypercalcemia with bradycardia, 07/2022. Treated with calcitonin spray with resolution of bradycardia with normalization of calcium level. 6. Hypertension 7. Coronary calcification noted on abdomen/pelvis CT, 07/2022 History of present illness: Ms. Roberts is an 82-year-old female who states she began feeling poorly approximately 4 days ago.? She states she began getting very weak and was nauseated.? She did have some constipation and was taking laxatives at home.? She states her upper and lower extremities began shaking.? She had decreased p.o. intake, but had no vomiting or diarrhea.? She presented to the emergency room for evaluation and was found to have acute kidney injury, hypercalcemia, and hypomagnesemia.? She was admitted for further evaluation and treatment. The above per Dr. Baird Patient confirms events as noted above. Cardiology was consulted during this admission due to bradycardia with concerns for possible pacemaker placement. Once the patient's calcium was corrected the bradycardia resolved and heart rate has been in the 60s in sinus since then. Patient denies any history of cardiac problems and denies any history of syncope. Nondiabetic, no history of alcohol use, no history of tobacco use. [facility] Medical History (Updated 08/06/22 @ 13:24 by Rizwana Baird MD) Chronic low back pain Dependent on walker for ambulation Fall at home History of acute renal failure History of cellulitis History of CHF (congestive heart failure) History of fall History of hyperkalemia History of hypertension History of hypokalemia History of pneumonia Renal insufficiency Surgical History History of back surgery History of cholecystectomy History of hysterectomy History of knee replacement S/P insertion of spinal cord stimulator Family History (Updated 08/02/22 @ 08:30 by JOSETTE Felix) Coronary artery disease Heart attack Social History (Updated 08/02/22 @ 03:14 by Mima Newell RN) Smoking Status: Never smoker second hand exposure: No alcohol intake: never substance use type: denies use current occupational status: retired and other Travel in the last 8 weeks: None household members: children housing: house lives independently: No marital status: current occupational exposures/hazards: No caffeine: Yes special michael needs: No agree to transfusion: No additional social history: lives with son valerie, uses walker at home, history of falls Review of Systems Review of Systems Review of systems:: pertinent systems reviewed and negative unless documented below Constitutional Constitutional: Denies headache(s) and Reports weakness ENT Ears, Nose, Mouth, and Throat: Denies headache(s) and Denies vertigo *Cardiovascular Cardiovascular: Denies chest pain and Denies dyspnea *Respiratory Respiratory: Denies cough and Denies dyspnea *Gastrointestinal Gastrointestinal: Reports abdominal pain and Reports nausea *Musculoskeletal Musculoskeletal: Reports muscle cramps and Reports radiating pain into limb *Neurologic
--- NOTE | 2022-08-07 12:39 | CA_ITS ---
APPROVED REPORT EXAM: Comprehensive 2D, Doppler, and color-flow Echocardiogram Wildlife Veterinarian: Debbie Melgar RVT Ht: 5 ft 3 in Wt: 157lbs BSA: 1.74 BP: 152/74 mmHg Indications: BRADYCARDIA,HX CHF,HTN,HLD,HYPERCALCEMIA 2D Dimensions LVOT 1.90 cm (M/F) 1.5-2.5 LA Volume 37.30 mL LA Volume Index 21.43 mL/m2 (M/F) 16-34 M-Mode Dimensions RVDd 2.43 cm (0.9-2.6) LA Diam 3.32 cm (1.9-4.0) LVDd 3.99 cm (3.5-5.7) Ao Diam 3.24 cm (2.0-3.7) LVDs 2.28 cm (3.5-5.7) IVSd 1.16 cm (0.6-1.1) PWd 0.75 cm (0.6-1.1) EF (Teich) 74.60% FS 42.90% EDV (Teich) 69.60 mL TAPSE 2.55 (<1.7) ESV (Teich) 17.70 mL LV Diastology E Decel Time 370.00 (160-240 msec) E/A Ratio 0.6 MED E' 10.80 (< 7 cm/sec) E'/MED E' Ratio 6.75 (>14) LAT E' 4.40 (<10 cm/sec) E/LAT E' Ratio 16.57 (>14) Aortic Valve AI PHT 585.00 ms AO Peak GR. 10.30 mmHg Mitral Valve MV E Max Darshan. 73.00 (40-130 cm/s) MV A Velocity 120.00 (40-130 cm/s) E/A Ratio 0.61 MV Decel. Time 370.00 (160-240 ms) MV PHT 108.00 ms Pulmonary Valve PV Peak Velocity 100.00 (50-150 cm/s) Tricuspid Valve TR P. Velocity 344.00 cm/s RAP Estimate 10.00 mmHg RVSP 57.30 mmHg Left Ventricle Left atrium is mildly enlarged, left ventricle is normal size, mild concentric left ventricular hypertrophy, estimated ejection fraction 55% with no regional wall motion abnormality, grade 1 diastolic dysfunction seen without tissue Doppler evidence of raise left atrial pressure. Right Ventricle Right atrium and right ventricle are mildly enlarged with normal contractility. Aortic Valve Aortic valve is thickened and calcified without aortic stenosis, there is mild aortic insufficiency. Mitral Valve Mitral valve has mitral annular calcification, there is no mitral stenosis, there is mild mitral regurgitation. Tricuspid Valve Tricuspid valve grossly normal, there is moderate tricuspid regurgitation, calculated right ventricular systolic pressure is 57 mmHg. Pulmonic Valve Pulmonic valve is poorly visualized. Great Vessels Aortic root is normal size. Inferior vena cava is poorly visualized. Pericardium No significant pericardial effusion noted. Conclusion 1. Biatrial enlargement, normal left ventricular size, mild concentric left ventricular hypertrophy, estimated ejection fraction 55% with no regional wall motion abnormality, grade 1 diastolic dysfunction seen without tissue Doppler evidence of raise left atrial pressure. 2. Mildly enlarged right ventricle with normal contractility. 3. Mild aortic, mild mitral and moderate tricuspid regurgitation, calculated right ventricular systolic pressure is 57 mmHg. 4. No significant pericardial effusion noted. 5. Inferior vena cava is poorly visualized. Electronically signed by : Jesus Castillo MD 08/08/2022 06:52:55
--- NOTE | 2022-08-07 13:22 | ECG_ITS ---
APPROVED REPORT Exam: Resting ECG HR:67 bpm ECG Measurements Heart Rate 67 AXES RI 148 P 34 QRSd 85 QRS -33 QT 400 T 4 QTc 415 Conclusion SINUS RHYTHM LEFT AXIS DEVIATION [QRS AXIS < -30] ABNORMAL ECG UNCONFIRMED REPORT Electronically signed by : Dung Garcia MD 08/07/2022 21:08:53
[2022-08-07 13:34] LABS: Albumin 3.3 g/dL (2.9-4.4); Alpha-1-Globulin 0.3 g/dL (0.0-0.4); Alpha-2-Globulin 0.8 g/dL (0.4-1.0); Gamma Globulin 0.8 g/dL (0.4-1.8)
--- NOTE | 2022-08-07 13:34 | PC.NURSE ---
MADE AWARE OF D/C PT SAYS HER RIDE WILL BE HERE ABOUT 1600 THIS AFTERNOON
--- NOTE | 2022-08-07 13:58 | HMH.PHAINT1 ---
Pharmacy Intervention Comments: Discharge counseling completed at bedside with the patient. Discussed new medications (amlodipine, lisinopril, calcitonin, and spironolactone twice daily), continued medications, and discontinued medications (clonidine, etodolac, spironolactone once daily). Overviewed indications and possible side effects/mitigation strategies for each new medication. Patient verbalized understanding and has no questions or concerns at this time.
--- NOTE | 2022-08-07 15:14 | SW/DCPLANNER ---
The plan for this patient is to return home today. Patient is currently established with [facility] in [facility]. Updated patient information will be faxed to [facility] today.
[2022-08-08 15:49] LABS: Albumin, U 37.1 % (.); Alpha-1-Globulin, U 7.8 % (.); Alpha-2-Globulin, U 18.9 % (.); Beta Globulin, U 24.5 % (.); Gamma Globulin, U 11.8 % (.); M-Spike, % Not Observed % (Not Observed); Protein,Total,Urine 4.8 mg/dL (Not Estab.)
--- NOTE | 2022-08-09 13:57 | CARE MANAGER ---
Attempted to contact patient x2 related to hospital discharge. No VM option. AMIE Mccartney
--- NOTE | 2022-08-13 21:58 | EXP.DC.SUM ---
General Admission date:: 08/02/22 Discharge date: 08/07/22 HPI HPI HPI: Ms. Roberts is an 82-year-old female who states she began feeling poorly approximately 4 days ago. She states she began getting very weak and was nauseated. She did have some constipation and was taking laxatives at home. She states her upper and lower extremities began shaking. She had decreased p.o. intake, but had no vomiting or diarrhea. She presented to the emergency room for evaluation and was found to have acute kidney injury, hypercalcemia, and hypomagnesemia. She was admitted for further evaluation and treatment. Hospital Course Hospital Course Hospital Course: Abdominal pelvic CT showed moderate fecal debris throughout the colon reflecting constipation. There was extensive spinal fusion from the thoracic spine to the sacrum and there was a lucency surrounding the left sacral screw and a small portion of the right sacral screw suggesting loosening. The patient was admitted and started on IV fluids. Her sodium decreased and her creatinine remained the same. Her calcium decreased. A thyroid ultrasound was ordered due to her hypercalcemia and Lasix was ordered as well. Calcitonin nasal spray was ordered. Her blood pressure was elevated and clonidine was reordered. Cardiology was consulted as her pulse was low and it was felt she could be a candidate for a pacemaker. IM calcitonin 300 mg twice a day was added. Her potassium was low and had to be replaced. Her calcium decreased and she had less shaking and cramping. The thyroid ultrasound was normal and there had not been any indication of problems with the kidneys, pancreas, or adrenal glands. A bone scan was scheduled. Her potassium normalized as did her calcium. The calcitonin dose was decreased to once daily. She was less tremulous and had less discomfort in her hands and cramping. Her bone scan basically showed areas of inflammation consistent with arthritic problems. Nothing ominous was revealed, thus there was no explanation for the hypercalcemia. Renal tests and thyroid test were all normal. Her blood pressure and nausea improved and her calcium remained normal. She continued with the calcitonin nasal spray, but her subcutaneous calcitonin was discontinued. She had to be given more potassium due to hypokalemia. Her spironolactone was increased to 25 mg twice a day and the Lasix was decreased to 20 mg daily. Her CEA was within a normal range. The patient's labs were stable and it was felt she could be discharged home. She was seen in consultation by cardiology before her discharge and they had concern for a paraneoplastic syndrome as the source of her hypercalcemia, however her abdominal and pelvic CT was unremarkable. The bradycardia resolved with normalization of her calcium level and they recommended an echo but no plans for pacemaker. She was stable to be discharged home and will follow up with Dr. Baird on an outpatient basis. Exam Data for Last 24 hours Vital signs and Labs for Last 24 Hours: Temp Pulse Resp BP Pulse Ox 98.2 F 71 19 133/65 95 08/07/22 12:00 08/07/22 12:00 08/07/22 12:00 08/07/22 12:00 08/07/22 12:00 Narrative: Constitutional Constitutional: no acute distress *Routine HEENT Exam Head: Present normocephalic and atraumatic Eye: Present EOMI and PERRL ENT: Present mucous membranes dry *Routine Neck Exam Neck: Present supple and full ROM *Routine Respiratory Exam Respiratory: Present crackles (bibasilar) *Routine Cardiovascular Exam Cardiovascular: Present RRR and bradycardia *Routine Abdominal Exam Abdominal: Present soft and normoactive bowel sounds; Absent tenderness *Routine Rectal Exam Rectal:: deferred *Routine Genitalia Exam Genitalia:: deferred *Routine Extremities Exam Extremities: Present edema (bilateral LE's); Absent cyanosis or clubbing *Routine Skin Exam Skin: Present intact; Absent erythema *Routine Neurological Exam
[2022-08-26 20:04] LABS: Free Kappa Lt Chains 29.9; Free Lambda Lt Chains 24.6
== END 2022-08-07 16:06 | disposition home or self-care (01) ==
LOC: ER 23:22 → 2ND 08-02 00:43
PROVIDERS: Internal Medicine; Admitting Provider Family Medicine; Emergency Provider Emergency Medicine; PCP Nurse Practitioner; Visit Provider Family Medicine
DX: N17.9 Acute kidney failure, unspecified (principal); E83.52 Hypercalcemia; E87.1 Hypo-osmolality and hyponatremia; E83.41 Hypermagnesemia; M15.9 Polyosteoarthritis, unspecified; G89.29 Other chronic pain; E78.5 Hyperlipidemia, unspecified; I10 Essential (primary) hypertension; I49.5 Sick sinus syndrome; E87.6 Hypokalemia; Z79.899 Other long term (current) drug therapy; R00.1 Bradycardia, unspecified; R53.1 Weakness; G13.0 Paraneoplastic neuromyopathy and neuropathy; R79.89 Other specified abnormal findings of blood chemistry
CPT/HCPCS: G0378; 36415; 71045; 74176; 76536; 76770; 78306; 80048; 80053; 81001; 82150; 82306; 82330; 82378; 82962; 83605; 83690; 83735; 83883; 83970; 84100; 84145; 84155; 84156; 84165; 84166; 84436; 84443; 84484; 85025; 85651; 86140; 87040; 93005; 93306; 93976; 99285; A9503; C9803; J0630; J2405; U0003; U0005

== ENCOUNTER → 2022-08-11 15:00 | Outpatient (CLI) | payer MEDICARE, SELFPAY ==
[2022-08-11 19:49] LABS: Alanine Aminotransferase 19 U/L (12-78); Albumin/Globulin Ratio 1.5 (1.1-1.8); Alkaline Phosphatase 176 U/L (38-126); Anion Gap 13.5 mEq/L (5-15); Aspartate Amino Transferase 29 U/L (14-36); Bilirubin,Total 0.5 mg/dl (0.2-1.3); Blood Urea Nitrogen 33 mg/dl (7-17); Carbon Dioxide 22 mmol/L (22.0-30.0); Chloride 105 mmol/L (98-107); Estimated Glomerular Filt Rate 29 ml/min (>60); GFR (African American) 35 ML/MIN (>60); Globulin 2.7 g/dL (1.3-3.2); Glucose 92 mg/dl (74-100); Potassium 4.5 mmoL/L (3.5-5.1); Sodium 136 mmol/L (136-145); Total Protein,Serum 6.7 g/dl (6.3-8.2)
== END ==
PROVIDERS: PCP Family Medicine; Visit Provider Family Medicine
DX: E83.52 Hypercalcemia (principal)
CPT/HCPCS: 80053

== ENCOUNTER 2024-07-30 11:54 | Emergency (ER) | payer MEDICARE, SELFPAY ==
[2024-07-30 12:40] VITALS: BP 134/67; PULSE 68; RESP 17; TEMP 36.4; O2SAT 95; BMI 27.1
[2024-07-30 13:02] LABS: UTC Strep Screen (Rapid) Negative (Negative)
--- NOTE | 2024-07-30 13:21 | ED_ITS ---
Discharge Plan Disposition Patient Disposition: Home, Self-Care Condition: Good Prescriptions Prescriptions: New azithromycin [Zithromax] 250 mg tablet 250 mg PO UD DOSE PK Qty: 6 0RF Rx Instructions: Take two (2) tablets today, then one (1) tablet days #2 thru #5 benzonatate 100 mg capsule 100 mg PO TIDP PRN (Reason: Cough) Qty: 30 0RF No Action furosemide [Lasix] 40 mg tablet 40 mg PO DAILY Qty: 30 4RF potassium chloride 10 mEq tablet extended release See Rx Instructions .ROUTE .COMPLEX Qty: 180 0RF Dose Instruction: Take 1 tablet by mouth twice a day for Supplement Rx Instructions: Take 1 tablet by mouth twice a day for Supplement gabapentin 600 MG tablet 600 mg PO Q6H tramadol 50 MG tablet 50 mg PO Q6HP PRN (Reason: Moderate Pain) pantoprazole 40 mg tablet,delayed release (DR/EC) 40 mg PO DAILY atorvastatin 20 mg tablet 20 mg PO DAILY Patient Comments: TAKE 1 TABLET BY MOUTH DAILY fexofenadine [Chantel] 60 mg Tablet 60 mg PO BID Jardiance 10 mg tablet 10 mg PO DAILY Patient Comments: TAKE 1 TABLET BY MOUTH ONCE DAILY. Referrals Follow up/Referrals: Rosa Stearns DO [Primary Care Provider] - See instructions Activity Restrictions/Add. Instructions Additional Instructions/Restrictions: Drink plenty of fluids. Take tylenol or ibuprofen for pain or fever. Take the medications as directed. Follow up with your regular doctor. GO TO THE ER FOR ANY WORSENING SYMPTOMS Clinical Impressions Clinical Impression: Bronchitis, Pharyngitis Instructions Patient Instructions: DI for Acute Bronchitis Print Language Print Language: Luxembourgish Discharge ED Provider: Hamilton Swan [facility] HPI General Stated complaint: cough sore throat soa Mode of Arrival: Ambulatory Source of Information: Patient Limitations: No Limitations Time Seen by Provider: 07/30/24 13:17 Description of Symptoms (Recalled from Triage Doc. by RN): PATIENT C/O COUGH, SORE THROAT, AND VOMITING SINCE YESTERDAY HEENT Symptoms (Recalled from RN notes): Yes Resp Symptoms (Recalled from RN notes): Yes Skin Symptoms (Recalled from RN notes): No MS Symptoms (Recalled from RN notes): No Functional Status (Recalled from RN notes): WNL Related Data Home Medications ?Medication ?Instructions ?Recorded ?Confirmed gabapentin 600 mg tablet 600 mg PO Q6H Pain 03/09/19 11/20/24 tramadol 50 mg tablet 50 mg PO Q6HP PRN Moderate Pain 11/16/18 07/30/24 pantoprazole 40 mg tablet,delayed 40 mg PO DAILY GERD 08/01/22 07/30/24 release atorvastatin 20 mg tablet 20 mg PO DAILY High cholesterol 08/02/22 07/30/24 empagliflozin 10 mg tablet 10 mg PO DAILY 07/30/24 07/30/24 (Jardiance) fexofenadine 60 mg tablet 60 mg PO BID 07/30/24 07/30/24 Previous Rx's ?Medication ?Instructions ?Recorded furosemide 40 mg tablet (Lasix) 40 mg PO DAILY Fluid #30 tabs 05/12/22 potassium chloride 10 mEq See Rx Instructions .Route 11/22/22 tablet,extended release .COMPLEX #180 tabs azithromycin 250 mg tablet 250 mg PO UD DOSE PK #6 tabs 07/30/24 (Zithromax) benzonatate 100 mg capsule 100 mg PO TIDP PRN Cough #30 caps 07/30/24 Allergies Allergy/AdvReac Type Severity Reaction Status Date / Time acetaminophen (From PERCOCET) Allergy Mild Verified 08/29/22 10:23 codeine (CODEINE) Allergy Mild Verified 08/29/22 10:23 cyclobenzaprine (From Allergy Mild Verified 08/29/22 10:23 Flexeril) morphine (MORPHINE) Allergy Mild Verified 08/29/22 10:23 oxycodone (From PERCOCET) Allergy Mild Verified 08/29/22 10:23 penicillin G (PENICILLIN G) Allergy Mild Verified 08/29/22 10:23 loratadine (From CLARITIN) Allergy Unknown Verified 08/29/22 10:23 meperidine (From Demerol) AdvReac Mild Verified 08/29/22 10:23 simvastatin (From Zocor) AdvReac Mild Verified 08/29/22 10:23 Worker's Comp Is this a Worker's Comp case?: No [facility] Disclaimer: The information contained in this section may have been updated after the patient was seen, as this information can be updated by other users. Medical History (Updated 07/30/24 @ 13:51 by Hamilton Swan APRN) Localized edema Hypercalcemia Chronic low back pain Renal insufficiency History of cellulitis History of CHF (congestive heart failure) History of pneumonia History of hypertension History of fall History of acute renal failure History of hyperkalemia History of hypokalemia Dependent on walker for ambulation Fall at home Post concussion syndrome Pain in thoracic spine at multiple sites Concussion Concussion without loss of consciousness Hyperkalemia Localized edema Facial contusion Hypernatremia Enteritis RLL pneumonia Cellulitis Non-compliance with treatment Radial fracture Surgical History History of hysterectomy S/P insertion of spinal cord stimulator History of back surgery History of knee replacement History of cholecystectomy History of knee replacement procedure of left knee Family History Other Coronary artery disease Heart attack Social History Smoking Status: Never smoker second hand exposure: Yes alcohol intake: never substance use type: denies use current occupational status: retired and other household members: children housing: house lives independently: No marital status: current occupational exposures/hazards: No caffeine: Yes special michael needs: No agree to transfusion: No ROS Obtained: Yes All systems reviewed & no additional complaints except as documented Constitutional Constitutional: Reports chills and Reports fever(s) Eyes Eyes: Denies eye discharge ENT Ears, Nose, Mouth, and Throat: Reports as per HPI Cardiovascular Cardiovascular: Denies chest pain Respiratory Respiratory: Denies chest congestion and Reports cough Gastrointestinal Gastrointestingal: Reports nausea; Denies abdominal pain, constipation, cramping, diarrhea or vomiting Musculoskeletal Musculoskeletal: Denies arthralgias Integumentary/Breasts Skin/Breast: Denies rash Neurologic Neurologic: Denies paresthesias Physical Exam General General appearance: alert and in no apparent distress Head Head exam: atraumatic, normocephalic and normal inspection Eye Eye exam: Present normal appearance; Absent PERRL or EOMI ENT ENT exam: Present mucous membranes moist and normal external ear exam Expanded ENT Exam TM/Canal exam: Bilateral TM: erythema, bulging and effusion Nose exam: Absent sinus tenderness Nasal speculum exam: Bilateral: normal Mouth exam: Present normal external inspection and other; Absent drooling Teeth exam: Present normal inspection Throat exam: Present tonsillar erythema and tonsillomegaly Neck Neck exam: Present normal inspection, full ROM and trachea midline; Absent tenderness, meningismus or lymphadenopathy Chest Chest inspection: Present normal inspection and symmetric chest wall rise; Absent tenderness Respiratory Respiratory exam: Present normal lung sounds bilaterally; Absent respiratory distress, wheezes or stridor Cardiovascular Cardiovascular exam: Present regular rate, normal rhythm and normal heart sounds; Absent tachycardia or irregular rhythm Abdominal Exam Abdominal exam: Present soft and normal bowel sounds; Absent distention, tenderness, guarding, rebound or rigidity Extremities Exam Extremities exam: Present normal inspection and normal capillary refill; Absent tenderness, joint swelling or calf tenderness Back Exam Back exam: Present normal inspection and full ROM; Absent tenderness, CVA tenderness (R) or CVA tenderness (L) Neurological Exam Neurological exam: Present alert, oriented X3, CN II-XII intact, normal gait and reflexes normal; Absent motor sensory deficit Psychiatric Psychiatric exam: Present normal affect and normal mood Skin Skin exam: Present warm, dry, intact and normal color Lymphatic Lymphatic Findings: no adenopathy Medical Decision Making Medical Records Medical records reviewed: No I reviewed the patient's medical records. Screening: Per USPSTF and CDC recommendations, given the prevalence of disease in our region, it is our hospital?s policy to screen for HIV and viral Hepatitis for all patients aged 18 and over and those with ongoing risk factors. Akin Inquiry Pt receiving controlled substance: No Vital Signs: 07/30/24 12:40 Temperature 97.6 F Temperature Source Oral Pulse Rate [Right Brachial] 68 Respiratory Rate 17 Blood Pressure [Right Arm] 134/67 Blood Pressure Mean [Right Arm] 89 Blood Pressure Source [Right Arm] Automatic Cuff Blood Pressure Position [Right Arm] Sitting 02 Sat by Pulse Oximetry 95 Oxygen Delivery Method Room Air Lab Data Lab Results 07/30/24 12:45: Strep Scn Rapid Clinic Negative Orders (Tests/Meds): ORDERS Category Date Time Status Strep Screen Confirmation Stat Micro 07/30/24 12:45 Received
[2024-07-30 13:43] VITALS: BP 134/67; PULSE 68; RESP 17; TEMP 36.4; O2SAT 95
[2024-07-30 14:08] LABS: Coronavirus 19, PCR Not Detected (NotDetected); Influenza A, PCR Not Detected (NotDetected); Influenza B, PCR Not Detected (NotDetected)
== END 2024-07-30 14:02 | disposition home or self-care (01) ==
PROVIDERS: Emergency Provider Nurse Practitioner Family; PCP Student in an Organized Health Care Education/Training Program
DX: J02.9 Acute pharyngitis, unspecified (principal); J20.9 Acute bronchitis, unspecified
CPT/HCPCS: 87636; 87880; 99213; G0381